=== PATIENT | female | born 1950 | race Caucasian/White ===

== ENCOUNTER → 2018-01-13 | Outpatient (CLI) | payer MEDICARE ==
--- NOTE | 2018-01-13 16:34 | MR ---
MR brain HISTORY: Memory loss Multiplanar multisequence imaging through the brain No comparisons There is no restricted diffusion. No hemorrhage or hydrocephalus. Corpus callosum, pituitary, cervica l medullary junction are normal. Scattered hyperintensities are present on inversion recovery and T2- weighted sequences within the deep white matter, periventricular white matter, subcortical and juxtac ortical white matter. There are approximately 40-50 lesions present. There is no mass effect or midli ne shift. No hydrocephalus or hemorrhage. Cerebellopontine angles, corpus callosum, pituitary, cervic al medullary junction are normal. The orbits show symmetric appearance. There are normal vascular alvina w voids. Paranasal sinuses are well aerated. Mastoids show no significant inflammatory change. There is atrophy likely age-related. IMPRESSION: Nonspecific white matter demyelination. Age-related atrophy.
== END | disposition home or self-care (01) ==
LOC: RADMRIMAIN 12:20
PROVIDERS: ATTEND Psychiatry & Neurology Neurology
DX: G37.8 Other specified demyelinating diseases of central nervous system (principal); G31.1 Senile degeneration of brain, not elsewhere classified
CPT/HCPCS: 70551

== ENCOUNTER → 2019-02-03 | Outpatient (CLI) | payer MEDICARE, OTHER | LOC: LABWHC1 10:45 | PROVIDERS: ATTEND Ophthalmology | DX: H53.9 Unspecified visual disturbance (principal) | CPT/HCPCS: 36415; 82565; 84520 ==

== ENCOUNTER → 2019-02-05 | Outpatient (CLI) | payer MEDICARE, OTHER | END | disposition home or self-care (01) | LOC: RADMRIMAIN 08:02 | PROVIDERS: ATTEND Ophthalmology | DX: Z53.9 Procedure and treatment not carried out, unspecified reason (principal) ==

== ENCOUNTER → 2019-06-08 | Outpatient (CLI) | payer MEDICARE, OTHER ==
--- NOTE | 2019-06-08 10:45 | CT ---
EXAMINATION TYPE: CT abdomen pelvis w con DATE OF EXAM: 06/08/2019 COMPARISON: None HISTORY: Colovesical fistula CT DLP: 1927 mGycm Automated exposure control for dose reduction was used. TECHNIQUE: Helical acquisition of images was performed from the lung bases through the pelvis. CONTRAST: Performed with Oral Contrast and with IV Contrast, patient injected with 50 ml mL of Isovue 300. FINDINGS: LUNG BASES: Innumerable tiny scattered pulmonary nodules are seen in the right middle lobe, right low er lobe and left lower lobe with the largest nodule seen in the left lower lobe measuring up to 1.6 c m and best seen on axial image 16. Adjacent linear atelectasis in smaller nodules are also seen in th is area. No pleural effusion. Post surgical changes of gastric lap band. LIVER/GB: Liver is normal in size. Gallbladder surgically absent. PANCREAS: No significant abnormality is seen. SPLEEN: No significant abnormality is seen. ADRENALS: No significant abnormality is seen. KIDNEYS: Atrophy of the bilateral kidneys. No evidence of hydronephrosis. Multiple cysts are seen in the bilateral kidneys with the largest seen in the inferior pole on the left measuring up to 3.0 cm. RETROPERITONEAL ADENOPATHY: None visualized REPRODUCTIVE ORGANS: Uterus is surgically absent. PELVIC ADENOPATHY: None visualized. OSSEOUS STRUCTURES: Grade 1 anterolisthesis of L5 on S1 with posterior fusion at L5-S1. Multilevel t horacolumbar spondylosis. No acute compression deformity. Degenerative changes of the bilateral hips, right greater than left. BOWEL: Diffuse marrow wall thickening is seen in the sigmoid colon with multiple areas of pericoloni c fat stranding and a small amount of simple fluid within the pelvic cul-de-sac. Oral contrast is see n reaching the rectum and mid sigmoid. There appears to be a small amount of contrast entering the clarke perior portion of the urinary bladder which is best seen on axial page 93 and coronal page 63. There is also air within the anterior urinary bladder measuring 2.0 cm and seen on axial image page 92. The re is diffuse bladder wall thickening and inflammatory stranding. No evidence of enhancing loculated fluid collection to suggest abscess. No free intraperitoneal air. 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 Innumerable scattered lung nodules with the largest soft tissue nodule seen in the left lower lobe me asuring up to 1.6 cm. Given the size, neoplastic process is not excluded. Further evaluation with ded icated CT of the chest with contrast is recommended.
== END | disposition home or self-care (01) ==
LOC: RADCTMAIN 06-07 07:41
PROVIDERS: ATTEND Surgery
DX: N32.1 Vesicointestinal fistula (principal)
CPT/HCPCS: 82565; 84520; 74177; 36415; Q9967

== ENCOUNTER → 2019-06-14 | Outpatient (CLI) | payer MEDICARE, OTHER ==
--- NOTE | 2019-06-14 08:31 | CT ---
EXAMINATION TYPE: CT chest w con DATE OF EXAM: 06/14/2019 COMPARISON: Abdomen and pelvis 06/08/2019 HISTORY: 68-year-old female Lung Nodule TECHNIQUE: Contiguous axial scanning of the chest after the administration of 50 ml mL of Isovue 370. Subsequent 50 mL saline bolus. Coronal/sagittal reconstructions performed. CT DLP: 628mGycm. Automatic exposure control utilized for a dose reduction. FINDINGS: Heart normal size without pericardial effusion. Coronary vessel calcifications are present. Aorta normal caliber with mild arch calcifications and conventional arch vessel branching anatomy. No thoracic lymphadenopathy. Redemonstrated in multiple bilateral pulmonary nodules, mostly measuring 5 mm or smaller, largest on the right measuring 8 mm at the medial right base and 6 mm in the right upper lobe. Largest on the le ft is within the left lower lobe measuring 1.6 cm as seen on 06/08/2019. No consolidation or pleural effusion. Tiny hiatal hernia. Lap band device visualized in the upper abdomen. Abdomen reported separately on r ecent CT. Bones: Bridging anterior endplate spondylosis suggestive of DISH in the mid to lower thoracic spine. IMPRESSION: Innumerable pulmonary nodules redemonstrated throughout the bilateral lungs. Most of the nodules janette ure 5 mm or smaller. The largest is the same nodule in the left lower lobe seen on 06/08/2019 measurin g 1.6 cm. Granulomatous disease, atypical infections, and metastatic disease are some differential co nsiderations. Follow-up CT in 3 months is recommended. Alternatively, given the size of the dominant nodule and depending on patient risk factors, PET CT may be considered.
== END | disposition home or self-care (01) ==
LOC: RADCTMAIN 06:21
PROVIDERS: ATTEND Surgery
DX: R91.8 Other nonspecific abnormal finding of lung field (principal)
CPT/HCPCS: 82565; 84520; 71260; 36415; Q9967

== ENCOUNTER 2019-06-23 01:07 | Inpatient (IN) | payer MEDICARE, OTHER ==
[2019-06-23] MEDS ORDERED: ACETAMINOPHEN TAB 500 MG TAB PO STA (01:35)
--- NOTE | 2019-06-23 01:37 | ED ---
General Adult HPI - General Chief complaint: Chest Pain Stated complaint: chest pain Time Seen by Provider: 06/23/19 01:35 Source: patient, family, EMS Mode of arrival: EMS - History of Present Illness Initial comments: Hannah is a 68-year-old female with multiple medical problems who presents to the emergency department today for evaluation of fever, an episode of Cordelia's which the patient described a shaking so hard she couldn't move her body and she began to develop pain all over her body including chest pain. She denies any diaphoresis shortness of breath. Patient does report a fever which was noted to be greater than 103 upon arrival. Patient states that she has a history of a colovesicular fistula and chronic urinary tract infections, she completed a oral antibiotics earlier today and was told by her surgeon that they do not want any other antibiotics until she has surgery she is scheduled to see her surgeon next week. - Related Data Home Medications Medication Instructions Recorded Confirmed Allopurinol [Zyloprim] 300 mg PO HS 10/13/14 10/24/14 Aspirin 325 mg PO DAILY 10/13/14 10/24/14 Atenolol [Tenormin] 25 mg PO QAM 10/13/14 10/24/14 Atorvastatin [Lipitor] 40 mg PO HS 10/13/14 10/24/14 Clopidogrel [Plavix] 75 mg PO DAILY 10/13/14 10/24/14 Furosemide [Lasix] 40 mg PO DAILY 10/13/14 10/24/14 Gemfibrozil [Lopid] 600 mg PO AC-BID 10/13/14 10/24/14 Hydrocodone/Acetaminophen [[place] 1 each PO TID PRN 10/13/14 10/24/14 5-325] Loratadine [Claritin] 10 mg PO DAILY 10/13/14 10/24/14 Losartan/Hydrochlorothiazide 0.5 tab PO QAM 10/13/14 10/24/14 [Losartan-Hctz 100-12.5 mg Tab] Metolazone [Zaroxolyn] 5 mg PO DAILY 10/13/14 10/24/14 Multivitamins, Thera [Multivitamin] 1 each PO DAILY 10/13/14 10/24/14 Pantoprazole Sodium [Protonix] 40 mg PO QAM 10/13/14 10/24/14 Tylenol Arthritis 2 tab PO BID PRN 10/13/14 10/24/14 Cholecalciferol [Vitamin D3] 5,000 unit PO DAILY 10/24/14 10/24/14 Pseudoephedrine HCl [Sudafed] 30 mg PO Q4HR PRN 10/24/14 10/24/14 Previous Rx's Medication Instructions Recorded Cephalexin [Keflex] 500 mg PO Q6HR #20 cap 10/25/14 HYDROcodone/APAP 7.5-325MG [[place] 2 each PO Q6H PRN #90 tab 10/25/14 7.5-325] Allergies Allergy/AdvReac Type Severity Reaction Status Date / Time ibuprofen [From Motrin] Allergy KIDNEY Verified 10/24/14 10:58 FAILURE Iodinated Contrast- Oral and Allergy Rash/Hives Verified 10/24/14 10:58 IV Dye [Iodinated Contrast Media - IV Dye] isoniazid Allergy RASH,WT Verified 10/24/14 10:58 GAIN,ELEV B/P,ELEV BLOOD SUGAR morphine Allergy Dyspnea Verified 10/24/14 10:58 venom-honey bee Allergy SWELLING, Verified 10/24/14 10:58 [bee venom (honey bee)] HIVES meperidine HCl [From Demerol] AdvReac Nausea & Verified 10/24/14 10:58 Vomiting SHRIMP Allergy Rash/Hives Uncoded 10/24/14 10:58 VACCINE PRESERVATIVES Allergy HIVES Uncoded 10/24/14 10:58 Review of Systems ROS Statement: Those systems with pertinent positive or pertinent negative responses have been documented in the HPI. ROS Other: All systems not noted in ROS Statement are negative. Past Medical History Past Medical History: Diabetes Mellitus, Deep Vein Thrombosis (DVT), Hyperlipidemia, Hypertension, Myocardial Infarction (MO), Osteoarthritis (OA), Pulmonary Embolus (PE), Renal Disease Additional Past Medical History / Comment(s): 10/24/14 Pt admitted s/p total R shoulder and injection R hand's middle finger. Other HX: NEURAPATHY CRISTOPHER HANDS AND FEET,MITRAL VALVE PROLAPSE,VARICOSE VEINS, STEROID INJECTIONS W/IN 3 MOS,KIDNEY STONES,RECENT TX FOR UA W/ BACTRIM. Colorectal fistula 2018 Last Myocardial Infarction Date:: 2006 History of Any Multi-Drug Resistant Organisms: None Reported Past Surgical History: Appendectomy, Cholecystectomy, Heart Catheterization With Stent, Hysterectomy, Tonsillectomy Additional Past Surgical History / Comment(s): 10/24/14 Total R shoulder and in jection R middle finger. COLECTOMY R/T RUPTURED DIVERTICULI AND ABSCESS,LAB BAND 2007-FILL PRESENT TO SEE DR FREGOSO PRIOR TO OR TO HAVE REMOVED.,CARDIAC STENTS X2, REPAIR RT ACHILLES TENDON,CRISTOPHER CARPEL TUNNEL REPAIR,LT RADIAL HEAD PARTIALLY REMOVED W/ REPAIR,LAMINECTOMY L1-L4,FUSION L5-S1 Past Anesthesia/Blood Transfusion Reactions: No Reported Reaction Date of Last Stent Placement:: 2006 Past Psychological History: No Psychological Hx Reported Smoking Status: Never smoker Past Alcohol Use History: Occasional Past Drug Use History: None Reported - Past Family History Father Family Medical History: Deep Vein Thrombosis (DVT), Pulmonary Embolus Mother Family Medical History: Deep Vein Thrombosis (DVT), Pulmonary Embolus General Exam - General Exam Comments Initial Comments: Physical Exam GENERAL: Chronically ill appearing HENT: Normocephalic, Atraumatic. EYES: PERRL, EOMI PULMONARY: Unlabored respirations. No audible rales rhonchi or wheezing was noted. CARDIOVASCULAR: There is a regular rate and rhythm without any murmurs gallops or rubs. ABDOMEN: Soft and nontender with normal bowel sounds. SKIN: Skin is clear with no lesions or rashes and otherwise unremarkable. Hot to touch : Deferred NEUROLOGIC: Patient is alert and oriented x3. Moving all extremities spontaneously MUSCULOSKELETAL: Normal extremities with adequate strength and full range of motion. No lower extremity swelling or edema. No calf tenderness. PSYCHIATRIC: Normal psychiatric evaluation. Course Vital Signs 06/23/19 06/23/19 06/23/19 01:12 01:15 02:15 Temperature 103.1 F H 101.3 F H Pulse Rate 106 H 105 H 98 Respiratory 20 24 22 Rate Blood Pressure 120/70 109/78 93/50 O2 Sat by Pulse 95 95 95 Oximetry 06/23/19 06/23/19 06/23/19 03:15 04:40 04:53 Temperature 100.1 F H Pulse Rate 96 99 98 Respiratory 20 20 20 Rate Blood Pressure 97/48 O2 Sat by Pulse 95 Oximetry 06/23/19 06/23/19 06/23/19 05:05 05:10 05:15 Temperature Pulse Rate 106 H 105 H 104 H Respiratory Rate Blood Pressure 82/68 82/68 87/49 O2 Sat by Pulse 98 98 97 Oximetry 06/23/19 05:52 Temperature 99.4 F Pulse Rate 97 Respiratory 20 Rate Blood Pressure 98/52 O2 Sat by Pulse 97 Oximetry - Reevaluation(s) Reevaluation #1: Called to the patient's bedside at approximately 4:15 AM, patient having tongue swelling and difficulty breathing after receiving Rocephin. ALLERGIC reaction medications were ordered. 06/23/19 04:33 EKG Findings - EKG Comments: EKG Findings:: EKG was obtained as part of a septic workup, EKG obtained at 1:20 AM, rate is 105 rhythm is sinus tachycardia with a right bundle-branch block, RI 140, curious 150, QTC [address] elevations there are ST depressions the patient is not having any active chest pain. Medical Decision Making - Medical Decision Making The patient was seen and evaluated upon arrival emergency department patient was noted be febrile tachycardic with a known source of infection being a urinary tract infection therefore septic workup was initiated Labs results with the slightly worsening kidney function, urinalysis consistent with urinary tract infection Rocephin was ordered Patient care was discussed with Dr. Escalante who agrees with plan for admission to the hospital, patient's blood pressure was mildly low lactic was elevated at 3 therefore additional IV fluids were ordered Based on patient's height her ideal body weight is 63 kg therefore 1900 mL's of fluid would be adequate to meet the 30 mL/kg bolus care was discussed with her primary care physician Dr. Ferreira who will be admitting to the [facility] this week Patient care was discussed with admitting physician Dr. Escalante who agrees with plan for admission, he came to bedside and evaluated the patient within expressed concern that prior to arrival she did have some right sided weakness, therefore computed tomography scan of the head was ordered. Patient went to CT head imaging study without any contrast to return to the room. Upon return patient began complaining that she felt that her tongue was swelling she is having difficulty speaking. I was called to bedside to evaluate the patient noted that she did have angioedema of her tongue and sublingual region, in addition she had some mild expiratory wheezing. At this time treatment for ALLERGIC reaction was initiated with IM epinephrine, IV Benadryl, Solu-Medrol and Pepcid. As well as a breathing treatment. Patient care was again discussed with Dr. Mahmoud recommends patient be admitted to the ICU given that she has angioedema Patient was reevaluated after meds. Angioedema is no longer worsening she is no longer wheezing she never developed hives. However patient is warm to the touch and skin is clammy. I suspect is secondary to sepsis. At this time patient will be transferred to the ICU for further management. Patient does remain mildly hypotensive however mean arterial pressure is in the 70s. - Lab Data Result diagrams: 06/23/19 01:33 06/23/19 01:33 Lab Results 06/23/19 06/23/19 06/23/19 Range/Units 01:33 01:33 01:33 WBC 9.4 (3.8-10.6) k/uL RBC 4.46 (3.80-5.40) m/uL Hgb 12.7 (11.4-16.0) gm/dL Hct 39.3 (34.0-46.0) % MCV 88.2 (80.0-100.0) fL MCH 28.4 (25.0-35.0) pg MCHC 32.2 (31.0-37.0) g/dL RDW 18.8 H (11.5-15.5) % Plt Count 208 (150-450) k/uL Neutrophils % 89 % Lymphocytes % 5 % Monocytes % 4 % Eosinophils % 1 % Basophils % 0 % Neutrophils # 8.4 H (1.3-7.7) k/uL Lymphocytes # 0.5 L (1.0-4.8) k/uL Monocytes # 0.4 (0-1.0) k/uL Eosinophils # 0.1 (0-0.7) k/uL Basophils # 0.0 (0-0.2) k/uL Anisocytosis Slight PT (9.0-12.0) sec INR (<1.2) APTT (22.0-30.0) sec Sodium 138 (137-145) mmol/L Potassium 3.9 (3.5-5.1) mmol/L Chloride 98 (98-107) mmol/L Carbon Dioxide 28 (22-30) mmol/L Anion Gap 12 mmol/L BUN 39 H (7-17) mg/dL Creatinine 1.76 H (0.52-1.04) mg/dL Est GFR (CKD-EPI)AfAm 34 (>60 ml/min/1.73 sqM) Est GFR (CKD-EPI)NonAf 29 (>60 ml/min/1.73 sqM) Glucose 158 H (74-99) mg/dL Lactic Ac Sepsis Rflx Plasma Lactic Acid Steve 3.0 H* (0.7-2.0) mmol/L Calcium 9.0 (8.4-10.2) mg/dL Total Bilirubin 0.6 (0.2-1.3) mg/dL AST 21 (14-36) U/L ALT 23 (9-52) U/L Alkaline Phosphatase 75 (38-126) U/L Troponin I (0.000-0.034) ng/mL Total Protein 6.7 (6.3-8.2) g/dL Albumin 3.8 (3.5-5.0) g/dL Urine Color Urine Appearance (Clear) Urine pH (5.0-8.0) Ur Specific [place] (1.001-1.035) Urine Protein (Negative) Urine Glucose (UA) (Negative) Urine Ketones (Negative) Urine Blood (Negative) Urine Nitrite (Negative) Urine Bilirubin (Negative) Urine Urobilinogen (<2.0) mg/dL Ur Leukocyte Esterase (Negative) Urine RBC (0-5) /hpf Urine WBC (0-5) /hpf Urine WBC Clumps (None) /hpf Ur Squamous Epith Cells (0-4) /hpf Urine Bacteria (None) /hpf 06/23/19 06/23/19 06/23/19 Range/Units 01:33 01:33 01:33 WBC (3.8-10.6) k/uL RBC (3.80-5.40) m/uL Hgb (11.4-16.0) gm/dL Hct (34.0-46.0) % MCV (80.0-100.0) fL MCH (25.0-35.0) pg MCHC (31.0-37.0) g/dL RDW (11.5-15.5) % Plt Count (150-450) k/uL Neutrophils % % Lymphocytes % % Monocytes % % Eosinophils % % Basophils % % Neutrophils # (1.3-7.7) k/uL Lymphocytes # (1.0-4.8) k/uL Monocytes # (0-1.0) k/uL Eosinophils # (0-0.7) k/uL Basophils # (0-0.2) k/uL Anisocytosis PT 10.3 (9.0-12.0) sec INR 1.0 (<1.2) APTT 31.3 H (22.0-30.0) sec Sodium (137-145) mmol/L Potassium (3.5-5.1) mmol/L Chloride (98-107) mmol/L Carbon Dioxide (22-30) mmol/L Anion Gap mmol/L BUN (7-17) mg/dL Creatinine (0.52-1.04) mg/dL Est GFR (CKD-EPI)AfAm (>60 ml/min/1.73 sqM) Est GFR (CKD-EPI)NonAf (>60 ml/min/1.73 sqM) Glucose (74-99) mg/dL Lactic Ac Sepsis Rflx Plasma Lactic Acid Steve (0.7-2.0) mmol/L Calcium (8.4-10.2) mg/dL Total Bilirubin (0.2-1.3) mg/dL AST (14-36) U/L ALT (9-52) U/L Alkaline Phosphatase (38-126) U/L Troponin I <0.012 (0.000-0.034) ng/mL Total Protein (6.3-8.2) g/dL Albumin (3.5-5.0) g/dL Urine Color Yellow Urine Appearance Cloudy H (Clear) Urine pH 5.0 (5.0-8.0) Ur Specific [place] 1.015 (1.001-1.035) Urine Protein 1+ H (Negative) Urine Glucose (UA) 4+ H (Negative) Urine Ketones Negative (Negative) Urine Blood Moderate H (Negative) Urine Nitrite Positive H (Negative) Urine Bilirubin Negative (Negative) Urine Urobilinogen <2.0 (<2.0) mg/dL Ur Leukocyte Esterase Large H (Negative) Urine RBC 39 H (0-5) /hpf Urine WBC >182 H (0-5) /hpf Urine WBC Clumps Many H (None) /hpf Ur Squamous Epith Cells 8 H (0-4) /hpf Urine Bacteria Occasional H (None) /hpf 06/23/19 Range/Units 02:01 WBC (3.8-10.6) k/uL RBC (3.80-5.40) m/uL Hgb (11.4-16.0) gm/dL Hct (34.0-46.0) % MCV (80.0-100.0) fL MCH (25.0-35.0) pg MCHC (31.0-37.0) g/dL RDW (11.5-15.5) % Plt Count (150-450) k/uL Neutrophils % % Lymphocytes % % Monocytes % % Eosinophils % % Basophils % % Neutrophils # (1.3-7.7) k/uL Lymphocytes # (1.0-4.8) k/uL Monocytes # (0-1.0) k/uL Eosinophils # (0-0.7) k/uL Basophils # (0-0.2) k/uL Anisocytosis PT (9.0-12.0) sec INR (<1.2) APTT (22.0-30.0) sec Sodium (137-145) mmol/L Potassium (3.5-5.1) mmol/L Chloride (98-107) mmol/L Carbon Dioxide (22-30) mmol/L Anion Gap mmol/L BUN (7-17) mg/dL Creatinine (0.52-1.04) mg/dL Est GFR (CKD-EPI)AfAm (>60 ml/min/1.73 sqM) Est GFR (CKD-EPI)NonAf (>60 ml/min/1.73 sqM) Glucose (74-99) mg/dL Lactic Ac Sepsis Rflx Y Plasma Lactic Acid Steve (0.7-2.0) mmol/L Calcium (8.4-10.2) mg/dL Total Bilirubin (0.2-1.3) mg/dL AST (14-36) U/L ALT (9-52) U/L Alkaline Phosphatase (38-126) U/L Troponin I (0.000-0.034) ng/mL Total Protein (6.3-8.2) g/dL Albumin (3.5-5.0) g/dL Urine Color Urine Appearance (Clear) Urine pH (5.0-8.0) Ur Specific [place] (1.001-1.035) Urine Protein (Negative) Urine Glucose (UA) (Negative) Urine Ketones (Negative) Urine Blood (Negative) Urine Nitrite (Negative) Urine Bilirubin (Negative) Urine Urobilinogen (<2.0) mg/dL Ur Leukocyte Esterase (Negative) Urine RBC (0-5) /hpf Urine WBC (0-5) /hpf Urine WBC Clumps (None) /hpf Ur Squamous Epith Cells (0-4) /hpf Urine Bacteria (None) /hpf Critical Care Time Critical Care Time: Yes Total Critical Care Time: 75 Critical Care Time: Critical Care Time Critical care time was exclusive of separately billable procedures and treating other patients and teaching time. Critical care was necessary to treat or prevent imminent or life-threatening deterioration. Given the critical condition in which the patient arrived, the patient was immediately assessed by myself and the nurse, and cardiac monitoring initiated due to the potential for rapid decompensation of the patient's clinical condition. During the course of the patients stay, I spent a considerable amount of time at the bedside performing serial re-evaluations of the patient's hemodynamic and clinical status because of the recognized potential threat to life or limb in this condition. I then had a chance to review not only all of the available current laboratory and radiographic studies obtained today, but I also reviewed old records available to me at the time. Additionally, any ancillary information available including recording artist records were reviewed. Sequential vital signs were obtained. Disposition Clinical Impression: Sepsis, UTI (urinary tract infection), Angioedema, Allergic reaction caused by a drug Disposition: ADMITTED IP TO THIS [facility] Condition: Serious
[2019-06-23 01:45] LABS: Anisocytosis Slight; Basophils % (A) 0 %; Eosinophils # (A) 0.1 k/uL (0-0.7); Eosinophils % (A) 1 %; HCT 39.3 % (34.0-46.0); HGB 12.7 gm/dL (11.4-16.0); Lymphocytes # (A) 0.5 k/uL (1.0-4.8); Lymphocytes % (A) 5 %; MCH 28.4 pg (25.0-35.0); MCHC 32.2 g/dL (31.0-37.0); MCV 88.2 fL (80.0-100.0); Mean Platelet Volume 7.1; Monocytes # (A) 0.4 k/uL (0-1.0); Monocytes % (A) 4 %; Neutrophils # (A) 8.4 k/uL (1.3-7.7); Neutrophils % (A) 89 %; Platelet Count 208 k/uL (150-450); RBC 4.46 m/uL (3.80-5.40); RDW 18.8 % (11.5-15.5); WBC 9.4 k/uL (3.8-10.6)
[2019-06-23 01:52] LABS: Appearance,Urine Cloudy (Clear); Bacteria,Urine Occasional /hpf; Bilirubin,Urine Negative (Negative); Blood,Urine Moderate (Negative); Color,Urine Yellow; Glucose,Urine (UA) 4+ (Negative); Ketones,Urine Negative (Negative); Leukocyte Esterase,Urine Large (Negative); Nitrite,Urine Positive (Negative); Protein,Urine 1+ (Negative); RBC,Urine 39 /hpf (0-5); Specific Gravity,Urine 1.015 (1.001-1.035); Squamous Epithelial Cell,Urine 8 /hpf (0-4); Urobilinogen,Urine <2.0 mg/dL (<2.0); WBC,Urine >182 /hpf (0-5)
[2019-06-23 01:58] LABS: Albumin 3.8 g/dL (3.5-5.0); Potassium 3.9 mmol/L (3.5-5.1); Total Bilirubin 0.6 mg/dL (0.2-1.3); Total Protein 6.7 g/dL (6.3-8.2)
[2019-06-23 01:59] LABS: Partial Thromboplastin Time 31.3 sec (22.0-30.0); Prothrombin Time 10.3 sec (9.0-12.0)
[2019-06-23] MEDS: SODIUM CHLORIDE 0.9% 500 ML 500 ML IV SCH ×3 (01:59→03:07)
[2019-06-23] MEDS ORDERED: NALOXONE 0.4 MG/ML 1 ML VIAL IV PRN (02:47)
[2019-06-23] MEDS ORDERED: ACETAMINOPHEN TAB 325 MG TAB PO PRN ×2 (02:47→04:02)
[2019-06-23] MEDS ORDERED: SODIUM CHLORIDE 0.9% 500 ML 500 ML IV ONE (03:10)
[2019-06-23] MEDS ORDERED: SODIUM CHLORIDE 0.9% 1,000 ML IV ONE (03:10)
[2019-06-23] MEDS: SODIUM CHLORIDE 0.9% 1,000 ML IV SCH ×3 (03:19→20:55)
[2019-06-23 03:47] LABS: Glucose,Whole Blood 152 mg/dL (75-99)
--- NOTE | 2019-06-23 04:15 | CT ---
EXAM: CT Head Without Intravenous Contrast CLINICAL HISTORY: ITS.REASON CT Reason: right sided weakness resolved ?TIA TECHNIQUE: Axial computed tomography images of the head/brain without intravenous contrast. CTDI is 49 mGy and DLP is 1274 mGy-cm. This CT exam was performed using one or more of the following dose reduction techniques: automated exposure control, adjustment of the mA and/or kV according to patient size, and/or use of iterative reconstruction technique. COMPARISON: MRI brain 01/13/18 FINDINGS: Brain: No hemorrhage, large hypodensity, or mass effect. Ventricles: No hydrocephalus. Bones/joints: Unremarkable. Soft tissues: Unremarkable. Sinuses: Unremarkable. Mastoid air cells: Clear. IMPRESSION: No acute hemorrhage, hydrocephalus, or mass effect.
--- NOTE | 2019-06-23 04:19 | P.HPIM ---
History of Present Illness H&P Date: 06/23/19 Chief Complaint: Chest pain 68-year-old female with history of diabetes CK D3, colovesical fistula Patient reports that she was sleeping when she woke up at 11:30 before midnight she couldn't move her right side took her like 30 minutes to roll from one side to the other trying to get up and go to the bathroom and then she felt that she's having chest pain reported as pressure central 6 out of 10 in severity she was getting anxious and hyperventilating reports associated nausea but no sweating no vomiting, associated heart tracing but she thinks because of the emotional stress she got concerned notified her granddaughter who called EMS patient couldn't move her right side for about an hour when starts resolving when she got to the ER. Currently denies any right-sided weakness she denies any history of stroke. She reports history of coronary artery disease with stents she is compliant with her medications. Patient also reports recent diagnosis of colovesical fistula early in April this year since then she's been having recurrent UTI been on prolonged courses of antibiotics. She reports chronic difficulty with urination since her diagnosis she reports lower abdominal pain and foul-smelling urine she just finished last pill of her Levaquin today for UTI. She reports fevers and chills. Otherwise he denies any current chest pain or difficulty in breathing she also denies any right-sided weakness at this time she is able to move both upper and lower extremities. Patient EKG showed right bundle branch block, troponins were negative. Patient had slightly elevated lactic acid, she was tachycardic and febrile when she came in. This is thought to be secondary to underlying UTI Patient otherwise denies any GI bleeding any changes in her vision or hearing denies any new focal neurologic deficits at this time other than the right-sided weakness that has resolved denies any associated speech difficulties Review of Systems Pertinent positives as noted in HPI. All other systems were reviewed and are negative Past Medical History Past Medical History: Diabetes Mellitus, Deep Vein Thrombosis (DVT), Hyperlipidemia, Hypertension, Myocardial Infarction (HI), Osteoarthritis (OA), Pulmonary Embolus (PE), Renal Disease Additional Past Medical History / Comment(s): 10/24/14 Pt admitted s/p total R shoulder and injection R hand's middle finger. Other HX: NEURAPATHY CRISTOPHER HANDS AND FEET,MITRAL VALVE PROLAPSE,VARICOSE VEINS, STEROID INJECTIONS W/IN 3 MOS, KIDNEY STONES,RECENT TX FOR UA W/ BACTRIM. Colovesical fistula 2019 Last Myocardial Infarction Date:: 2006 History of Any Multi-Drug Resistant Organisms: None Reported Past Surgical History: Appendectomy, Cholecystectomy, Heart Catheterization With Stent, Hysterectomy, Tonsillectomy Additional Past Surgical History / Comment(s): 10/24/14 Total R shoulder and injection R middle finger. COLECTOMY R/T RUPTURED DIVERTICULI AND ABSCESS,LAB BAND 2007-FILL PRESENT TO SEE DR FREGOSO PRIOR TO OR TO HAVE REMOVED.,CARDIAC STENTS X2, REPAIR RT ACHILLES TENDON,CRISTOPHER CARPEL TUNNEL REPAIR,LT RADIAL HEAD PARTIALLY REMOVED W/ REPAIR,LAMINECTOMY L1-L4,FUSION L5-S1 Past Anesthesia/Blood Transfusion Reactions: No Reported Reaction Date of Last Stent Placement:: 2006 Past Psychological History: No Psychological Hx Reported Smoking Status: Never smoker Past Alcohol Use History: Occasional Past Drug Use History: None Reported - Past Family History Father Family Medical History: Deep Vein Thrombosis (DVT), Pulmonary Embolus Mother Family Medical History: Deep Vein Thrombosis (DVT), Pulmonary Embolus Medications and Allergies Home Medications Medication Instructions Recorded Confirmed Type Allopurinol [Zyloprim] 300 mg PO HS 10/13/14 10/24/14 History Aspirin 325 mg PO DAILY 10/13/14 10/24/14 History Atenolol [Tenormin] 25 mg PO QAM 10/13/14 10/24/14 History Atorvastatin [Lipitor] 40 mg PO HS 10/13/14 10/24/14 History Clopidogrel [Plavix] 75 mg PO DAILY 10/13/14 10/24/14 History Furosemide [Lasix] 40 mg PO DAILY 10/13/14 10/24/14 History Gemfibrozil [Lopid] 600 mg PO AC-BID 10/13/14 10/24/14 History Hydrocodone/Acetaminophen [Call 1 each PO TID PRN 10/13/14 10/24/14 History 5-325] Loratadine [Claritin] 10 mg PO DAILY 10/13/14 10/24/14 History Losartan/Hydrochlorothiazide 0.5 tab PO QAM 10/13/14 10/24/14 History [Losartan-Hctz 100-12.5 mg Tab] Metolazone [Zaroxolyn] 5 mg PO DAILY 10/13/14 10/24/14 History Multivitamins, Thera [Multivitamin] 1 each PO DAILY 10/13/14 10/24/14 History Pantoprazole Sodium [Protonix] 40 mg PO QAM 10/13/14 10/24/14 History Tylenol Arthritis 2 tab PO BID PRN 10/13/14 10/24/14 History Cholecalciferol [Vitamin D3] 5,000 unit PO DAILY 10/24/14 10/24/14 History Pseudoephedrine HCl [Sudafed] 30 mg PO Q4HR PRN 10/24/14 10/24/14 History Cephalexin [Keflex] 500 mg PO Q6HR #20 cap 10/25/14 Rx HYDROcodone/APAP 7.5-325MG [Call 2 each PO Q6H PRN #90 tab 10/25/14 Rx 7.5-325] Allergies Allergy/AdvReac Type Severity Reaction Status Date / Time ibuprofen [From Motrin] Allergy KIDNEY Verified 10/24/14 10:58 FAILURE Iodinated Contrast- Oral and Allergy Rash/Hives Verified 10/24/14 10:58 IV Dye [Iodinated Contrast Media - IV Dye] isoniazid Allergy RASH,WT Verified 10/24/14 10:58 GAIN,ELEV B/P,ELEV BLOOD SUGAR morphine Allergy Dyspnea Verified 10/24/14 10:58 venom-honey bee Allergy SWELLING, Verified 10/24/14 10:58 [bee venom (honey bee)] HIVES meperidine HCl [From Demerol] AdvReac Nausea & Verified 10/24/14 10:58 Vomiting SHRIMP Allergy Rash/Hives Uncoded 10/24/14 10:58 VACCINE PRESERVATIVES Allergy HIVES Uncoded 10/24/14 10:58 Physical Exam Vitals: Vital Signs Temp Pulse Resp BP Pulse Ox 06/23/19 01:12 103.1 F H 106 H 20 120/70 95 Intake and Output 06/22/19 06/22/19 06/23/19 14:59 22:59 06:59 Other: Weight 110.677 kg Constitutional: No acute distress, conversant, pleasant Eyes: Anicteric sclerae, moist conjunctiva, no lid-lag Pupils equal round reactive to light ENMT: NC/AT Oropharynx clear, no erythema, or exudates Neck: Supple, FROM, no masses, or JVD No carotid bruits No thyromegaly Lungs: Clear to auscultation Clear to percussion Normal respiratory effort, no accessory muscle use Cardiovascular: Heart regular in rate and rhythm, No murmurs, gallops, or rubs +1 Bilateral leg edema Abdominal: Soft, tenderness to palpation of the lower abdomen Nontender, no guarding, rebound or rigidity Abdomen moving with respiration Normoactive bowel sounds No hepatomegaly, No splenomegaly No palpable mass No abdominal wall hernia noted Skin: Normal temperature, tone, texture, turgor No induration No subcutaneous nodules No rash, lesions No ulcers Extremities: No digital cyanosis No clubbing Pedal pulses intact and symmetrical Radial pulses intact and symmetrical No calf tenderness Psychiatric: Alert and oriented to person, place and time Appropriate affect fair judgment Neuro Muscles Strength 5/5 on left upper and lower extremities, and right upper extremity. 4/5 Right lower extremity Sensation to light touch grossly present throughout Cranial nerves II-XII grossly intact, limited range of motion of the left eye due to history of surgery to the muscles of the eye No focal sensory deficits Finger-nose exam was unremarkable Lymphatics: no palpable cervical or supraclavicular , or inguinal lymph nodes Results CBC & Chem 7: 06/23/19 01:33 06/23/19 01:33 Labs: Abnormal Lab Results - Last 24 Hours (Table) 06/23/19 06/23/19 06/23/19 Range/Units 01:33 01:33 01:33 RDW 18.8 H (11.5-15.5) % Neutrophils # 8.4 H (1.3-7.7) k/uL Lymphocytes # 0.5 L (1.0-4.8) k/uL APTT (22.0-30.0) sec BUN 39 H (7-17) mg/dL Creatinine 1.76 H (0.52-1.04) mg/dL Glucose 158 H (74-99) mg/dL POC Glucose (mg/dL) (75-99) mg/dL Plasma Lactic Acid Steve 3.0 H* (0.7-2.0) mmol/L Urine Appearance (Clear) Urine Protein (Negative) Urine Glucose (UA) (Negative) Urine Blood (Negative) Urine Nitrite (Negative) Ur Leukocyte Esterase (Negative) Urine RBC (0-5) /hpf Urine WBC (0-5) /hpf Urine WBC Clumps (None) /hpf Ur Squamous Epith Cells (0-4) /hpf Urine Bacteria (None) /hpf 06/23/19 06/23/19 06/23/19 Range/Units 01:33 01:33 03:40 RDW (11.5-15.5) % Neutrophils # (1.3-7.7) k/uL Lymphocytes # (1.0-4.8) k/uL APTT 31.3 H (22.0-30.0) sec BUN (7-17) mg/dL Creatinine (0.52-1.04) mg/dL Glucose (74-99) mg/dL POC Glucose (mg/dL) 152 H (75-99) mg/dL Plasma Lactic Acid Steve (0.7-2.0) mmol/L Urine Appearance Cloudy H (Clear) Urine Protein 1+ H (Negative) Urine Glucose (UA) 4+ H (Negative) Urine Blood Moderate H (Negative) Urine Nitrite Positive H (Negative) Ur Leukocyte Esterase Large H (Negative) Urine RBC 39 H (0-5) /hpf Urine WBC >182 H (0-5) /hpf Urine WBC Clumps Many H (None) /hpf Ur Squamous Epith Cells 8 H (0-4) /hpf Urine Bacteria Occasional H (None) /hpf Assessment and Plan Assessment: 68 year old f history of hypertension and diabetes admitted as an inpatient with anticipated length of stay more than 48 hours due to sepsis secondary to urinary tract infection, chest pain to rule out acute coronary syndrome, right-sided weakness that resolved rule out TIA Plan: Sepsis secondary to UTI, recurrent UTI secondary to colovesical fistula Follow-up cultures Symptomatic control Tylenol for fevers Pain control Rocephin Chest pain rule out ACS monitor technician Trend cardiac enzymes Cardiology consult Resume home meds aspirin Plavix statin beta blockers losartan Right-sided weakness rule out TIA Check stat CT of the brain without contrast GI workup including echo, ultrasound carotid Doppler, TSH, lipid profile, B12 Neuro consult Neurochecks DVT prophylaxis mechanical secondary to possible underlying TIA to avoid any hemorrhagic conversion with pharmacologic DVT prophylaxis Chronic conditions, all currently stable Hypertension Diabetes mellitus Hypothyroid Incidental finding of lung lesion History of venous thromboembolic CK D stage III Resume home meds Surrogate decision-maker: *Granddaughter CODE STATUS: Full code Discussed with: Patient, ER, RN Anticipated discharge: 48-[address]: Pending clinical course A total of 60 minutes was spent on the care of this complex patient more than 50% of the time was spent in counseling and care coordination.
[2019-06-23] MEDS ORDERED: diphenhydrAMINE 50 MG/ML 1 ML VIAL IVP STA (04:20)
[2019-06-23] MEDS ORDERED: FAMOTIDINE 20 MG/2 ML VIAL IV STA (04:20)
[2019-06-23] MEDS ORDERED: methylPREDNISolone SOD SUCCI 125 MG/2 ML VIAL IV STA (04:20)
[2019-06-23] MEDS: EPINEPHrine 1 MG/ML 1 ML AMP IM SCH ×2 (04:24→08:53)
[2019-06-23] MEDS ORDERED: EPINEPHrine 1 MG/ML 1 ML AMP IM SCH (04:30)
[2019-06-23] MEDS ORDERED: IPRATROPIUM-ALBUTEROL 3 ML NEB INHALATION STA (04:34)
[2019-06-23 06:55] LABS: Glucose,Whole Blood 264 mg/dL (75-99)
[2019-06-23 07:36] LABS: Glucose,Whole Blood 230 mg/dL (75-99)
[2019-06-23] MEDS: ATENOLOL 25 MG TAB PO SCH (08:54)
[2019-06-23] MEDS: PANTOPRAZOLE 40 MG TABLET PO SCH (08:57)
[2019-06-23] MEDS: CLOPIDOGREL 75 MG TAB PO SCH (08:57)
[2019-06-23] MEDS ORDERED: LOSARTAN-HCTZ 50-12.5 MG 1 EACH TAB PO SCH (09:00)
[2019-06-23] MEDS ORDERED: LEVOFLOXACIN 750MG-D5W PMX 750 MG in DEXTROSE/WATER 1 150ML.BAG IVPB SCH (09:00)
[2019-06-23] MEDS ORDERED: HEPARIN SODIUM,PORCINE 5,000 UNIT/ML 1 ML VIAL SQ SCH (09:00)
[2019-06-23] MEDS ORDERED: ASPIRIN 325 MG TAB PO SCH (09:00)
[2019-06-23] MEDS ORDERED: LOSARTAN 50 MG TAB PO SCH (09:00)
--- NOTE | 2019-06-23 09:23 | US ---
EXAMINATION TYPE: US carotid duplex BILAT DATE OF EXAM: 06/23/2019 COMPARISON: NONE CLINICAL HISTORY: TIA. EXAM MEASUREMENTS: RIGHT: Peak Systolic Velocity (PSV) cm/sec ----- Right CCA: 96.8 ----- Right ICA: 106.4 ----- Right ECA: 111.3 ICA/CCA ratio: 1.1 RIGHT: End Diastole cm/sec ----- Right CCA: 17.6 ----- Right ICA: 20.8 ----- Right ECA: 11.1 LEFT: Peak Systolic Velocity (PSV) cm/sec ----- Left CCA: 86.6 ----- Left ICA: 88.7 ----- Left ECA: 122.1 ICA/CCA ratio: 1.0 LEFT: End Diastole cm/sec ----- Left CCA: 15.5 ----- Left ICA: 18.7 ----- Left ECA: 9.0 VERTEBRALS (direction of flow): Right Vertebral: Antegrade Left Vertebral: Antegrade Rhythm: Arrhythmia ICU patient morbidly obese patient with very thick neck, breathing deeply, technically difficult stud y. No obvious stenosis by ultrasound. Moderate to sever plaque. IMPRESSION: Exam is limited by patient body habitus and difficulty breathing. 1. Mild degree of grayscale atheromatous plaquing with no sonographically evident hemodynamically sig nificant stenosis within either visualized carotid arterial system. 2. Cardiac arrhythmia is incidentally noted. Correlate with EKG. Criteria for Assigning % of Stenosis / Diameter reduction (Estimation based on the indirect measurements of the internal carotid artery velocities (ICA PSV). 1. Normal (no stenosis)=ICA PSV < 125 cm/s: ratio < 2.0: ICA EDV<40 cm/s. 2. Less than 50% stenosis=ICA PSV < 125 cm/s: ratio < 2.0: ICA EDV<40 cm/s. 3. 50 to 69% stenosis=ICA PSV of 125 to 230 cm/s: ration 2.0 ? 4.0: ICA EDV 40-100 cm/s. 4. Greater than 70% stenosis to near occlusion= ICA PSV > 230 cm/s: ratio > 4.0: ICA EDV > 100 cm/s. 5. Near occlusion= ICA PSV velocities may be low or undetectable: variable ratio and ICA EDV. 6. Total occlusion=unable to detect flow.
[2019-06-23 09:31] LABS: Troponin I 0.112 ng/mL (0.000-0.034)
--- NOTE | 2019-06-23 10:01 | ECHOF ---
Referral Reason:TIA MEASUREMENTS -------- HEIGHT: 172.7 cm WEIGHT: 110.7 kg BP: 98/52 RVIDd: 2.8 cm (< 3.3) IVSd: 1.5 cm (0.6 - 1.1) LVIDd: 4.2 cm (3.9 - 5.3) LVPWd: 1.9 cm (0.6 - 1.1) IVSs: 1.8 cm LVIDs: 3.0 cm LVPWs: 2.0 cm LAESV Index (A-L): 19.25 ml/m IVSd: 1.4 cm (0.6 - 1.1) LVIDd: 5.5 cm (3.9 - 5.3) LVPWd: 1.9 cm (0.6 - 1.1) EDV(Teich): 148 ml Ao Diam: 3.3 cm (2.0 - 3.7) AV Cusp: 1.8 cm (1.5 - 2.6) LA Diam: 3.2 cm (2.7 - 3.8) MV EXCURSION: 22.256 mm (> 18.000) MV EF SLOPE: 59 mm/s (70 - 150) EPSS: 0.3 cm MV E Roberto Carlos: 0.99 m/s MV DecT: 226 ms MV A Roberto Carlos: 0.99 m/s MV E/A Ratio: 1.00 RAP: 5.00 mmHg RVSP: 11.86 mmHg FINDINGS -------- Sinus rhythm. This was a technically difficult study with suboptimal views. The left ventricular size is normal. There is moderate concentric left ventricular hypertrophy. O verall left ventricular systolic function is normal with, an EF between 55 - 60 %. The diastolic fi lling pattern is normal for the age of the patient 10.52. Basal inferior LV wall motion is hypokine tic. The right ventricle is normal in size. The left atrial size is normal. Normal LA size by volume 22+/-6 ml/m2. The right atrial size is normal. Lumason used The aortic valve is trileaflet and appears structurally normal. The mitral valve is normal. Mild mitral regurgitation is present. The tricuspid valve appears structurally normal. Trace tricuspid regurgitation present. Right melanie tricular systolic pressure is normal at < 35 mmHg. There is no pulmonic regurgitation present. The aortic root size is normal. Normal inferior vena cava with normal inspiratory collapse consistent with estimated right atrial pre ssure of 5 mmHg. CONCLUSIONS -------- 1. Sinus rhythm. 2. This was a technically difficult study with suboptimal views. 3. The left ventricular size is normal. 4. There is moderate concentric left ventricular hypertrophy. 5. Overall left ventricular systolic function is normal with, an EF between 55 - 60 %. 6. The diastolic filling pattern is normal for the age of the patient 10.52 7. Basal inferior LV wall motion is hypokinetic. 8. The right ventricle is normal in size. 9. The left atrial size is normal. 10. Normal LA size by volume 22+/-6 ml/m2. 11. The right atrial size is normal. 12. Lumason used 13. The aortic valve is trileaflet and appears structurally normal. 14. The mitral valve is normal. 15. Mild mitral regurgitation is present. 16. The tricuspid valve appears structurally normal. 17. Trace tricuspid regurgitation present. 18. Right ventricular systolic pressure is normal at < 35 mmHg. 19. There is no pulmonic regurgitation present. 20. The aortic root size is normal. 21. Normal inferior vena cava with normal inspiratory collapse consistent with estimated right atrial pressure of 5 mmHg. DIESEL [employer] MECHANIC: Rani Pacheco RDCS
[2019-06-23 11:22] LABS: T4, Free (Free Thyroxine) 2.07 ng/dL (0.78-2.19)
--- NOTE | 2019-06-23 12:24 | P.CNNES ---
History of Present Illness Consult date: 06/23/19 Requesting physician: Kenya Hull Reason for Consult: TIA Chief complaint: Right-sided weakness x one hour History of Present Illness: This is a 68 RH female h/o HTN, DM and HL who woke up at 1130pm 06/23/19 and could not move the right side at all. The weakness resolved spontaneously after an hour. Did not have any accompanying sensory changes, facial numbness or droop, visual changes, diplopia, amaurosis, hearing changes, vertigo, dysarthria, dysphagia, aphasia, tremors, Lhermitte's, bowel/bladder incontinence or ataxia. Her speech did get slurred after she got Rocephin in the hospital and her throat swelled up. She also reported chest pressure, anxiety and hyperventilation and nausea. She is currently neurologically asymptomatic. She is on DAPT due to CAD s/p angioplasty of the RCA. She states that she had afib transiently around her DC, but she has never been on long-term anticoagulation. Patient states she also gets PACs and PVCs. Cardiology has been consulted. She cannot get regular MRI due to claustrophobia even with sedation. She was admitted to the ICU because of angioedema and urosepsis. Review of Systems I have performed a 14-point organ ROS with patient; pertinents are as per HPI. Past Medical History Past Medical History: Diabetes Mellitus, Deep Vein Thrombosis (DVT), Hyperlipidemia, Hypertension, Myocardial Infarction (DC), Osteoarthritis (OA), Pulmonary Embolus (PE), Renal Disease Additional Past Medical History / Comment(s): 10/24/14 Pt admitted s/p total R shoulder and injection R hand's middle finger. Other HX: NEURAPATHY CRISTOPHER HANDS AND FEET,MITRAL VALVE PROLAPSE,VARICOSE VEINS, STEROID INJECTIONS W/IN 3 MOS,KIDNEY STONES,RECENT TX FOR UA W/ BACTRIM. Colorectal fistula 2018 Last Myocardial Infarction Date:: 2006 History of Any Multi-Drug Resistant Organisms: None Reported Past Surgical History: Appendectomy, Cholecystectomy, Heart Catheterization With Stent, Hysterectomy, Tonsillectomy Additional Past Surgical History / Comment(s): 10/24/14 Total R shoulder and injection R middle finger. COLECTOMY R/T RUPTURED DIVERTICULI AND ABSCESS,LAB BAND 2007-FILL PRESENT TO SEE DR FREGOSO PRIOR TO OR TO HAVE REMOVED.,CARDIAC STENTS X2, REPAIR RT ACHILLES TENDON,CRISTOPHER CARPEL TUNNEL REPAIR,LT RADIAL HEAD PARTIALLY REMOVED W/ REPAIR,LAMINECTOMY L1-L4,FUSION L5-S1 Past Anesthesia/Blood Transfusion Reactions: No Reported Reaction Date of Last Stent Placement:: 2006 Past Psychological History: No Psychological Hx Reported Smoking Status: Never smoker Past Alcohol Use History: Occasional Past Drug Use History: None Reported - Past Family History Father Family Medical History: Deep Vein Thrombosis (DVT), Pulmonary Embolus Mother Family Medical History: Deep Vein Thrombosis (DVT), Pulmonary Embolus Medications and Allergies Home Medications Medication Instructions Recorded Confirmed Type Allopurinol [Zyloprim] 300 mg PO HS 10/13/14 06/23/19 History Atorvastatin [Lipitor] 40 mg PO Q48H 10/13/14 06/23/19 History Clopidogrel [Plavix] 75 mg PO DAILY 10/13/14 06/23/19 History Furosemide [Lasix] 40 mg PO DAILY 10/13/14 06/23/19 History Multivitamins, Thera [Multivitamin] 1 tab PO DAILY 10/13/14 06/23/19 History Pantoprazole Sodium [Protonix] 40 mg PO BID 10/13/14 06/23/19 History Cholecalciferol [Vitamin D3] 5,000 unit PO DAILY 10/24/14 06/23/19 History Pseudoephedrine HCl [Sudafed] 30 mg PO Q4HR PRN 10/24/14 06/23/19 History Acetaminophen [Tylenol Arthritis] 650 mg PO DAILY 06/23/19 06/23/19 History Aspirin EC [Ecotrin Low Dose] 81 mg PO DAILY 06/23/19 06/23/19 History Atenolol [Tenormin] 25 mg PO DAILY 06/23/19 06/23/19 History Atorvastatin [Lipitor] 80 mg PO Q48H 06/23/19 06/23/19 History Hydrocodone/Acetaminophen [Vicodin 1 tab PO TID PRN 06/23/19 06/23/19 History 5-300 mg Tablet] Metolazone [Zaroxolyn] 2.5 mg PO TU 06/23/19 06/23/19 History Allergies Allergy/AdvReac Type Severity Reaction Status Date / Time ibuprofen [From Motrin] Allergy KIDNEY Verified 06/23/19 08:08 FAILURE Iodinated Contrast- Oral and Allergy Rash/Hives Verified 06/23/19 08:08 IV Dye [Iodinated Contrast Media - IV Dye] isoniazid Allergy RASH,WT Verified 06/23/19 08:08 GAIN,ELEV B/P,ELEV BLOOD SUGAR morphine Allergy Dyspnea Verified 06/23/19 08:08 venom-honey bee Allergy SWELLING, Verified 06/23/19 08:08 [bee venom (honey bee)] HIVES meperidine HCl [From Demerol] AdvReac Nausea & Verified 06/23/19 08:08 Vomiting SHRIMP Allergy Rash/Hives Uncoded 10/24/14 10:58 VACCINE PRESERVATIVES Allergy HIVES Uncoded 10/24/14 10:58 Physical Examination - Vital Signs Vital Signs: Vital Signs Temp Pulse Resp BP Pulse Ox 06/23/19 11:00 84 14 104/55 98 06/23/19 10:30 80 14 104/53 98 06/23/19 10:00 79 15 106/59 96 06/23/19 09:30 78 15 99/55 96 06/23/19 09:00 81 22 93/53 97 06/23/19 08:30 82 25 H 87/58 95 06/23/19 08:01 97.6 F 84 18 77/54 96 06/23/19 07:30 87 20 92/57 97 06/23/19 05:52 99.4 F 97 20 98/52 97 06/23/19 05:15 104 H 87/49 97 06/23/19 05:10 105 H 82/68 98 06/23/19 05:05 106 H 82/68 98 06/23/19 04:53 98 20 06/23/19 04:40 99 20 06/23/19 03:15 100.1 F H 96 20 97/48 95 06/23/19 02:15 101.3 F H 98 22 93/50 95 06/23/19 01:15 105 H 24 109/78 95 06/23/19 01:12 103.1 F H 106 H 20 120/70 95 Intake and Output 06/22/19 06/23/19 06/23/19 22:59 06:59 14:59 Intake Total 478 Output Total 805 Balance -327 Intake: IV 478 Levofloxacin 750Mg-D5w 100 Pmx 750 mg In Dextrose/ Water 1 150ml.bag @ 100 mls/hr IVPB Q48H [facility] Rx#: [id number] Sodium Chloride 0.9% 1, 378 000 ml @ 126 mls/hr IV . [id number] [facility] Rx#:[id number] Output: Urine 805 Other: Voiding Method Indwelling Catheter Weight 110.677 kg Gen NAD Pleasant and cooperative HEENT NCAT Sclera without icterus O/P clear Neck Supple No carotid bruit Cor RRR no m/r/g Lungs CTAB Abd Soft NTND +BS Ext Warm to touch No edema Neuro MS A+Ox4 Normal fluency Able to follow all commands CN PERRL VFF no APD EOMI no nystagmus or RICHARD No facial asymmetry Masseter's symmetric Hearing intact to normal voice bilaterally Speech not dysarthric Equal elevation of palate Tongue midline Sym shrug and SCM bilaterally Motor Normal bulk/tone No pronator drift She has a mild RLE drift No tremors Strength 5/5 sym throughout Sens Intact to LT x4 No neglect or extinction Coord No dysmetria on FTN bilaterally DTRs 2+/4 in BUE Tr to 1+/4 in BLE Toes downgoing bilaterally No clonus at achilles Gait Deferred NIHSS 6b=1 total 1 Results - Laboratory Findings CBC and BMP: 06/23/19 01:33 06/23/19 01:33 Abnormal Lab Findings: Abnormal Labs 06/23/19 06/23/19 06/23/19 01:33 01:33 01:33 RDW 18.8 H Neutrophils # 8.4 H Lymphocytes # 0.5 L APTT BUN 39 H Creatinine 1.76 H Glucose 158 H POC Glucose (mg/dL) Plasma Lactic Acid Steve 3.0 H* Troponin I HDL Cholesterol TSH Urine Appearance Urine Protein Urine Glucose (UA) Urine Blood Urine Nitrite Ur Leukocyte Esterase Urine RBC Urine WBC Urine WBC Clumps Ur Squamous Epith Cells Urine Bacteria 06/23/19 06/23/19 06/23/19 01:33 01:33 03:40 RDW Neutrophils # Lymphocytes # APTT 31.3 H BUN Creatinine Glucose POC Glucose (mg/dL) 152 H Plasma Lactic Acid Steve Troponin I HDL Cholesterol TSH Urine Appearance Cloudy H Urine Protein 1+ H Urine Glucose (UA) 4+ H Urine Blood Moderate H Urine Nitrite Positive H Ur Leukocyte Esterase Large H Urine RBC 39 H Urine WBC >182 H Urine WBC Clumps Many H Ur Squamous Epith Cells 8 H Urine Bacteria Occasional H 06/23/19 06/23/19 06/23/19 05:41 05:41 05:41 RDW Neutrophils # Lymphocytes # APTT BUN Creatinine Glucose POC Glucose (mg/dL) Plasma Lactic Acid Steve 2.6 H* Troponin I 0.112 H* HDL Cholesterol 36 L TSH 0.271 L Urine Appearance Urine Protein Urine Glucose (UA) Urine Blood Urine Nitrite Ur Leukocyte Esterase Urine RBC Urine WBC Urine WBC Clumps Ur Squamous Epith Cells Urine Bacteria 06/23/19 06/23/19 05:54 06:44 RDW Neutrophils # Lymphocytes # APTT BUN Creatinine Glucose POC Glucose (mg/dL) 230 H 264 H Plasma Lactic Acid Steve Troponin I HDL Cholesterol TSH Urine Appearance Urine Protein Urine Glucose (UA) Urine Blood Urine Nitrite Ur Leukocyte Esterase Urine RBC Urine WBC Urine WBC Clumps Ur Squamous Epith Cells Urine Bacteria - Diagnostic Findings Additional findings: CT Head wo cont 06/23/19. No ICH. Nil acute. Carotid duplex 06/23/19. Mild degree of lind scale atheromatous plaquing with no hemodynamically significant stenosis in the anterior circulation. Both vertebral arteries demonstrate antegrade flow. Arrhythmias noted on EKG. TTE 06/23/19. Technically difficult study. LV size normal. Moderate concentric LVH. EF 55-60%. Normal LA size. Assessment and Plan Assessment: TIA. Could very well be small vessel disease given copious vascular risk factors. Less likely proximal embolic phenomenon. Plan: -CT Head, carotid duplex and TTE results d/w patient in detail -Cannot undergo MRI at our facility -Already maxed on medical management with DAPT and statin therapy -LDL 46 at goal -TSH low but free T4 normal. B12 also >400 -Will defer to cardiology with she may benefit from cardiac event monitor outpatient to r/o PAF. They have been consulted -Medical treatment for urosepsis -PT/OT/SP per protocol -Stroke education given to patient -DVT prophylaxis -d/w patient in detail. All questions answered. -No further inpatient neuro recs at this time. Will revisit patient prn. Please call with new ?. Thank you again for this consultation. Time with Patient: Greater than 30 (Time spent in direct patient care, greater than 50% of which was spent in [id number] counseling and coordination of care: 70 minutes)
[2019-06-23] MEDS: INSULIN ASPART (NovoLOG) 100 UNIT/ML VIAL SQ SCH ×4 (12:27→20:54)
[2019-06-23] MEDS: methylPREDNISolone SOD SUCCI 125 MG/2 ML VIAL IV SCH ×2 (12:27→17:32)
[2019-06-23 12:33] LABS: Glucose,Whole Blood 304 mg/dL (75-99)
--- NOTE | 2019-06-23 12:38 | CONS ---
CONSULTATION PULMONARY/CRITICAL CARE CONSULTATION: DATE OF CONSULTATION: June 23, 2019. This is a 68-year-old female who was seen in the emergency room. She was brought in by EMS. She apparently has a history of colovesical fistula and she has recurrent urinary tract infections with fever. The patient's temperature was quite elevated and the family called EMS who brought her into the emergency room to be evaluated. She apparently complained of shaking chills. Also, she had pain throughout her body. She was very short of breath and diaphoretic. Her temperature apparently was 103 upon arrival. She was to see myself or Dr. Fonseca this week in the office for preop clearance. She was apparently going to have this colovesical fistula repaired surgically by a physician at [facility]. She had been on numerous antibiotics in the past including Keflex, Cipro, Levaquin, Bactrim, and Macrobid. In the emergency room, Dr. Rockwell gave her ceftriaxone or Rocephin. She apparently immediately had an allergic reaction to it including significant angioedema and tongue swelling. She was also complaining about being diaphoretic and short of breath. She received a number of different things there including subcu adrenaline, IV Solu-Medrol, IV Benadryl, and other medications to treat the angioedema. I was called by Dr. Rockwell because the patient was asked to be placed in the ICU by the primary service for monitoring. Currently, she is feeling a lot better. She is on O2 at 5 L by nasal cannula. She is getting saline IV at 125 mL an hour. Her primary doctor is Dr. Chavis. She sees a whole host of doctors. MEDICAL HISTORY: Her medical history includes, among other things, hypertension, diabetes, pulmonary embolism, DVT, CAD with stent placements, and neuropathy. She also has a history of vocal cord paralysis. She denies any tobacco use. HOME MEDICATIONS: Home medications include Zyloprim, aspirin, atenolol, Lipitor, Plavix, Lasix, Lopid, [place], Claritin, losartan HCTZ, Zaroxolyn, multivitamins, Protonix, Tylenol, vitamin D3, and Sudafed. She is also previously on those antibiotics as I mentioned. ALLERGIES: Allergies include IBUPROFEN, IVP DYE, INH, MORPHINE, BEE STINGS, MEPERIDINE, SHRIMP, CERTAIN VACCINE PREPARATIONS and now obviously CEPHALOSPORINS. She had taken Keflex in the past without a reaction. MEDICAL HISTORY: Her medical history is extensive and includes diabetes mellitus, DVT, hyperlipidemia, hypertension, myocardial infarction, DJD, pulmonary embolism, and chronic kidney disease. Other medical history includes neuropathy, kidney stones, and colovesical fistula. SURGICAL HISTORY: Surgical history is positive for appendectomy, cholecystectomy, heart catheterization with stent placement, hysterectomy, tonsillectomy, right shoulder injections as well as finger injections, lap band surgery, colectomy, Achilles tendon repair, laminectomy, and various lumbar fusion surgeries. SOCIAL HISTORY: Social history is negative for tobacco use. Denies any illicit drug use. Only occasional alcohol use. FAMILY HISTORY: Family history is significant for father with DVT and pulmonary embolism and mother with DVT and pulmonary embolism. She likely has a chronic hypercoagulable state. REVIEW OF SYSTEMS: CONSTITUTIONAL: Fever, chills. NEUROLOGIC: Negative. HEENT: Negative. CARDIOVASCULAR: Negative. PULMONARY: Shortness of breath, chest tightness. GI: Negative. : Negative. RHEUMATOLOGIC: Negative. IMMUNOLOGIC: Negative. ENDOCRINOLOGIC: Negative. DERMATOLOGIC: Negative. PHYSICAL EXAMINATION: VITAL SIGNS: Current vital signs are reviewed. Her temperature is 99.4, heart rate 97, respiratory rate 20, blood pressure 98/52, mean 67 and 5 L saturation is 97%. Her admission temperature was 103.1. GENERAL: She currently appears in no acute distress. She is a bit diaphoretic. Nasal O2 in place. HEENT: Examination is grossly unremarkable. Nasal O2 noted. Mucous membranes are moist. NECK: Supple. Full range of motion. No adenopathy, thyromegaly or neck vein distention. CARDIOVASCULAR: Examination reveals regular rhythm and rate. Heart rate 97. S1, S2 normal. No S3, S4, or murmur. LUNGS: Reveal mostly clear breath sounds. No wheezes, rhonchi, or crackles. ABDOMEN: Soft, but obese. Bowel sounds are heard. EXTREMITIES: Are intact. No cyanosis, clubbing, or edema. SKIN: Is moist, diaphoretic. No rash. NEUROLOGIC: Examination is brief but nonfocal. LAB DATA: Lab data is reviewed. White count 9.4, hemoglobin 12.7, hematocrit 39.3, platelet count 208,000. PT, INR, PTT all normal. Sodium, potassium, chloride, CO2 normal. Anion gap is normal. BUN and creatinine were 39 and 1.76. Lactic acid 2.6. TSH 0.271. Urine shows a bladder infection. There is moderate blood, nitrite positive, leukocyte esterase large positive, 39 RBCs, greater than 182 WBCs, many white blood cell clumps, occasional bacteria. A brain CT was done. It showed no acute abnormality. ASSESSMENT: 1. Acute anaphylaxis with angioedema secondary to administration of ceftriaxone/Rocephin for urinary tract infection. 2. Chronic urinary tract infections secondary to colovesical/colorectal fistula, with anticipated repair in the near future. 3. History of deep venous thrombosis and pulmonary embolism, with a strong family history of same, rule out hypercoagulable state. 4. Obesity. 5. Diabetes mellitus. 6. Hyperlipidemia. 7. History of hypertension. 8. Myocardial infarction. 9. Degenerative joint disease. 10.Chronic kidney disease. 11.Mitral valve prolapse. 12.History of varicose veins. 13.History of kidney stones. PLAN: The patient is doing much better. She has received a number of medications including fluids, steroid, H1 and H2 histamine antagonist and also adrenaline. We will observe the patient here in the unit. Likely discharged out of the unit later today or tomorrow. We will make sure that it is noted on her medical record that she is not allergic to CEPHALOSPORIN ANTIBIOTIC. I explained that to her. Hemodynamically, she is stable. She is getting O2 and saline. We will continue to watch and follow closely. MMCRISSL / KWAKUN: [id number] /
--- NOTE | 2019-06-23 14:42 | P.PN ---
Progress Note - Text Progress Note Date: 06/23/19 Patient was seen. Please refer to H&P for full documentation. Patient initially seen for abdominal pain/UTI symptoms, weakness of her right side and for chest pain. Patient states that she has complete resolution of her right- sided weakness along with her chest pain. She does complain of chronic lower abdominal pain along with difficulty with urinating. CT brain was negative.echocardiogram showed EF 55-60% with moderate LVH and hypokinetic wall motion. Carotid ultrasound showed plaquing without significant stenosis. MRI brain unable to be done due to claustrophobia. Neurology recommends no further workup. Initial troponin was less than 0.013 but subsequent troponin was 0.112. Continue to trend troponin to rule out ACS. This could be related to sepsis and cardiology has been consulted. Otherwise, patient is started on levofloxacin for concerns of UTI causing sepsis. Her blood pressures maintained with IVF. She is pending clinical improvement.
[2019-06-23 15:11] LABS: Creatine Kinase MB 1.7 ng/mL (0.0-2.4)
[2019-06-23 15:12] LABS: Troponin I 0.06 ng/mL (0.000-0.034)
[2019-06-23 16:50] LABS: Glucose,Whole Blood 285 mg/dL (75-99)
--- NOTE | 2019-06-23 19:05 | CONS ---
CONSULTATION Mrs. You is a 68-year-old female who presented to the emergency room with a febrile episode. She has a known history of coronary artery disease. She is followed by Dr. Keli Solo and underwent stenting of the right coronary artery in 2006. She underwent repeat cardiac catheterization in 2010 that showed no evidence of progression of disease. She had myocardial perfusion imaging obtained on June 13, 2019, that showed no evidence of ischemia. She has a history of colovesical fistula and is scheduled to undergo surgical evaluation at [facility]. Yesterday she became quite febrile, dyspneic, dizzy and nauseated and she had an episode of chest discomfort. She came into the emergency room, where she received a dose of Rocephin that caused angioedema with swelling of her tongue, difficulty swallowing. That has resolved. At home she became quite anxious and had a feeling of weakness in the right upper and subsequently lower extremities, but that has resolved completely at this time. She had no use of nitroglycerin prior to this episode. Her breathing has been stable without any change. She has mild chronic edema. No clear PND or orthopnea. No dizziness, palpitation or syncope. Her coronary risk factors are positive for history of hypertension and hyperlipidemia. Her medications are home are: 1. Aspirin once a day. 2. Tenormin 25 mg daily. 3. Lipitor 40 mg alternating with 80. 4. Plavix 75 mg daily. 5. Zaroxolyn on a p.r.n. basis. 6. Protonix. 7. Allopurinol. REVIEW OF SYSTEMS: RESPIRATORY SYSTEM: She has no recent wheezing, no cough, no history of obstructive lung disease. GI SYSTEM: No recent GI bleeding. She has the fistula, as noted. She had nausea yesterday. SYSTEM: She had recurrent UTI. Has received Keflex once for 2 days without any reaction. NERVOUS SYSTEM: No stroke or seizure. PHYSICAL EXAMINATION: A 68-year-old female, alert, oriented, in no apparent distress, lying supine. Blood pressure 110/59 with a heart rate in the 80s. HEAD: Normocephalic. EYES: Sclerae anicteric. NECK: Good carotid upstroke. No bruit. No jugular venous distention. LUNGS: Clear to auscultation. HEART: Regular rate and rhythm. S1, S2. No S3. Systolic ejection murmur heard at the base, early peaking. No diastolic murmur. No rub. ABDOMEN: Soft, nontender. Positive bowel sounds. No organomegaly. Obese. EXTREMITIES: No edema. LAB DATA: Lactic acid of 3. Troponin less than 0.012 and 0.112. Cholesterol 105, LDL of 36. BUN and creatinine of 39 and 1.76. Hemoglobin of 12.7. INR of 1.0. EKG revealed a sinus mechanism, rate of 105, right bundle branch block. No acute changes. Echocardiogram revealed a preserved systolic function with mild inferobasal hypokinesis. There was no evidence of pulmonary hypertension. She underwent a carotid duplex scan that showed no evidence of high-grade stenosis. She underwent CT scan of the head that was unremarkable. IMPRESSION: 1. Urosepsis, being treated with evidence of a colovesical, colorectal fistula, being evaluated to undergo surgical intervention at [facility]. 2. Angioedema and anaphylaxis reaction to Rocephin. 3. History of coronary artery disease with prior percutaneous revascularization. The troponin elevation most likely is related to her sepsis. 4. History of hyperlipidemia. 5. Hypertension. 6. History of arthritic pain. 7. Chronic kidney disease. RECOMMENDATIONS: From the cardiac standpoint, I do not believe that the troponin elevation represents an acute ischemic event. Will monitor her symptoms. Continue present therapy. If she is stable, I would expect we should be able to stop the Plavix in preparation for surgery. Otherwise, will continue the rest of her medical regimen. Depending on her progress, further recommendations will be made. Thank you for this consult. Will follow with you. MMODL / IJN: [id number] /
[2019-06-23] MEDS: ATORVASTATIN 40 MG TAB PO SCH (20:53)
[2019-06-23] MEDS: LACTOBACILLUS ACIDOPH & BULGAR 1 EACH PACKET PO SCH (20:53)
[2019-06-23 20:55] LABS: Glucose,Whole Blood 267 mg/dL (75-99)
[2019-06-23] MEDS: HYDROcodone/APAP 7.5-325MG 1 EACH TAB PO PRN (22:20)
[2019-06-24] MEDS: methylPREDNISolone SOD SUCCI 125 MG/2 ML VIAL IV SCH ×3 (01:19→16:15)
[2019-06-24 01:47] LABS: Hemoglobin A1C 7.1 % (4.0-6.0)
[2019-06-24 05:54] LABS: Anisocytosis Slight; HCT 30.8 % (34.0-46.0); Hypochromasia Slight; MCH 28.3 pg (25.0-35.0); MCHC 31.6 g/dL (31.0-37.0); MCV 89.5 fL (80.0-100.0); Mean Platelet Volume 6.7; Platelet Count 233 k/uL (150-450); RBC 3.44 m/uL (3.80-5.40); RDW 17.8 % (11.5-15.5); WBC 16.2 k/uL (3.8-10.6)
[2019-06-24 06:05] LABS: Calcium 8.6 mg/dL (8.4-10.2); Potassium 3.5 mmol/L (3.5-5.1)
[2019-06-24 06:26] LABS: HGB 9.8 gm/dL (11.4-16.0)
[2019-06-24] MEDS ORDERED: Potassium Replacement Protocol 1 EACH MISC MISCELLANE PRN (06:46)
[2019-06-24] MEDS: INSULIN ASPART (NovoLOG) 100 UNIT/ML VIAL SQ SCH ×9 (07:16→21:04)
[2019-06-24] MEDS: POTASSIUM CHLORIDE ER 20 MEQ TAB.ER PO SCH ×2 (07:17→07:59)
[2019-06-24] MEDS: SODIUM CHLORIDE 0.9% 1,000 ML IV SCH (07:18)
[2019-06-24 07:21] LABS: Glucose,Whole Blood 215 mg/dL (75-99)
[2019-06-24] MEDS: CLOPIDOGREL 75 MG TAB PO SCH (07:59)
[2019-06-24] MEDS: PANTOPRAZOLE 40 MG TABLET PO SCH (07:59)
[2019-06-24] MEDS: LACTOBACILLUS ACIDOPH & BULGAR 1 EACH PACKET PO SCH ×2 (07:59→21:04)
[2019-06-24] MEDS: ASPIRIN 81 MG PO SCH (07:59)
[2019-06-24] MEDS: LEVOFLOXACIN 750 MG TAB PO SCH (08:00)
[2019-06-24] MEDS: ATENOLOL 25 MG TAB PO SCH (08:01)
--- NOTE | 2019-06-24 08:50 | PN ---
PROGRESS NOTE Mrs. You is a 68-year-old female with known history of coronary artery disease who presented with febrile episode related to urinary tract infection as well as a had an angioedema reaction to Rocephin. She had minimal troponin elevation. She is feeling well this morning. Her breathing is stable. She is denying any chest pain. No dizziness. No palpitation. She denies any nausea. Hemodynamically, she has been stable. She has issues with her swallowing and has swelling of her tongue. She had an echocardiogram revealed preserved systolic function with inferobasal hypokinesis. She continues to be at this time on aspirin, atenolol 25 mg daily, Lipitor 40 mg daily, Plavix 75 mg daily, insulin, and methyl prednisolone. PHYSICAL EXAMINATION: Blood pressure 115/60 with a heart rate in the 80s. LUNGS: Clear regular rhythm S1, S2. No S3. No rub. ABDOMEN: Soft, nontender. EXTREMITIES: No significant edema. LAB DATA: Revealed BUN and creatinine 35 and 1.14, improved compared with yesterday. Her troponin is 0.060. IMPRESSION: 1. Urinary tract infection with known fistula being being evaluated for surgical intervention at [facility] 2. Minimal troponin elevation most likely related to the infectious process and consistent with a type 2 event. 3. History of coronary artery disease. 4. Angioedema. 5. Hyperlipidemia. RECOMMENDATION: I will stop the Plavix at this time. Continue rest of the medical regimen. The patient is stable to be transferred outside the ICU. Increase her level activity and hopefully if she continues to improve, being able to be discharged home soon. MMODL / IJN: [id number] /
--- NOTE | 2019-06-24 09:44 | PN ---
PROGRESS NOTE PULMONARY/CRITICAL CARE PROGRESS NOTE: DATE OF SERVICE: June 24, 2019 This is a 68-year-old female who was seen yesterday in consultation. She presented to the emergency room with what was thought to be a urinary tract infection. She has a history of a colovesical fistula which she is going to have repaired at [facility]. Anyway, she came in with temperature elevation and signs and symptoms of urinary tract infection. She had been on a number of different antibiotics in the past including Levaquin, Cipro, Macrobid, Keflex, Bactrim, etc. for her urinary tract infections. She had taken cephalosporins apparently in the past as well without a problem. The ER doctor gave her Rocephin and she apparently had an allergic reaction to that and developed some difficulty breathing and some angioedema with tongue swelling. She received adrenaline, IV Solu-Medrol, diphenhydramine hydrochloride and also some H2 histamine antagonist. She was admitted to the ICU for further monitoring. Currently, she is on room air. She is getting a saline IV at 126 mL an hour. That can be pivel. We are going to switch her Levaquin from IV to p.o. She will be transferred out to the general medical floor. The patient's primary doctor is Dr. Chavis. She apparently is going to see either myself or Dr. Fonseca in the office for preop clearance. PHYSICAL EXAMINATION: VITAL SIGNS: Current vital signs include temperature 97.9, heart rate 80, respiratory rate 16, blood pressure 115/63, mean 80, saturations are 94% on room air. GENERAL: Appears in no acute distress. HEENT: Examination is grossly unremarkable. Mucous membranes are moist. No oral lesions. NECK: Supple. Full range of motion. No adenopathy. CARDIOVASCULAR: Examination reveals regular rhythm rate. Heart rate 80. S1, S2 normal. No murmur. LUNGS: Clear. Breath sounds equal. ABDOMEN: Soft. EXTREMITIES: Are intact. No edema. SKIN: Without rash. NEUROLOGIC: Examination is nonfocal. We are going to discontinue the patient's Ledezma catheter. We are going to switch her Levaquin IV to p.o. LAB DATA: Lab data is reviewed. White count 16.2, hemoglobin 9.8, hematocrit 30.8, platelet count 233,000. Sodium, potassium,, chloride, CO2 all normal. Anion gap of 10, which is normal. BUN and creatinine were 35 and 1.14. Microbiologic studies thus far are negative. Her urine is currently pending. MEDICATIONS: Her medications are reviewed. ASSESSMENT: 1. Anaphylaxis/angioedema secondary to administration of ceftriaxone. 2. 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 3. History of deep venous thrombosis and pulmonary embolism with a strong family history of same, rule out hypercoagulable state. 4. Obesity. 5. Diabetes mellitus. 6. Hyperlipidemia. 7. History of hypertension. 8. Myocardial infarction. 9. Degenerative joint disease. 10.Chronic kidney disease. 11.Mitral valve prolapse. 12.History of varicose veins. 13.History of kidney stones. PLAN: The patient will have her Ledezma catheter removed. We will pivel her IV. She does not need the extra fluids. Her IV Levaquin can be switched to p.o. because of the bioavailability of the Levaquin. She can be transferred to the general medical floor. I will see only as needed. She will see either myself or Dr. Fonseca in the office in the near future for preop clearance. MMODL / IJN: [id number] /
[2019-06-24 11:21] VITALS: BMI 42.0
[2019-06-24 12:15] LABS: Glucose,Whole Blood 343 mg/dL (75-99)
--- NOTE | 2019-06-24 13:45 | P.PN ---
Subjective Progress Note Date: 06/24/19 Principal diagnosis: Angioedema, UTI sepsis Patient was seen and examined. No acute events overnight. Patient reports considerable improvement in her symptoms since admission. She no longer has right-sided weakness. She also complains of improvement in the swelling of her throat. She denies any shortness of breath or difficulty swallowing. She denies any chest pain or palpitations. No nausea or vomiting. No fever or chills. Concerned about her blood sugars. Objective - Vital Signs Vital signs: Vital Signs Temp 98.1 F 06/24/19 12:00 Pulse 66 06/24/19 12:00 Resp 17 06/24/19 12:00 BP 110/56 06/24/19 12:00 Pulse Ox 96 06/24/19 12:00 Intake & Output 06/23/19 06/24/19 06/24/19 18:59 06:59 18:59 Intake Total 1860 1712 226 Output Total 1805 1425 215 Balance 55 287 11 Weight 125.6 kg 125.6 kg Intake: IV 1360 1512 126 Levofloxacin 750Mg-D5w 100 Pmx 750 mg In Dextrose/ Water 1 150ml.bag @ 100 mls/hr IVPB Q48H [place] Rx#: [id number] Sodium Chloride 0.9% 1, 1260 1512 126 000 ml @ 126 mls/hr IV . Q7H57M [place] Rx#:[id number] Oral 500 200 100 Output: Urine 1805 1425 215 Other: Voiding Method Indwelling Catheter Indwelling Catheter Indwelling Catheter # Voids 1 - Exam General: [non toxic], [no distress], [appears at stated age] Derm: [warm], [dry] Head: [atraumatic], [normocephalic], [symmetric] Eyes: [EOMI], [no lid lag], [anicteric sclera] Mouth: [no lip lesion], [mucus membranes moist] Cardiovascular: [S1S2 reg], [no murmur], [positive posterior tibial pulse bilateral], Lungs: [CTA bilateral], [no rhonchi, no rales] , [no accessory muscle use] Abdominal: [soft], [ nontender to palpation], [no guarding], [no appreciable organomegaly] Ext: [no gross muscle atrophy], [1+ lower extremity edema], [no contractures] Neuro: [ CN II-XI grossly intact, drooping of left eye but due to previous surgery], [no focal neuro deficits] Psych: [Alert], [oriented], [appropriate affect] - Labs CBC & Chem 7: 06/24/19 04:41 06/24/19 04:41 Labs: Abnormal Lab Results - Last 24 Hours (Table) 06/23/19 06/23/19 06/23/19 Range/Units 14:21 14:21 16:39 WBC (3.8-10.6) k/uL RBC (3.80-5.40) m/uL Hgb (11.4-16.0) gm/dL Hct (34.0-46.0) % RDW (11.5-15.5) % BUN (7-17) mg/dL Creatinine (0.52-1.04) mg/dL Glucose (74-99) mg/dL POC Glucose (mg/dL) 285 H (75-99) mg/dL Hemoglobin A1c 7.1 H (4.0-6.0) % Troponin I 0.060 H* (0.000-0.034) ng/mL 06/23/19 06/24/19 06/24/19 Range/Units 20:44 04:41 04:41 WBC 16.2 H (3.8-10.6) k/uL RBC 3.44 L (3.80-5.40) m/uL Hgb 9.8 L D (11.4-16.0) gm/dL Hct 30.8 L (34.0-46.0) % RDW 17.8 H (11.5-15.5) % BUN 35 H (7-17) mg/dL Creatinine 1.14 H (0.52-1.04) mg/dL Glucose 224 H (74-99) mg/dL POC Glucose (mg/dL) 267 H (75-99) mg/dL Hemoglobin A1c (4.0-6.0) % Troponin I (0.000-0.034) ng/mL 06/24/19 06/24/19 Range/Units 07:09 12:03 WBC (3.8-10.6) k/uL RBC (3.80-5.40) m/uL Hgb (11.4-16.0) gm/dL Hct (34.0-46.0) % RDW (11.5-15.5) % BUN (7-17) mg/dL Creatinine (0.52-1.04) mg/dL Glucose (74-99) mg/dL POC Glucose (mg/dL) 215 H 343 H (75-99) mg/dL Hemoglobin A1c (4.0-6.0) % Troponin I (0.000-0.034) ng/mL Microbiology - Last 24 Hours (Table) 06/23/19 01:55 Blood Culture - Preliminary Blood No Growth after 24 hours 06/23/19 01:33 Urine Culture - Preliminary Urine,Voided Assessment and Plan Assessment: Assessment and Plan Angioedema Sepsis secondary to UTI related to a colovesicul fistula Troponin elevation likely related to sepsis, rule out ACS Right-sided weakness, resolved, rule out CVA Hypertension Diabetes mellitus with hyperglycemia likely related to steroid use Hypothyroidism Chronic kidney disease stage III Resolving. Plans: Discontinue SPRING inhibitor on discharge. Solu-Medrol transitioned to prednisone. Continue to monitor. Patient initially met sepsis criteria. Heart rate greater than 100. Leukocytosis. Positive source of infection. Lactic acid 3.0-1.8. UA showing positive nitrite, large leukocyte esterase. Plans: Continue levofloxacin. Tylenol as needed for fever. IVF discontinued, encourage hydration by mouth. Follow final blood cultures and urine cultures. Troponin less than 0.012, 0.112, 0.06 with EKG showing sinus tachycardia RBBB. Cardiology consulted, recommends echocardiogram. Echocardiogram shows EF 55-60% with moderate concentric LVH and basal inferior left wall hypokinesis. Plans: Telemetry monitoring. Continue beta omkar. Continue aspirin, will start statin when stable. Plavix discontinued by cardiology. Will follow cardiology recommendations for further cardiac workup. CT brain negative. Echocardiogram shows EF 55-60% with moderate concentric LVH and basal inferior left wall hypokinesis. Carotid ultrasound shows no significant stenosis. Plans: We'll follow neurology recommendations. Unable to do MRI here due to claustrophobia. Neurology recommends no further workup. BP 110/56. Plans: Continue atenolol. Monitor vitals, adjust medications as necessary. [id number] glucose 343. Plans: Insulin sliding scale. Add NovoLog 5 units 3 times a day. Regular Accu-Cheks. Hypoglycemic precautions. TSH 0.271, free T4 within normal limits. Subclinical hyperthyroidism. Plans: Repeat TSH in 3 weeks. Creatinine 1.14. Stable. Plans: Avoid nephrotoxins. Daily BMP. [Patient has been considerably improving since admission. Cultures are pending. Continue IV antibiotics. Angioedema resolving. Cardiology evaluated patient, appears no further workup. Likely DC in 1-2 days.]
[2019-06-24 14:16] LABS: Anisocytosis Slight; HCT 34.8 % (34.0-46.0); HGB 10.6 gm/dL (11.4-16.0); Hypochromasia Moderate; MCH 28.5 pg (25.0-35.0); MCHC 30.6 g/dL (31.0-37.0); Mean Platelet Volume 6.8; Platelet Count 252 k/uL (150-450); RBC 3.74 m/uL (3.80-5.40); RDW 17.8 % (11.5-15.5); WBC 20.7 k/uL (3.8-10.6)
[2019-06-24] MEDS: HYDROcodone/APAP 7.5-325MG 1 EACH TAB PO PRN ×2 (14:37→22:11)
[2019-06-24 17:16] LABS: Glucose,Whole Blood 233 mg/dL (75-99)
[2019-06-24 20:19] LABS: Glucose,Whole Blood 279 mg/dL (75-99)
[2019-06-24] MEDS: ATORVASTATIN 40 MG TAB PO SCH (21:03)
[2019-06-24] MEDS ORDERED: BACLOFEN 10 MG TAB PO SCH (22:00)
[2019-06-24] MEDS ORDERED: ALLOPURINOL 300 MG TAB PO SCH (22:00)
[2019-06-24] MEDS: GABAPENTIN 300 MG CAP PO SCH (22:15)
[2019-06-25] MEDS: HYDROcodone/APAP 7.5-325MG 1 EACH TAB PO PRN (05:21)
[2019-06-25] MEDS ORDERED: LEVOTHYROXINE 100 MCG TAB PO SCH (06:30)
[2019-06-25 06:33] VITALS: BP 124/55; PULSE 68; RESP 16; TEMP 98
[2019-06-25 07:24] LABS: Glucose,Whole Blood 176 mg/dL (75-99)
[2019-06-25 07:42] LABS: Anisocytosis Slight; HGB 10.1 gm/dL (11.4-16.0); Hypochromasia Slight; MCH 28.8 pg (25.0-35.0); MCHC 32.6 g/dL (31.0-37.0); MCV 88.4 fL (80.0-100.0); Mean Platelet Volume 6.9; Platelet Count 238 k/uL (150-450); RBC 3.51 m/uL (3.80-5.40); RDW 17.9 % (11.5-15.5); WBC 17.2 k/uL (3.8-10.6)
[2019-06-25] MEDS: LACTOBACILLUS ACIDOPH & BULGAR 1 EACH PACKET PO SCH (07:51)
[2019-06-25] MEDS: LEVOFLOXACIN 750 MG TAB PO SCH (07:52)
[2019-06-25] MEDS: ASPIRIN 81 MG PO SCH (07:52)
[2019-06-25] MEDS: PANTOPRAZOLE 40 MG TABLET PO SCH (07:52)
[2019-06-25] MEDS: INSULIN ASPART (NovoLOG) 100 UNIT/ML VIAL SQ SCH ×6 (07:53→12:36)
[2019-06-25] MEDS: ATENOLOL 25 MG TAB PO SCH (07:53)
[2019-06-25 07:55] LABS: Calcium 8.9 mg/dL (8.4-10.2); Potassium 3.7 mmol/L (3.5-5.1)
[2019-06-25] MEDS: GABAPENTIN 300 MG CAP PO SCH (07:56)
[2019-06-25 08:32] LABS: Troponin I 0.049 ng/mL (0.000-0.034)
[2019-06-25] MEDS ORDERED: predniSONE 20 MG TAB PO SCH ×2 (09:00)
[2019-06-25] MEDS ORDERED: NON-FORMULARY DRUG (Aspirin Ec 81 MG) PO SCH (09:00)
[2019-06-25 11:53] LABS: Glucose,Whole Blood 219 mg/dL (75-99)
--- NOTE | 2019-06-25 12:03 | PN ---
PROGRESS NOTE Mrs You is doing well this morning. She is a lady with a history of known colovesical fistula, has chronic UTI, came into the hospital with fever, chills and when given Rocephin had some angioedema type picture, but this has resolved. She is now on Levaquin, is doing much better. Tolerating the current medical regimen well, has no chest pain. Vitals are stable. S1-S2 heard normally. Lungs are clear. Heart sounds are distantly, no significant murmurs. Abdomen and lower extremity exam unchanged. She is afebrile. She has history of CAD, prior PCI, but recent stress test did not reveal ischemia and has a preserved ejection fraction. I have cleared her for colovesical fistula surgery with a moderate to high risk given her multiple comorbid conditions. From a cardiac standpoint, she can be discharged today and continue the same home medications and follow up with me as per her appointment. She can go ahead with a colovesical fistula surgery that is going to be scheduled in the next couple of weeks. MMODL / IJN: [id number] /
--- NOTE | 2019-06-25 12:35 | P.DS ---
Providers Date of admission: 06/23/19 02:47 Expected date of discharge: 06/25/19 Attending physician: Kenya Hull MD Consults: 06/23/19 04:04 Consult Physician Routine Consulting Provider: Dee Dee Givens Consult Reason/Comments: TIA Do you want consulting provider notified?: Yes, Notify in am 06/23/19 07:54 Consult Physician Routine Consulting Provider: Murali Lanier Consult Reason/Comments: chest pain Do you want consulting provider notified?: Yes 06/23/19 10:14 Consult Physician Routine Consulting Provider: Keon Dietrich Consult Reason/Comments: icu management Do you want consulting provider notified?: Already Contacted Primary care physician: Prachi Sawyer [place] [facility] Course: Patient is a 60-year-old female with PMH of diabetes mellitus, chronic kidney disease stage III, colovesicular fistula with frequent UTIs presented to the ED for multiple complaints. She had paralysis of the right side of her body. She also reported chest pain and feelings of anxiousness and hyperventilation. Patient also reports chronic difficulty with urination with foul-smelling of her urine, completed Levaquin in the outpatient setting for UTI. Patient was initially tachycardic on presentation, without leukocytosis and positive lactic acid of 3.0. Initial troponin was less than 0.012. Patient is admitted for sepsis likely related to UTI and neurological workup to rule out CVA along with ACS. Patient developed some swelling on admission her face and throat, thought to be angioedema and was admitted to the ICU for further management. With regard to her chest pain, line was to rule out ACS. Troponin was less than 0.012, 0.112, 0.06, 0.049. Cardiology was consulted and recommended echocardiogram. Echocardiogram showed EF 55-60% with moderate LVH and basal inferior hypokinesis. Cardiology recommended discontinuing Plavix and to continue aspirin, Lipitor and atenolol. She was cleared for discharge from cardiology perspective. Her symptoms of right-sided weakness resolved on presentation. CT brain was within normal limits. Neurology was consulted and recommended CVA workup with carotid ultrasound and echocardiogram. Carotid ultrasound showed no significant stenosis. MRI was unable to be done due to severe claustrophobia the patient. Pulmonology was consulted for ICU management of angioedema. Patient was given Benadryl and started on Solu-Medrol. Her Solu-Medrol was transitioned to prednisone on discharge. She was cleared by pulmonology for discharge on 06/25/2019 on prednisone taper. Patient was noted to be hyperglycemic throughout her hospitalization thought to be related to steroid use. She was started on insulin which was titrated to maintain her blood glucose. Urine culture came back positive for E. coli sensitive to Bactrim. Patient was seen and examined prior to discharge. No acute events overnight. Patient upset about home medications not being reordered. Wanting to go home. General: [non toxic], [no distress], [appears at stated age] Derm: [warm], [dry] Head: [atraumatic], [normocephalic], [symmetric] Eyes: [EOMI], [no lid lag], [anicteric sclera] Cardiovascular: [S1S2 reg], [no murmur] Lungs: [CTA bilateral], [no rhonchi, no rales] , [no accessory muscle use] Neuro: [drooping of left eye but due to previous surgery] Psych: [Alert], [oriented], [appropriate affect] Assessment and Plan Angioedema Sepsis secondary to UTI related to a colovesicul fistula Troponin elevation likely related to sepsis, rule out ACS Right-sided weakness, resolved, rule out CVA Hypertension Diabetes mellitus with hyperglycemia likely related to steroid use Hypothyroidism Chronic kidney disease stage III Resolving. Plans: Discontinue SPRING inhibitor on discharge. Solu-Medrol rosario sitioned to prednisone. Continue to monitor. Pulmonology cleared patient for discharge. Patient initially met sepsis criteria. Heart rate greater than 100, now resolved. Leukocytosis, resolving but related to steroid-induced. Positive source of infection. Lactic acid 3.0-1.8. UA showing positive nitrite, large leukocyte esterase. Plans: Urine culture E. coli sensitive to Bactrim. Tylenol as needed for fever. IVF discontinued, encourage hydration by mouth. Follow final blood cultures. Troponin less than 0.012, 0.112, 0.06 with EKG showing sinus tachycardia RBBB. Cardiology consulted, recommends echocardiogram. Echocardiogram shows EF 55-60% with moderate concentric LVH and basal inferior left wall hypokinesis. Plans: Telemetry monitoring. Continue beta omkar. Continue aspirin, will start statin when stable. Plavix discontinued by cardiology. Cardiology cleared for discharge. CT brain negative. Echocardiogram shows EF 55-60% with moderate concentric LVH and basal inferior left wall hypokinesis. Carotid ultrasound shows no significant stenosis. Plans: We'll follow neurology recommendations. Unable to do MRI here due to claustrophobia. Neurology recommends no further workup. BP 124/55. Plans: Continue atenolol. Monitor vitals, adjust medications as necessary. [id number] glucose 219. Plans: Insulin sliding scale. Increase NovoLog to 8 units 3 times a day. Regular Accu-Cheks. Hypoglycemic precautions. TSH 0.271, free T4 within normal limits. Subclinical hyperthyroidism. Plans: Repeat TSH in 3 weeks. Creatinine 1.14. Stable. Plans: Avoid nephrotoxins. Daily BMP. [Urine culture shows E. coli resistant to levofloxacin, plans on Bactrim for 7 days. Angioedema resolving, cleared by pulmonology with prednisone taper. Neurology recommends no further workup. Repeat TSH and free T4 in 3 weeks. Plans on DC today.] This complex discharge took 45 minutes to complete. Pertinent Studies: Brain CT, echocardiogram, carotid ultrasound Patient Condition at Discharge: Serious Plan - Discharge Summary Discharge Rx Participant: Yes New Discharge Prescriptions: New Sulfamethox-Tmp 800-160Mg [Bactrim DS 800-160 mg] 1 tab PO Q12HR #14 tab predniSONE See Taper PO DIRECTED #30 tab Continue Multivitamins, Thera [Multivitamin (formulary)] 1 tab PO DAILY Allopurinol [Zyloprim] 300 mg PO HS Clopidogrel [Plavix] 75 mg PO DAILY Atorvastatin [Lipitor] 40 mg PO Q48H Pantoprazole Sodium [Protonix] 40 mg PO BID Furosemide [Lasix] 40 mg PO DAILY Pseudoephedrine HCl [Sudafed] 30 mg PO BID Cholecalciferol [Vitamin D3 (25 Mcg = 1000 Iu)] 5,000 unit PO DAILY Acetaminophen [Tylenol Arthritis] 650 mg PO DAILY Aspirin EC [Ecotrin Low Dose] 81 mg PO DAILY Atenolol [Tenormin] 25 mg PO DAILY Atorvastatin [Lipitor] 80 mg PO Q48H Hydrocodone/Acetaminophen [Vicodin 5-300 mg Tablet] 1 tab PO TID PRN PRN Reason: Pain Metolazone [Zaroxolyn] 2.5 mg PO DIRECTED Liraglutide [Victoza 2-Wes] 1.2 mg SQ DAILY Canagliflozin [Invokana] 100 mg PO DAILY Insulin Aspart [NovoLOG] 20 units SQ AC-BRKFST Insulin Aspart [NovoLOG] 4 units SQ PC-LUNCH Insulin Aspart [NovoLOG] 14 unit SQ AC-SUPPER metFORMIN HCL [Glucophage] 500 mg PO BID Levothyroxine Sodium [Synthroid] 150 mcg PO DAILY Gabapentin [Neurontin] 300 mg PO BID Nortriptyline HCl [Pamelor] 25 mg PO HS Zafirlukast [Accolate] 20 mg PO BID Baclofen 5 mg PO HS Colchicine 0.6 mg PO BID PRN PRN Reason: Pain Nitroglycerin Sl Tabs [Nitrostat] 0.4 mg SL DIRECTED PRN PRN Reason: Angina Potassium Chloride ER [K-Dur 20] 20 mg PO DIRECTED Discontinued Meloxicam [Mobic] 7.5 mg PO DAILY PRN PRN Reason: Muscle Spasm Levofloxacin [Levaquin] 500 mg PO DAILY Discharge Medication List Allopurinol [Zyloprim] 300 mg PO HS 10/13/14 [History] Atorvastatin [Lipitor] 40 mg PO Q48H 10/13/14 [History] Clopidogrel [Plavix] 75 mg PO DAILY 10/13/14 [History] Furosemide [Lasix] 40 mg PO DAILY 10/13/14 [History] Multivitamins, Thera [Multivitamin (formulary)] 1 tab PO DAILY 10/13/14 [History] Pantoprazole Sodium [Protonix] 40 mg PO BID 10/13/14 [History] Cholecalciferol [Vitamin D3 (25 Mcg = 1000 Iu)] 5,000 unit PO DAILY 10/24/14 [History] Pseudoephedrine HCl [Sudafed] 30 mg PO BID 10/24/14 [History] Acetaminophen [Tylenol Arthritis] 650 mg PO DAILY 06/23/19 [History] Aspirin EC [Ecotrin Low Dose] 81 mg PO DAILY 06/23/19 [History] Atenolol [Tenormin] 25 mg PO DAILY 06/23/19 [History] Atorvastatin [Lipitor] 80 mg PO Q48H 06/23/19 [History] Hydrocodone/Acetaminophen [Vicodin 5-300 mg Tablet] 1 tab PO TID PRN 06/23/19 [History] Metolazone [Zaroxolyn] 2.5 mg PO DIRECTED 06/23/19 [History] Baclofen 5 mg PO HS 06/24/19 [History] Canagliflozin [Invokana] 100 mg PO DAILY 06/24/19 [History] Colchicine 0.6 mg PO BID PRN 06/24/19 [History] Gabapentin [Neurontin] 300 mg PO BID 06/24/19 [History] Insulin Aspart [NovoLOG] 4 units SQ PC-LUNCH 06/24/19 [History] Insulin Aspart [NovoLOG] 14 unit SQ AC-SUPPER 06/24/19 [History] Insulin Aspart [NovoLOG] 20 units SQ AC-BRKFST 06/24/19 [History] Levothyroxine Sodium [Synthroid] 150 mcg PO DAILY 06/24/19 [History] Liraglutide [Victoza 2-Wes] 1.2 mg SQ DAILY 06/24/19 [History] Nitroglycerin Sl Tabs [Nitrostat] 0.4 mg SL DIRECTED PRN 06/24/19 [History] Nortriptyline HCl [Pamelor] 25 mg PO HS 06/24/19 [History] Potassium Chloride ER [K-Dur 20] 20 mg PO DIRECTED 06/24/19 [History] Zafirlukast [Accolate] 20 mg PO BID 06/24/19 [History] metFORMIN HCL [Glucophage] 500 mg PO BID 06/24/19 [History] Sulfamethox-Tmp 800-160Mg [Bactrim DS 800-160 mg] 1 tab PO Q12HR #14 tab 06/25/19 [Rx] predniSONE See Taper PO DIRECTED #30 tab 06/25/19 [Rx] Follow up Appointment(s)/Referral(s): Jorge Chavis MD [STAFF PHYSICIAN] - 1-2 days Activity/Diet/Wound Care/Special Instructions: Diet: Diabetic Follow-up PCP within 1-2 days of discharge. Follow-up with your urologist for concerns of colovesicular fistula at [facility]. Please take all medications as advised. Discharge Disposition: HOME SELF-CARE
== END 2019-06-25 13:24 | disposition home or self-care (01) | DRG 872 ==
LOC: EC 01:07 → 2SICU 02:47 → 3NMEDONC 02:47 → UNDOADMIN 02:47 → 2SICU 06:43 → 4MS4W 06-24 16:08
PROVIDERS: ADMIT Internal Medicine; ATTEND Internal Medicine
DX: A41.51 Sepsis due to Escherichia coli [E. coli] (principal); N39.0 Urinary tract infection, site not specified; Z68.41 Body mass index [BMI] 40.0-44.9, adult; G81.91 Hemiplegia, unspecified affecting right dominant side; N32.1 Vesicointestinal fistula; E87.2 Acidosis; E03.9 Hypothyroidism, unspecified; E05.90 Thyrotoxicosis, unspecified without thyrotoxic crisis or storm; E11.22 Type 2 diabetes mellitus with diabetic chronic kidney disease; E11.40 Type 2 diabetes mellitus with diabetic neuropathy, unspecified; E11.65 Type 2 diabetes mellitus with hyperglycemia; E66.9 Obesity, unspecified; E78.5 Hyperlipidemia, unspecified; F40.240 Claustrophobia; I12.9 Hypertensive chronic kidney disease with stage 1 through stage 4 chronic kidney disease, or unspecified chronic kidney disease; R74.8 Abnormal levels of other serum enzymes; I25.10 Atherosclerotic heart disease of native coronary artery without angina pectoris; I25.2 Old myocardial infarction; I34.1 Nonrheumatic mitral (valve) prolapse; I45.10 Unspecified right bundle-branch block; M19.90 Unspecified osteoarthritis, unspecified site; N18.3 Chronic kidney disease, stage 3 (moderate); R13.10 Dysphagia, unspecified; T36.1X5A Adverse effect of cephalosporins and other beta-lactam antibiotics, initial encounter; T38.0X5A Adverse effect of glucocorticoids and synthetic analogues, initial encounter; T78.3XXA Angioneurotic edema, initial encounter; Z16.23 Resistance to quinolones and fluoroquinolones; Z79.02 Long term (current) use of antithrombotics/antiplatelets; Z79.4 Long term (current) use of insulin; Z79.82 Long term (current) use of aspirin; Z79.899 Other long term (current) drug therapy; Z82.49 Family history of ischemic heart disease and other diseases of the circulatory system; Z83.3 Family history of diabetes mellitus; Z83.2 Family history of diseases of the blood and blood-forming organs and certain disorders involving the immune mechanism; Z86.711 Personal history of pulmonary embolism; Z86.718 Personal history of other venous thrombosis and embolism; Z87.440 Personal history of urinary (tract) infections; Z87.442 Personal history of urinary calculi; Z90.710 Acquired absence of both cervix and uterus; Z95.5 Presence of coronary angioplasty implant and graft; Z96.611 Presence of right artificial shoulder joint; Z98.1 Arthrodesis status; Z88.7 Allergy status to serum and vaccine; Z88.6 Allergy status to analgesic agent; Z88.1 Allergy status to other antibiotic agents; Z91.030 Bee allergy status; Z91.041 Radiographic dye allergy status; Z88.5 Allergy status to narcotic agent; Z91.013 Allergy to seafood; Z90.49 Acquired absence of other specified parts of digestive tract; R29.703 NIHSS score 3
CPT/HCPCS: 36415; 70450; 80048; 80053; 80061; 81001; 82550; 82553; 82607; 83036; 83605; 84439; 84443; 84484; 85025; 85027; 85610; 85730; 87040; 87077; 87086; 87186; 93005; 93306; 93880; 96360; 96361; 96365; 96372; 96375; 99291; 99292

== ENCOUNTER → 2019-07-19 | Outpatient (CLI) | payer MEDICARE, OTHER ==
[2019-07-19 15:01] VITALS: BP 141/92; PULSE 92; TEMP 99; BMI 40.0
--- NOTE | 2019-07-19 17:33 | P.BASOAP ---
Subjective Progress Note Date: 07/19/19 Principal diagnosis: Morbid obesity Patient here today to have her lap band empty. She is having sigmoid colectomy for diagnosis of colovesical fistula week. Otherwise feels well. Happy with level of restriction. Objective - Vital Signs Vital signs: Vital Signs Temp 99 F 07/19/19 14:57 Pulse 92 07/19/19 14:57 Resp BP 141/92 07/19/19 14:57 Pulse Ox Intake & Output 07/18/19 07/19/19 07/19/19 18:59 06:59 18:59 Weight 121.291 kg - Exam Abdomen: Soft, nontender, nondistended Assessment/Plan (1) Morbid obesity Narrative/Plan: Will into the patient's band at this time. Patient will follow up after sigmoid resection for readjustment.The patient's lap band port was palpated. The site was aseptically prepped. The Santiago needle was advanced into the port. A total of 3.8 ml of fluid was evacuated. Pressure was held and a sterile dressing was applied. Plan: Date: 07/19/19 Initial Weight: Initial BMI: Current Weight: 121.291 kg Current BMI: 40.0 Type of Surgery: Total Volume in Band: 0 Previous Volume: Volume Removed: 5 Volume Added: Band Size:
== END | disposition home or self-care (01) ==
LOC: BARWHC3 14:23
PROVIDERS: ATTEND Surgery
DX: E66.01 Morbid (severe) obesity due to excess calories (principal); Z68.41 Body mass index [BMI] 40.0-44.9, adult
CPT/HCPCS: 99212

== ENCOUNTER → 2019-11-01 | Outpatient (CLI) | payer MEDICARE, OTHER ==
[2019-11-01 13:19] VITALS: BP 165/76; PULSE 81; RESP 16; TEMP 99; BMI 42.3
--- NOTE | 2019-11-01 16:39 | P.BASOAP ---
Subjective Progress Note Date: 11/01/19 Principal diagnosis: Morbid obesity Patient returns today for reevaluation. Was last seen in June. Had her band emptied at that time because of colon surgery. 3.8 mL was removed. Doing well currently. Would likeband refilled. Objective - Vital Signs Vital signs: Vital Signs Temp 99 F 11/01/19 13:16 Pulse 81 11/01/19 13:16 Resp 16 11/01/19 13:16 BP 165/76 11/01/19 13:16 Pulse Ox Intake & Output 10/31/19 11/01/19 11/01/19 18:59 06:59 18:59 Weight 126.099 kg - Exam Abdomen: Soft, nontender, nondistended, recent scars noted Assessment/Plan (1) Morbid obesity Narrative/Plan: Will proceed with LAP-BAND adjustment at this time. Continue dietary and exercise regimen. The patient's lap band port was palpated. The site was aseptically prepped. The Santiago needle was advanced into the port. A total of 2 ml of fluid was added. Pressure was held and a sterile dressing was applied. Plan: Date: 11/01/19 Initial Weight: 126.099 kg Initial BMI: 42.3 Current Weight: 126.099 kg Current BMI: 42.3 Type of Surgery: Total Volume in Band: 2 Previous Volume: Volume Removed: Volume Added: 2 Band Size:
== END | disposition home or self-care (01) ==
LOC: BARWHC3 12:51
PROVIDERS: ATTEND Surgery
DX: E66.01 Morbid (severe) obesity due to excess calories (principal); Z68.41 Body mass index [BMI] 40.0-44.9, adult
CPT/HCPCS: 99212

== ENCOUNTER → 2019-12-06 | Outpatient (CLI) | payer MEDICARE, OTHER ==
[2019-12-06 13:06] VITALS: BP 168/86; PULSE 86; RESP 16; TEMP 98.6; BMI 42.7
--- NOTE | 2019-12-06 16:02 | P.BASOAP ---
Subjective Progress Note Date: 12/06/19 Principal diagnosis: Morbid obesity Patient last seen in October. The patient had 2 mL added back at that time. Previously was at 3.8 mL. Doing well. No nausea or vomiting. No reflux. No night cough. Once a band adjustment. Objective - Vital Signs Vital signs: Vital Signs Temp 98.6 F 12/06/19 13:04 Pulse 86 12/06/19 13:04 Resp 16 12/06/19 13:04 BP 168/86 12/06/19 13:04 Pulse Ox Intake & Output 12/05/19 12/06/19 12/06/19 18:59 06:59 18:59 Weight 127.459 kg - Exam Abdomen: Soft, nontender, nondistended Assessment/Plan (1) Morbid obesity Narrative/Plan: Patient interested in band adjustment. We'll add 1.3 mL today were a total of 3.3 mL. Follow-up in 1-2 months. Plan: Date: 12/06/19 Initial Weight: 126.099 kg Initial BMI: 42.3 Current Weight: 127.459 kg Current BMI: 42.7 Type of Surgery: Total Volume in Band: 3.3 Previous Volume: 2 Volume Removed: Volume Added: 1.3 Band Size:
== END ==
LOC: BARWHC3 12:31
PROVIDERS: ATTEND Surgery
DX: E66.01 Morbid (severe) obesity due to excess calories (principal); Z68.41 Body mass index [BMI] 40.0-44.9, adult
CPT/HCPCS: 99212

== ENCOUNTER → 2020-03-16 | Outpatient (CLI) | payer MEDICARE, OTHER ==
[2020-03-16 08:10] VITALS: BP 123/76; PULSE 66; TEMP 98.2; BMI 43.9
--- NOTE | 2020-03-16 08:17 | P.BASOAP ---
Subjective Progress Note Date: 03/16/20 Principal diagnosis: Morbid obesity Patient here today for routine bariatric follow-up. Last visit in November. Patient had been at 3.8 mL prior to sigmoid colectomy. Last visit she was brought up to 3.3 mL. Still hungry. She has gained 8 pounds. Wants to go back to 3.8 mL. Also having some intermittent bright red blood per rectum. We'll be contacting our office for colonoscopy. Objective - Vital Signs Vital signs: Vital Signs Temp 98.2 F 03/16/20 08:06 Pulse 66 03/16/20 08:06 Resp BP 123/76 03/16/20 08:06 Pulse Ox Intake & Output 03/15/20 03/16/20 03/16/20 18:59 06:59 18:59 Weight 131.088 kg - Exam Abdomen: Soft, nontender, nondistended Assessment/Plan (1) Morbid obesity Narrative/Plan: Will proceed with LAP-BAND adjustment. 0.5 mL was added for a total of 3.8 mL. The patient will call for her next visit. Tentatively plan colonoscopy the next few months. Plan: Date: 03/16/20 Initial Weight: 126.099 kg Initial BMI: 42.3 Current Weight: 131.088 kg Current BMI: 43.9 Type of Surgery: Total Volume in Band: 3.3 Previous Volume: Volume Removed: Volume Added: Band Size:
== END | disposition home or self-care (01) ==
LOC: BARWHC3 07:52
PROVIDERS: ATTEND Surgery
DX: Z48.815 Encounter for surgical aftercare following surgery on the digestive system (principal); E66.01 Morbid (severe) obesity due to excess calories; Z68.41 Body mass index [BMI] 40.0-44.9, adult; Z98.84 Bariatric surgery status
CPT/HCPCS: 99212

== ENCOUNTER 2020-07-10 07:30 | Day surgery (SDC) | payer MEDICARE, OTHER ==
[2020-07-04 15:33] VITALS: BMI 40.3
[~2020-07-10 07:30] MED LIST: LACTATED RINGERS 1,000 ML IV SCH
--- NOTE | 2020-07-10 08:05 | P.GSHP ---
History of Present Illness H&P Date: 07/10/20 Chief Complaint: Rectal bleeding Patient here today for colonoscopy. Patient has had episodes of rectal bleeding. 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 Otherwise feels well. Mild abdominal pain at times. Past Medical History Past Medical History: Atrial Fibrillation, Diabetes Mellitus, Deep Vein Thrombosis (DVT), Hyperlipidemia, Hypertension, Myocardial Infarction (ME), Mitral Valve Prolapse (MVP), Osteoarthritis (OA), Pulmonary Embolus (PE), Renal Disease Additional Past Medical History / Comment(s): NEUROPATHY CRISTOPHER HANDS AND FEET,MITRAL VALVE PROLAPSE,VARICOSE VEINS, STEROID INJECTIONS IN APRIL 14- rt knee,left hand KIDNEY STONES, Colorectal fistula 2018, chronic bronchitis and asthma,rt knee injury 01/12 wearing brace and cane to follow up with dr keven burt Last Myocardial Infarction Date:: 2006 History of Any Multi-Drug Resistant Organisms: None Reported Past Surgical History: Appendectomy, Bariatric Surgery, Cholecystectomy, Heart Catheterization With Stent, Hysterectomy, Tonsillectomy Additional Past Surgical History / Comment(s): R humeral head replacement COLECTOMY R/T RUPTURED DIVERTICULI AND ABSCESS,LAB BAND 2006-.,CARDIAC STENTS X2, REPAIR RT ACHILLES TENDON,CRISTOPHER CARPEL TUNNEL REPAIR,LT RADIAL HEAD PARTIALLY REMOVED W/ REPAIR,LAMINECTOMY L1-L4,FUSION L5-S1 colovescicle fistula repair, cristopher cataract surgery Past Anesthesia/Blood Transfusion Reactions: No Reported Reaction Date of Last Stent Placement:: 2006 Smoking Status: Never smoker - Past Family History Father Family Medical History: Deep Vein Thrombosis (DVT), Pulmonary Embolus Mother Family Medical History: Deep Vein Thrombosis (DVT), Pulmonary Embolus Medications and Allergies Home Medications Medication Instructions Recorded Confirmed Type Atorvastatin [Lipitor] 40 mg PO Q48H 10/13/14 07/04/20 History Clopidogrel [Plavix] 75 mg PO DAILY 10/13/14 07/04/20 History Furosemide [Lasix] 40 mg PO DAILY 10/13/14 07/04/20 History Multivitamins, Thera [Multivitamin 1 tab PO DAILY 10/13/14 07/04/20 History (formulary)] Pantoprazole Sodium [Protonix] 40 mg PO BID 10/13/14 07/04/20 History allopurinoL [Zyloprim] 300 mg PO HS 10/13/14 07/04/20 History Cholecalciferol [Vitamin D3 (25 5,000 unit PO DAILY 10/24/14 07/04/20 History Mcg = 1000 Iu)] Aspirin EC [Ecotrin Low Dose] 81 mg PO DAILY 06/23/19 07/04/20 History Atorvastatin [Lipitor] 80 mg PO Q48H 06/23/19 07/04/20 History metOLazone [Zaroxolyn] 2.5 mg PO BRISCOE 06/23/19 07/04/20 History Baclofen 5 mg PO HS 06/24/19 07/04/20 History Canagliflozin [Invokana] 100 mg PO DAILY 06/24/19 07/04/20 History Colchicine 0.6 mg PO BID PRN 06/24/19 07/04/20 History Gabapentin [Neurontin] 300 mg PO TID 06/24/19 07/04/20 History Insulin Aspart [NovoLOG] 4 units SQ PC-LUNCH 06/24/19 07/04/20 History Insulin Aspart [NovoLOG] 18 unit SQ AC-SUPPER 06/24/19 07/04/20 History Insulin Aspart [NovoLOG] 22 units SQ AC-BRKFST 06/24/19 07/04/20 History Levothyroxine Sodium [Synthroid] 150 mcg PO DAILY 06/24/19 07/04/20 History Liraglutide [Victoza 2-Wes] 1.2 mg SQ DAILY 06/24/19 07/04/20 History Nitroglycerin Sl Tabs [Nitrostat] 0.4 mg SL DIRECTED PRN 06/24/19 07/04/20 History Nortriptyline HCl [Pamelor] 25 mg PO HS 06/24/19 07/04/20 History Potassium Chloride ER [K-Dur 20] 20 mg PO SUTUTHSA 06/24/19 07/04/20 History Zafirlukast [Accolate] 20 mg PO BID 06/24/19 07/04/20 History metFORMIN HCL [Glucophage] 500 mg PO BID 06/24/19 07/04/20 History Acetaminophen [Tylenol Arthritis] 2 tab PO DAILY 07/04/20 07/04/20 History Acetaminophen [Tylenol Arthritis] 650 mg PO DAILY PRN 07/04/20 07/04/20 History Cannabidiol (Cbd) [Epidiolex] 1 dose TOPICAL DAILY PRN 07/04/20 07/04/20 History Diclofenac Sodium [Voltaren Gel] 2 gram TOPICAL HS 07/04/20 07/04/20 History Furosemide [Lasix] 20 mg PO DIRECTED PRN 07/04/20 07/04/20 History HYDROcodone/APAP 5-325MG [[place] 1 tab PO TID PRN 07/04/20 07/04/20 History 5-325] Iron 28 mg PO Q48H 07/04/20 07/04/20 History Loratadine [Claritin] 10 mg PO DAILY 07/04/20 07/04/20 History Magnesium 400 mg PO HS 07/04/20 07/04/20 History Potassium Chloride 30 meq PO MOWEFR 07/04/20 07/04/20 History atenoloL [Atenolol] 25 mg PO DAILY 07/04/20 07/04/20 History Allergies Allergy/AdvReac Type Severity Reaction Status Date / Time ceftriaxone [From Rocephin] Allergy Swelling Verified 07/10/20 07:58 ibuprofen [From Motrin] Allergy KIDNEY Verified 07/10/20 07:58 FAILURE Iodinated Contrast Media Allergy Rash/Hives Verified 07/10/20 07:58 [Iodinated Contrast Media - IV Dye] isoniazid Allergy RASH,WT Verified 07/10/20 07:58 GAIN,ELEV B/P,ELEV BLOOD SUGAR morphine Allergy Dyspnea Verified 07/10/20 07:58 venom-honey bee Allergy SWELLING, Verified 07/10/20 07:58 [bee venom (honey bee)] HIVES meperidine HCl [From Demerol] AdvReac Nausea & Verified 07/10/20 07:58 Vomiting SHRIMP Allergy Rash/Hives Uncoded 07/10/20 07:58 VACCINE PRESERVATIVES Allergy HIVES Uncoded 07/10/20 07:58 Surgical - Exam Physical exam: General: Well-developed, well-nourished HEENT: Normocephalic, sclerae nonicteric Abdomen: Nontender, nondistended Extremities: No edema Neuro: Alert and oriented Assessment and Plan (1) Rectal bleeding Narrative/Plan: Will proceed with colonoscopy at this time Current Visit: Yes Status: Acute Code(s): K62.5 - HEMORRHAGE OF ANUS AND RECTUM SNOMED Code(s): 27912682
[2020-07-10 08:07] VITALS: TEMP 96.7
[2020-07-10] MEDS ORDERED: ONDANSETRON 4 MG/2 ML VIAL IVP ONE (08:08)
[2020-07-10 08:09] LABS: Glucose,Whole Blood 166 mg/dL (75-99)
[2020-07-10] MEDS ORDERED: ONDANSETRON 4 MG/2 ML VIAL ONE (08:09)
[2020-07-10] MEDS ORDERED: PROPOFOL 10 MG/ML 20 ML VIAL IV ONE (08:12)
[2020-07-10] MEDS ORDERED: LIDOCAINE 1% INJ 10MG/ML (20 ML MDV) ONE (08:12)
--- NOTE | 2020-07-10 08:43 | P.PCN ---
Date of Procedure: 07/10/20 Procedure(s) Performed: PREOPERATIVE DIAGNOSIS: Rectal bleeding POSTOPERATIVE DIAGNOSIS: Anastomotic stricture, polyps, diverticulosis, hemorrhoids PROCEDURE: Colonoscopy with snare polypectomy ANESTHESIA: MAC SURGEON: Toy Underwood M.D. SPECIMENS: Polyps ENDOSCOPIC PROCEDURE: The patient was placed on the endoscopy table in the left decubitus position. The Olympus colonoscope was inserted into the anus and passed under direct visualization to the base of the cecum. The appendiceal orifice was visualized. From that point the scope was slowly withdrawn inspecting all surfaces carefully. There were no neoplastic inflammatory or polypoid lesions throughout the cecum or ascending colon. In the transverse colon 3 polyps were identified and removed using the snare with cautery technique. In the descending colon 2 polyps were seen and removed in a similar fashion. The patient had mild diverticulosis scattered throughout the colon. The patient's prep was slightly suboptimal limiting our visualization slightly. At the anastomosis there was a stricture present. The scope was able to get t hrough the stricture after gentle pressure. I estimate the size of the stricture to be approximately 10-11 mm. The patient had a long rectal stump that appeared normal. Patient had large hemorrhoids at the anus both internal and external without any evidence of recent or active bleeding. Digital rectal examination was normal. The patient was taken to the recovery room in stable condition per anesthesia guidelines. RECOMMENDATIONS: Await biopsy results. Recommend repeat colonoscopy 2 years. We'll discuss endoscopic findings with the patient. Intermittent rectal bleeding likely exacerbated by chronic anticoagulant use. Source of bleeding could be stricture which was slightly inflamed or hemorrhoids.
[2020-07-10 08:47] LABS: Glucose,Whole Blood 170 mg/dL (75-99)
[2020-07-10 09:18] VITALS: BP 120/79; PULSE 62; RESP 16
== END 2020-07-10 09:26 | disposition home or self-care (01) ==
LOC: ORWHC2ENDO 07:30
PROVIDERS: ATTEND Surgery
DX: D12.3 Benign neoplasm of transverse colon (principal); D12.4 Benign neoplasm of descending colon; K57.30 Diverticulosis of large intestine without perforation or abscess without bleeding; K64.4 Residual hemorrhoidal skin tags; K64.8 Other hemorrhoids; K91.858 Other complications of intestinal pouch; K62.4 Stenosis of anus and rectum; I10 Essential (primary) hypertension; I25.10 Atherosclerotic heart disease of native coronary artery without angina pectoris; I48.91 Unspecified atrial fibrillation; J44.9 Chronic obstructive pulmonary disease, unspecified; M19.90 Unspecified osteoarthritis, unspecified site; E11.40 Type 2 diabetes mellitus with diabetic neuropathy, unspecified; I34.1 Nonrheumatic mitral (valve) prolapse; I83.90 Asymptomatic varicose veins of unspecified lower extremity; I25.2 Old myocardial infarction; E78.5 Hyperlipidemia, unspecified; Z91.013 Allergy to seafood; Z88.5 Allergy status to narcotic agent; Z91.030 Bee allergy status; Z88.7 Allergy status to serum and vaccine; Z88.6 Allergy status to analgesic agent; Z88.1 Allergy status to other antibiotic agents; Z79.1 Long term (current) use of non-steroidal anti-inflammatories (NSAID); Z79.02 Long term (current) use of antithrombotics/antiplatelets; Z79.4 Long term (current) use of insulin; Z79.82 Long term (current) use of aspirin; Z79.890 Hormone replacement therapy; Z79.899 Other long term (current) drug therapy; Z86.711 Personal history of pulmonary embolism; Z86.718 Personal history of other venous thrombosis and embolism; Z87.442 Personal history of urinary calculi; Z90.49 Acquired absence of other specified parts of digestive tract; Z90.710 Acquired absence of both cervix and uterus; Z98.84 Bariatric surgery status; Z95.5 Presence of coronary angioplasty implant and graft; Z90.89 Acquired absence of other organs; Z98.1 Arthrodesis status; Z98.41 Cataract extraction status, right eye; Z98.42 Cataract extraction status, left eye; Z82.49 Family history of ischemic heart disease and other diseases of the circulatory system; Z91.041 Radiographic dye allergy status
CPT/HCPCS: 88305; 45385; J2405; J2001; J2704

== ENCOUNTER → 2020-10-02 | Outpatient (CLI) | payer MEDICARE, OTHER ==
--- NOTE | 2020-10-03 16:21 | PN ---
PROGRESS NOTE DATE OF SERVICE: 10/02/2020 CHIEF COMPLAINT: Morbid obesity. INTERVAL HISTORY: The patient returns for re-evaluation. Underwent colonoscopy 07/10, showing a stricture at her previous colorectal anastomosis. The patient has had some issues with diarrhea since her colonoscopy. Was improving with probiotics. The patient was diagnosed with COVID 1 month ago and had recurrence of her diarrhea. It is slowly improving. Still taking Levsin daily. Has not tried any supplemental fibers. Still is taking probiotics. Minimal rectal bleeding at times. The patient has lost 8 pounds since her last visit. She is on antibiotics for urinary tract infection. Still having mild occasional left lower quadrant discomfort. Last several days the patient's bowels have been normal. Denies nausea, vomiting. No reflux. PHYSICAL EXAM: Abdomen is soft, nontender, nondistended. IMPRESSION/PLAN: A 69-year-old female with morbid obesity and history of colovesical fistula. Patient doing better overall. Recent colonoscopy results once again reviewed. Continue dietary and exercise regimen. Continue probiotics and Levsin as needed. Add Metamucil to see if this helps with her loose stools. The patient states she will discuss this with her colorectal surgeon as well. MMODL / IJN: [id number] /
== END | disposition home or self-care (01) ==
CPT/HCPCS: 99211

== ENCOUNTER → 2021-02-21 | Outpatient (CLI) | payer MEDICARE, OTHER ==
--- NOTE | 2021-02-21 12:34 | CT ---
EXAMINATION TYPE: CT angio chest DATE OF EXAM: 02/21/2021 11:56 AM COMPARISON: Chest CT June 14, 2019. Prior chest x-ray 2013. HISTORY: dyspnea, possible paralyzed diaphragm CT DLP: 712 mGycm Automated exposure control for dose reduction was used. CONTRAST: CTA scan of the thorax is performed with IV Contrast, patient injected with 80 mL of Isovue 370, pulm onary embolism protocol. MIP images are created and reviewed. FINDINGS: LUNGS: Redemonstration of elevated and eventrated anterior aspect right hemidiaphragm. Exam slightly suboptimal as patient unable to breath, this limits evaluation for subcentimeter nodules. Lungs are g rossly clear without new consolidation. Persistent multiple bilateral nodules, largest in the left lo wer lobe measures 1.7 x 1.3 cm image 73 unchanged from prior with smaller nodules extending laterally . Additional scattered subcentimeter basilar nodules redemonstrated. No pleural effusion or pneumotho rax seen bilaterally. MEDIASTINUM: There is suboptimal study with most dense contrast in the SVC. Satisfactory opacificatio n of aorta without aneurysm or dissection. Heterogeneity in the pulmonary arteries, no central pulmon jacquelyn embolism. Cannot entirely exclude small segmental and subsegmental PE on this study There are no some prominent but subcentimeter bilateral hilar lymph nodes redemonstrated. No new greater than 1 c m mediastinal lymph nodes. No pericardial effusion is seen. Prominent Coronary artery calcification r edemonstrated. No cardiomegaly. Thyroid suspected surgically absent similar to prior. OTHER: Slight scoliosis with multilevel spurring in the spine. Lap band device epigastric region red emonstrated, position stable. IMPRESSION: Suboptimal study without central pulmonary embolism. Cannot exclude smaller peripheral pu lmonary embolism. Persistent elevated and eventrated anterior aspect right hemidiaphragm. Fairly stab le scattered bilateral nodules. Consider PET CT correlation if has not been performed. No new acute p ulmonary process.
--- NOTE | 2021-02-21 13:38 | FL ---
EXAMINATION TYPE: FL sniff test without CXR DATE OF EXAM: 02/21/2021 COMPARISON: Same day CTA chest and older studies. Chest x-ray back through 2013. HISTORY: History of COVID infection August 2020, worsening shortness of breath with exertion. Possi ble paralyzed diaphragm. TECHNIQUE: Fluoroscopic guidance was provided during sniff test procedure performed by myself. A tot al of 19 seconds of fluoroscopic time was utilized during the procedure and 50 spot images were acqui red. FINDINGS: There is elevation of the anterior aspect right hemidiaphragm. There is appropriate direct ion of movement of both diaphragms during normal breathing. During deep breathing there is diminished inferior movement of the right hemidiaphragm versus left hemidiaphragm noted. No paradoxical movemen t is identified however. IMPRESSION: As Above. Elevated and eventrated anterior aspect right hemidiaphragm been present since 2014 study. No paralysis noted. Diminished degree of movement of right hemidiaphragm versus opposite left side seen during deep inspiration.
== END | disposition home or self-care (01) ==
LOC: RADFLMAIN 10:34
PROVIDERS: ATTEND Internal Medicine Critical Care Medicine
DX: R91.8 Other nonspecific abnormal finding of lung field (principal); J98.6 Disorders of diaphragm; Z86.16 Personal history of COVID-19
CPT/HCPCS: 82565; 84520; 76000; 71275; 36415; Q9967

== ENCOUNTER 2021-04-26 06:29 | Day surgery (SDC) | payer MEDICARE, OTHER ==
[2021-04-23 16:12] VITALS: BMI 44.3
[~2021-04-26 06:29] MED LIST changes: +ACETAMINOPHEN TAB 500 MG TAB PO PRN; +HEPARIN SODIUM,PORCINE/PF 5,000 UNIT/0.5 ML SYRINGE SQ PRN; -LACTATED RINGERS 1,000 ML IV SCH; +Pre Op ABX Message 1 EACH MISC MISCELLANE ONE
[2021-04-26] MEDS ORDERED: LACTATED RINGERS 1,000 ML IV SCH (06:40)
[2021-04-26] MEDS ORDERED: ONDANSETRON 4 MG/2 ML VIAL IVP ONE (06:40)
[2021-04-26] MEDS ORDERED: MIDAZOLAM 2 MG/2 ML VIAL IV PRN (06:40)
[2021-04-26] MEDS ORDERED: DEXAMETHASONE SOD PHOSPHATE 4 MG/ML 1 ML VIAL IV ONE (06:40)
[2021-04-26] MEDS ORDERED: fentaNYL (PF) 50 MCG/ML 2 ML AMP IV PRN (07:00)
[2021-04-26 07:14] LABS: Glucose,Whole Blood 118 mg/dL (75-99)
[2021-04-26] MEDS ORDERED: LIDOCAINE 1% INJ 10MG/ML (20 ML MDV) ONE (07:25)
[2021-04-26] MEDS ORDERED: SUCCINYLCHOLINE CHLORIDE 100 MG/5 ML SYR IV ONE (07:25)
[2021-04-26] MEDS ORDERED: GLYCOPYRROLATE 0.2 MG/ML 2 ML VIAL ONE (07:25)
[2021-04-26] MEDS ORDERED: PROPOFOL 10 MG/ML 20 ML VIAL IV ONE (07:25)
[2021-04-26] MEDS ORDERED: fentaNYL (PF) 50 MCG/ML 2 ML AMP ONE (07:25)
[2021-04-26] MEDS ORDERED: MIDAZOLAM 2 MG/2 ML VIAL ONE (07:25)
[2021-04-26] MEDS ORDERED: ePHEDrine SULFATE/0.9% NACL/PF 50 MG/5 ML SYRINGE IV ONE (07:25)
[2021-04-26] MEDS ORDERED: LIDOCAINE 1%-EPI 1:100,000 20 ML VIAL SQ ONE ×2 (07:47→08:08)
[2021-04-26] MEDS ORDERED: BACITRACIN ZINC 500 UNIT/GM OINT 28.4 GM TUBE TOPICAL ONE (08:08)
[2021-04-26] MEDS ORDERED: NALOXONE 0.4 MG/ML 1 ML VIAL IV PRN (08:20)
[2021-04-26] MEDS ORDERED: HYDROcodone/APAP 5-325MG 1 EACH TAB PO PRN (08:20)
[2021-04-26 08:26] VITALS: TEMP 97.1
--- NOTE | 2021-04-26 08:39 | P.OP ---
Date of Procedure: 04/26/21 Procedure(s) Performed: PREOPERATIVE DIAGNOSIS: Right upper back melanoma POSTOPERATIVE DIAGNOSIS: Same PROCEDURE: Wide excision with layered closure SURGEON: Yasmine EBL: 5 mL ANESTHESIA: Gen. COMPLICATIONS: None OPERATIVE PROCEDURE: Patient placed in the left decubitus position after general anesthesia was achieved. The patient had a 12 x 9 mm scar from the previous melanoma excision. Peripheral margins at that time were positive for in situ disease. 1 cm margins were marked out on the skin. A 3.2 x 6.4 cm elliptical incision was then made. Dissection took place down into the subcutaneous fat and the skin lesion was fully excised through the fatty layer. Flaps are raised in the suprafascial location circumferentially. Subcutaneous tissues were closed using interrupted 3-0 Vicryl sutures. Skin closed using both running and interrupted horizontal mattress 4-0 nylon sutures. Sterile dressings applied. DISPOSITION: Stable to recovery room
[2021-04-26 08:44] LABS: Glucose,Whole Blood 149 mg/dL (75-99)
[2021-04-26 09:17] VITALS: BP 110/67; PULSE 69; RESP 20
== END 2021-04-26 09:35 | disposition home or self-care (01) ==
LOC: OR 06:29
PROVIDERS: ATTEND Surgery
DX: Z08 Encounter for follow-up examination after completed treatment for malignant neoplasm (principal); Z85.820 Personal history of malignant melanoma of skin
CPT/HCPCS: 12032; 11406; 93005; 88305; 88342; 88341; J2250; J1100; J2405; J2001; J3010; J0330; J2704; J1644

== ENCOUNTER → 2021-06-25 | Outpatient (CLI) | payer MEDICARE, OTHER ==
--- NOTE | 2021-06-25 13:47 | US ---
EXAMINATION TYPE: US kidneys/renal and bladder DATE OF EXAM: 06/25/2021 COMPARISON: CT dated 06/08/2019 CLINICAL HISTORY: N28.9 CKD. EXAM MEASUREMENTS: Right Kidney: 11.8 x 5.6 x 5.3 cm Left Kidney: 11.6 x 5.3 x 5.9 cm Right Kidney: cyst measures 1.3 x 1.3 x 1.5 cm Left Kidney: lower pole cyst measures 2.5 x 2.6 x 2.6 cm Bladder: wnl Bilateral Jets seen: No IMPRESSION: Bilateral simple appearing renal cysts
== END | disposition home or self-care (01) ==
LOC: RADUSWWP 11:40
PROVIDERS: ATTEND Family Medicine
DX: N18.9 Chronic kidney disease, unspecified (principal); N28.1 Cyst of kidney, acquired
CPT/HCPCS: 76770

== ENCOUNTER → 2021-10-02 | Outpatient (CLI) | payer MEDICARE, OTHER ==
--- NOTE | 2021-10-02 08:33 | US ---
EXAMINATION TYPE: US abdomen complete DATE OF EXAM: 10/02/2021 COMPARISON: 06/25/2021 renal ultrasound CLINICAL HISTORY: R94.5 ABN LIVER. abn liver function test, morbidly obese, multiple bowel resections and bariatric surgery EXAM MEASUREMENTS: Exam is limited due to patient body habitus. Liver Length: 14.1 cm Gallbladder Wall: Surgically absent CBD: 0.8 cm Spleen: 11.1 cm Right Kidney: 10.6 x 4.7 x 5.3 cm Left Kidney: 10.1 x 3.9 x 5.9 cm limited views due to habitus and bowel gas Pancreas: wnl Liver: very difficult to penetrate Gallbladder: Surgically absent Evidence for sonographic Handy's sign: no CBD: wnl Spleen: wnl Right Kidney: wnl - unable to view known cyst as noted on previous exam Left Kidney: wnl - unable to view known cyst as noted on previous exam Upper IVC: wnl Abd Aorta: only proximal portion seen and appears wnl IMPRESSION: 1. No suspicious ultrasound abnormality within the abdomen. Exam is limited due to body habitus.
== END | disposition home or self-care (01) ==
LOC: RADUSWWP 06:55
PROVIDERS: ATTEND Family Medicine
DX: E66.01 Morbid (severe) obesity due to excess calories (principal); R94.5 Abnormal results of liver function studies; R94.4 Abnormal results of kidney function studies
CPT/HCPCS: 76700

== ENCOUNTER 2022-09-29 17:07 | Emergency (ER) | payer MEDICARE, OTHER ==
[2022-09-29] MEDS ORDERED: FAMOTIDINE 20 MG/2 ML VIAL IV STA (18:09)
[2022-09-29] MEDS ORDERED: diphenhydrAMINE 50 MG/ML 1 ML VIAL IVP STA (18:09)
[2022-09-29] MEDS ORDERED: methylPREDNISolone SOD SUCCI 125 MG/2 ML VIAL IV STA (18:09)
--- NOTE | 2022-09-29 18:20 | XR ---
EXAMINATION TYPE: XR chest 1V portable DATE OF EXAM: 09/29/2022 COMPARISON: 12/19/2013 HISTORY: Pain TECHNIQUE: Single frontal view of the chest is obtained. FINDINGS: Postsurgical change right shoulder with arthropathy bilaterally. Elevated right hemidiaphr agm. Surgical clips overlying soft tissue neck. Heart size normal. No overt failure or pneumothorax. No pleural effusion. Patchy bilateral areas of consolidation in the perihilar region. IMPRESSION: Limited inspiration exam demonstrates no definite acute process. Patchy bilateral perihi lar atelectasis favored over pneumonia correlate clinically.
--- NOTE | 2022-09-29 18:20 | XR ---
EXAMINATION TYPE: XR KUB DATE OF EXAM: 09/29/2022 6:08 PM INDICATION: Patient age:Female; 71 years old; Reason for study: abdominal pain; COMPARISON: Chest 02/21/2021 TECHNIQUE: One radiographic view of the abdomen was obtained. FINDINGS: Post fixation changes of lower lumbar spine. Hardware appears intact. Gastric lap band tubi ng present. Gastric lap band angle appears appropriately positioned. Multilevel disc degeneration kate nges of the spine. Gaseous distention of loops of large bowel are present The bowel gas pattern is no nspecific without dilated loops of small or large bowel. There is no evidence for organomegaly or pne umoperitoneum. The osseous structures are intact. Pelvic phleboliths are present. Fecal material a nd gas are demonstrated throughout the colon and rectum. IMPRESSION: Nonspecific bowel gas pattern without radiographic evidence for acute process.
--- NOTE | 2022-09-29 18:25 | ED ---
General Adult HPI - General Chief complaint: Abdominal Pain Stated complaint: Abdominal pain Time Seen by Provider: 09/29/22 17:57 Source: patient Mode of arrival: EMS - History of Present Illness Initial comments: Dictation was produced using [employer] dictation software. please excuse any grammatical, word or spelling errors. Chief Complaint: 71-year-old female presents with 2-3 days of abdominal pain History of Present Illness: 71-year-old female she has multiple abdominal history. Patient has had colovesicular fistula that was repaired 2 years ago at [facility]. She also has history of colon resection and lower abdominal surgical site hernia. Her last today she's had progressive abdominal pain and nausea. Denies any vomiting. No diarrhea. Denies any fever or constitutional symptoms. The ROS documented in this emergency department record has been reviewed and confirmed by me. Those systems with pertinent positive or negative responses have been documented in the HPI. All other systems are other negative and/or noncontributory. PHYSICAL EXAM: General Impression: Alert and oriented x3, not in acute distress HEENT: Normocephalic atraumatic, extra-ocular movements intact, pupils equal and reactive to light bilaterally, mucous membranes moist. Cardiovascular: Heart regular rate and rhythm Chest: Able to complete full sentences, no retractions, no tachypnea Abdomen: abdomen soft, palpable abdominal hernia to the supra umbilical area, non-distended, no organomegaly Musculoskeletal: Pulses present and equal in all extremities, no peripheral edema Motor: no focal deficits noted Neurological: CN II-XII grossly intact, no focal motor or sensory deficits noted Skin: Intact with no visualized rashes Psych: Normal affect and mood ED course: 71-year-old female presents to the emergency Department with abdominal pain. She has extensive abdominal history. Vital signs shows blood pressure 95/69. Rest of vital signs within acceptable limits. Physical examination shows hernia to the supra umbilical area. Patient was laid flat and hernia was reduced at the bedside. Nursing notes and chart review was performed Laboratory evaluation shows leukocytosis with a white count of 17.9 coag panel metabolic panel is unremarkable. Urinalysis suggestive of urinary tract infection. Chest x-ray and KUB shows nonspecific findings. Computed tomography scan ordered showing a mechanical large bowel obstruction at the anastomotic sarath gical site. Case is discussed with Dr. Underwood and Dr. Chapman who recommends patient be transferred to surgeon who performed the sigmoid resection. Spoke with Robin from [facility] transfer system. They spoke with Dr. Elder patient's primary surgeon. Accepting physician is Dr. Hahn at [facility]. My EKG interpretation: Ventricular rate 68, sinus rhythm,. 166, QRS 174, QTC 461. No IL prolongation, no QTC prolongation, no ST or T-wave changes noted. EKG compared to 06/24/2019 showing no changes. Overall, this EKG is unremarkable Critical Care: no Critical Care time: n/a - Related Data Home Medications Medication Instructions Recorded Confirmed Atorvastatin [Lipitor] 40 mg PO Q48H 10/13/14 04/26/21 Clopidogrel [Plavix] 75 mg PO DAILY 10/13/14 04/23/21 Furosemide [Lasix] 40 mg PO SUTUTHSA 10/13/14 04/26/21 Multivitamins, Thera [Multivitamin 1 tab PO DAILY 10/13/14 04/26/21 (formulary)] Pantoprazole Sodium [Protonix] 40 mg PO BID 10/13/14 04/26/21 allopurinoL [Zyloprim] 300 mg PO HS 10/13/14 04/26/21 Cholecalciferol [Vitamin D3 (25 5,000 unit PO DAILY 10/24/14 04/23/21 Mcg = 1000 Iu)] Aspirin EC [Ecotrin Low Dose] 81 mg PO DAILY 06/23/19 04/23/21 Atorvastatin [Lipitor] 80 mg PO Q48H 06/23/19 04/26/21 metOLazone [Zaroxolyn] 2.5 mg PO BRISCOE 06/23/19 04/26/21 Baclofen 5 - 10 mg PO HS 06/24/19 04/26/21 Canagliflozin [Invokana] 100 mg PO DAILY 06/24/19 04/26/21 Colchicine 0.6 mg PO BID PRN 06/24/19 04/26/21 Gabapentin [Neurontin] 300 mg PO TID 06/24/19 04/26/21 Insulin Aspart [NovoLOG] 4 units SQ PC-LUNCH 06/24/19 04/26/21 Insulin Aspart [NovoLOG] 22 unit SQ BID 06/24/19 04/26/21 Levothyroxine Sodium [Synthroid] 150 mcg PO DAILY 06/24/19 04/26/21 Nitroglycerin Sl Tabs [Nitrostat] 0.4 mg SL DIRECTED PRN 06/24/19 04/26/21 Nortriptyline HCl [Pamelor] 25 mg PO HS 06/24/19 04/26/21 Potassium Chloride ER [K-Dur 20] 20 mg PO SUTUTHSA 06/24/19 04/26/21 Zafirlukast [Accolate] 20 mg PO BID 06/24/19 04/26/21 metFORMIN HCL [Glucophage] 500 mg PO BID 06/24/19 04/26/21 Acetaminophen [Tylenol Arthritis] 1,300 mg PO DAILY PRN 07/04/20 04/26/21 Cannabidiol (Cbd) [Epidiolex] 1 dose TOPICAL DAILY PRN 07/04/20 04/26/21 Diclofenac Sodium [Voltaren Gel] 2 gram TOPICAL BID 07/04/20 04/26/21 Furosemide [Lasix] 60 mg PO MOWEFR PRN 07/04/20 04/26/21 HYDROcodone/APAP 5-325MG [[place] 1 tab PO TID PRN 07/04/20 04/26/21 5-325] Iron 28 mg PO Q48H 07/04/20 04/23/21 Loratadine [Claritin] 10 mg PO DAILY 07/04/20 04/26/21 Magnesium 400 mg PO HS 07/04/20 04/23/21 Potassium Chloride [Potassium 30 meq PO MOWEFR 07/04/20 04/26/21 Chloride ER] atenoloL 25 mg PO DAILY 07/04/20 04/26/21 Hyoscyamine Sulfate [Levsin] 0.125 mg PO Q4H PRN 04/23/21 04/26/21 Losartan [Cozaar] 25 mg PO HS 04/23/21 04/26/21 Ondansetron [Zofran] 4 mg PO Q8HR PRN 04/23/21 04/26/21 Semaglutide [Ozempic] 1 mg SQ BRISCOE 04/23/21 04/26/21 Vitamin B Complex 1 each PO DAILY 04/23/21 04/26/21 Allergies Allergy/AdvReac Type Severity Reaction Status Date / Time ceftriaxone [From Rocephin] Allergy Anaphylaxis Verified 09/29/22 17:23 ibuprofen [From Motrin] Allergy KIDNEY Verified 09/29/22 17:23 FAILURE Iodinated Contrast Media Allergy Rash/Hives Verified 09/29/22 17:23 [Iodinated Contrast Media - IV Dye] isoniazid Allergy RASH,WT Verified 09/29/22 17:23 GAIN,ELEV B/P,ELEV BLOOD SUGAR morphine Allergy Dyspnea Verified 09/29/22 17:23 venom-honey bee Allergy SWELLING, Verified 09/29/22 17:23 [bee venom (honey bee)] HIVES meperidine HCl [From Demerol] AdvReac Nausea & Verified 09/29/22 17:23 Vomiting SHRIMP Allergy Rash/Hives Uncoded 04/26/21 06:49 VACCINE PRESERVATIVES Allergy HIVES Uncoded 04/26/21 06:49 Review of Systems ROS Statement: Those systems with pertinent positive or pertinent negative responses have been documented in the HPI. ROS Other: All systems not noted in ROS Statement are negative. Past Medical History Past Medical History: Cancer, Diabetes Mellitus, Deep Vein Thrombosis (DVT), GERD/Reflux, Hyperlipidemia, Hypertension, Myocardial Infarction (AK), Osteoarthritis (OA), Pulmonary Embolus (PE), Renal Disease Additional Past Medical History / Comment(s): . Other HX: NEURAPATHY CRISTOPHER HANDS AND FEET,MITRAL VALVE PROLAPSE,VARICOSE VEINS,,KIDNEY STONES, Colorectal fistula 2019, INSULIN DEPENDENT , MELENOMA , CHRONIC KIDNEY DISEASE , Last Myocardial Infarction Date:: 2006 History of Any Multi-Drug Resistant Organisms: None Reported Past Surgical History: Appendectomy, Cholecystectomy, Heart Catheterization With Stent, Hysterectomy, Tonsillectomy Additional Past Surgical History / Comment(s): 10/24/14 RIGHT shoulder SURGERY, injection R middle finger. COLECTOMY R/T RUPTURED DIVERTICULI AND ABSCESS,LAB BAND 2007-FILL PRESENT TO SEE DR UNDERWOOD PRIOR TO OR TO HAVE REMOVED.,CARDIAC STENTS X2, REPAIR RT ACHILLES TENDON,CRISTOPHER CARPEL TUNNEL REPAIR,LT RADIAL HEAD PARTIALLY REMOVED W/ REPAIR,LAMINECTOMY L1-L4,FUSION L5- S1, TOTAL THYROIDECTOMY Past Anesthesia/Blood Transfusion Reactions: Postoperative Nausea & Vomiting (PONV) Additional Past Anesthesia/Blood Transfusion Reaction / Comment(s): PONV YEARS AGO WITH DEMEROL Date of Last Stent Placement:: 2006 Past Psychological History: No Psychological Hx Reported Smoking Status: Former smoker - Past Family History Father Family Medical History: Cancer, Deep Vein Thrombosis (DVT), Pulmonary Embolus Additional Family Medical History / Comment(s): SKIN CANCER Mother Family Medical History: Cancer, Deep Vein Thrombosis (DVT), Pulmonary Embolus Additional Family Medical History / Comment(s): SKIN CANCER Course Vital Signs 09/29/22 17:19 Temperature 97.2 F L Pulse Rate 71 Respiratory 18 Rate Blood Pressure 95/69 O2 Sat by Pulse 95 Oximetry Medical Decision Making - Lab Data Result diagrams: 09/29/22 17:49 09/29/22 17:49 Lab Results 09/29/22 09/29/22 09/29/22 Range/Units 17:49 17:49 17:49 WBC 17.9 H (3.8-10.6) k/uL RBC 5.28 (3.80-5.40) m/uL Hgb 16.8 H (11.4-16.0) gm/dL Hct 49.4 H (34.0-46.0) % MCV 93.5 (80.0-100.0) fL MCH 31.7 (25.0-35.0) pg MCHC 33.9 (31.0-37.0) g/dL RDW 15.4 (11.5-15.5) % Plt Count 301 (150-450) k/uL MPV 7.4 Neutrophils % 87 % Lymphocytes % 7 % Monocytes % 5 % Eosinophils % 1 % Basophils % 0 % Neutrophils # 15.5 H (1.3-7.7) k/uL Lymphocytes # 1.2 (1.0-4.8) k/uL Monocytes # 0.9 (0-1.0) k/uL Eosinophils # 0.1 (0-0.7) k/uL Basophils # 0.1 (0-0.2) k/uL Hypochromasia Slight PT 10.7 (9.0-12.0) sec INR 1.0 (<1.2) APTT 34.9 H (22.0-30.0) sec Sodium 137 (137-145) mmol/L Potassium 5.1 (3.5-5.1) mmol/L Chloride 100 (98-107) mmol/L Carbon Dioxide 26 (22-30) mmol/L Anion Gap 11 mmol/L BUN 29 H (7-17) mg/dL Creatinine 1.52 H (0.52-1.04) mg/dL Est GFR (CKD-EPI)AfAm 40 (>60 ml/min/1.73 sqM) Est GFR (CKD-EPI)NonAf 34 (>60 ml/min/1.73 sqM) Glucose 202 H (74-99) mg/dL Calcium 9.8 (8.4-10.2) mg/dL Total Bilirubin 0.9 (0.2-1.3) mg/dL AST 33 (14-36) U/L ALT 30 (4-34) U/L Alkaline Phosphatase 105 (38-126) U/L Troponin I (0.000-0.034) ng/mL Total Protein 7.5 (6.3-8.2) g/dL Albumin 4.4 (3.5-5.0) g/dL Amylase 132 H (30-110) U/L Lipase 88 (23-300) U/L Urine Color Urine Appearance (Clear) Urine pH (5.0-8.0) Ur Specific [place] (1.001-1.035) Urine Protein (Negative) Urine Glucose (UA) (Negative) Urine Ketones (Negative) Urine Blood (Negative) Urine Nitrite (Negative) Urine Bilirubin (Negative) Urine Urobilinogen (<2.0) mg/dL Ur Leukocyte Esterase (Negative) Urine RBC (0-5) /hpf Urine WBC (0-5) /hpf Urine WBC Clumps (None) /hpf Ur Squamous Epith Cells (0-4) /hpf Urine Bacteria (None) /hpf Hyaline Casts (0-2) /lpf Urine Mucus (None) /hpf 09/29/22 09/29/22 Range/Units 17:49 20:25 WBC (3.8-10.6) k/uL RBC (3.80-5.40) m/uL Hgb (11.4-16.0) gm/dL Hct (34.0-46.0) % MCV (80.0-100.0) fL MCH (25.0-35.0) pg MCHC (31.0-37.0) g/dL RDW (11.5-15.5) % Plt Count (150-450) k/uL MPV Neutrophils % % Lymphocytes % % Monocytes % % Eosinophils % % Basophils % % Neutrophils # (1.3-7.7) k/uL Lymphocytes # (1.0-4.8) k/uL Monocytes # (0-1.0) k/uL Eosinophils # (0-0.7) k/uL Basophils # (0-0.2) k/uL Hypochromasia PT (9.0-12.0) sec INR (<1.2) APTT (22.0-30.0) sec Sodium (137-145) mmol/L Potassium (3.5-5.1) mmol/L Chloride (98-107) mmol/L Carbon Dioxide (22-30) mmol/L Anion Gap mmol/L BUN (7-17) mg/dL Creatinine (0.52-1.04) mg/dL Est GFR (CKD-EPI)AfAm (>60 ml/min/1.73 sqM) Est GFR (CKD-EPI)NonAf (>60 ml/min/1.73 sqM) Glucose (74-99) mg/dL Calcium (8.4-10.2) mg/dL Total Bilirubin (0.2-1.3) mg/dL AST (14-36) U/L ALT (4-34) U/L Alkaline Phosphatase (38-126) U/L Troponin I <0.012 (0.000-0.034) ng/mL Total Protein (6.3-8.2) g/dL Albumin (3.5-5.0) g/dL Amylase (30-110) U/L Lipase (23-300) U/L Urine Color Yellow Urine Appearance Cloudy H (Clear) Urine pH 5.5 (5.0-8.0) Ur Specific [place] 1.016 (1.001-1.035) Urine Protein Trace H (Negative) Urine Glucose (UA) 3+ H (Negative) Urine Ketones Negative (Negative) Urine Blood Negative (Negative) Urine Nitrite Negative (Negative) Urine Bilirubin Negative (Negative) Urine Urobilinogen 2.0 (<2.0) mg/dL Ur Leukocyte Esterase Large H (Negative) Urine RBC 24 H (0-5) /hpf Urine WBC 52 H (0-5) /hpf Urine WBC Clumps Occasional H (None) /hpf Ur Squamous Epith Cells 3 (0-4) /hpf Urine Bacteria Many H (None) /hpf Hyaline Casts 29 H (0-2) /lpf Urine Mucus Rare H (None) /hpf Disposition Clinical Impression: Bowel obstruction Disposition: OTHER INSTITUTION NOT DEFINED Condition: Serious Referrals: Elizabeth Cristobal MD [Primary Care Provider] - 1-2 days Time of Disposition: 21:10 - Out of Hospital Transfer - Req. Specs Out of Hospital Transfer - Requested Specifics: Other Emergency Center ([facility]
[2022-09-29 18:27] LABS: Partial Thromboplastin Time 34.9 sec (22.0-30.0); Prothrombin Time 10.7 sec (9.0-12.0)
[2022-09-29 18:34] LABS: Basophils # (A) 0.1 k/uL (0-0.2); Basophils % (A) 0 %; Eosinophils # (A) 0.1 k/uL (0-0.7); Eosinophils % (A) 1 %; HCT 49.4 % (34.0-46.0); HGB 16.8 gm/dL (11.4-16.0); Hypochromasia Slight; Lymphocytes # (A) 1.2 k/uL (1.0-4.8); Lymphocytes % (A) 7 %; MCH 31.7 pg (25.0-35.0); MCHC 33.9 g/dL (31.0-37.0); MCV 93.5 fL (80.0-100.0); Mean Platelet Volume 7.4; Monocytes # (A) 0.9 k/uL (0-1.0); Monocytes % (A) 5 %; Neutrophils # (A) 15.5 k/uL (1.3-7.7); Neutrophils % (A) 87 %; Platelet Count 301 k/uL (150-450); RBC 5.28 m/uL (3.80-5.40); RDW 15.4 % (11.5-15.5); WBC 17.9 k/uL (3.8-10.6)
[2022-09-29 18:56] LABS: Albumin 4.4 g/dL (3.5-5.0); Calcium 9.8 mg/dL (8.4-10.2); Potassium 5.1 mmol/L (3.5-5.1); Total Bilirubin 0.9 mg/dL (0.2-1.3); Total Protein 7.5 g/dL (6.3-8.2)
--- NOTE | 2022-09-29 20:14 | CT ---
EXAMINATION TYPE: CT abdomen pelvis wo con DATE OF EXAM: 09/29/2022 COMPARISON: 06/08/2019 HISTORY: Hx of a colorectal fistula. Pt C/O severe abdomen pain, no bowel movement in [address] DLP: 1904.4 mGycm Automated exposure control for dose reduction was used. Images obtained from the diaphragm to the floor of the pelvis with no contrast. There is a 2 cm irregular infiltrate in the left lower lobe with some extension to the pleural surfac e and also present on the old exam of 02/21/2021. There is no pleural effusion. Heart size is normal. No pericardial effusion. There is gastric sling noted. Liver and spleen are intact. The bowel is not dilated. Gallbladder not clearly seen. No evidence of pancreatic mass. The stomach is intact. There is no adrenal mass. There are multiple bilateral renal cysts that measure up to 2.5 cm. No hydr onephrosis. No retroperitoneal adenopathy. There is umbilical hernia that has incarcerated portion of the anterior wall of the transverse colon. There are surgical clips at the rectosigmoid junction. Th ere is retained fecal material in the distal sigmoid colon. There is dilated large bowel with fluid l evels. The small bowel is not dilated. No free air. No ascites. Appendix not seen. No evidence of thi ckened appendix. There is metal artifact from posterior fusion surgery at L5-S1. There is some degenerative spurring a nd disc space narrowing and variable vacuum disc in the lumbar spine. No significant compression defo rmity. The pelvic ring is intact. The hip joints are intact. IMPRESSION: Dilated large bowel with fluid levels suggestive of mechanical large bowel obstruction. There is rosario sition at the surgery site of the sigmoid colon that could be a stricture. Large umbilical hernia in the midline contains anterior wall of the transverse colon and is not produ cing obstruction. Large bowel obstruction and the hernia appears new compared to CT scan of 06/08/2019 .
[2022-09-29] MEDS ORDERED: LEVOFLOXACIN 750MG-D5W PMX 750 MG in DEXTROSE/WATER 1 150ML.BAG IVPB STA (20:37)
[2022-09-29 20:53] LABS: Appearance,Urine Cloudy (Clear); Bacteria,Urine Many /hpf; Bilirubin,Urine Negative (Negative); Blood,Urine Negative (Negative); Color,Urine Yellow; Glucose,Urine (UA) 3+ (Negative); Hyaline Casts,Urine 29 /lpf (0-2); Ketones,Urine Negative (Negative); Leukocyte Esterase,Urine Large (Negative); Mucus,Urine Rare /hpf; Nitrite,Urine Negative (Negative); PH, Urine 5.5 (5.0-8.0); Protein,Urine Trace (Negative); RBC,Urine 24 /hpf (0-5); Specific Gravity,Urine 1.016 (1.001-1.035); Squamous Epithelial Cell,Urine 3 /hpf (0-4); WBC,Urine 52 /hpf (0-5)
[2022-09-29 22:23] VITALS: BP 115/70; PULSE 76; RESP 20; TEMP 97.6
== END 2022-09-29 22:35 | disposition other institution (70) ==
LOC: EC 17:07
DX: K56.609 Unspecified intestinal obstruction, unspecified as to partial versus complete obstruction (principal); E11.9 Type 2 diabetes mellitus without complications; Z86.718 Personal history of other venous thrombosis and embolism; I25.2 Old myocardial infarction; K21.9 Gastro-esophageal reflux disease without esophagitis; M19.90 Unspecified osteoarthritis, unspecified site; E78.5 Hyperlipidemia, unspecified; I12.9 Hypertensive chronic kidney disease with stage 1 through stage 4 chronic kidney disease, or unspecified chronic kidney disease; N18.9 Chronic kidney disease, unspecified; Z90.49 Acquired absence of other specified parts of digestive tract; Z87.891 Personal history of nicotine dependence; Z88.1 Allergy status to other antibiotic agents; Z91.041 Radiographic dye allergy status; Z91.030 Bee allergy status; Z91.013 Allergy to seafood; Z88.7 Allergy status to serum and vaccine; Z79.890 Hormone replacement therapy; Z79.84 Long term (current) use of oral hypoglycemic drugs; Z79.82 Long term (current) use of aspirin; Z79.4 Long term (current) use of insulin; Z79.899 Other long term (current) drug therapy
CPT/HCPCS: 36415; 93005; 80053; 82150; 83690; 84484; 85025; 85610; 85730; 81001; 87086; 87077; 87186; 71045; 74018; 74176; 99285; 96365; 96375 ×3; J1200; J2930; J1956

== ENCOUNTER 2022-10-09 08:34 | Emergency (ER) | payer MEDICARE, OTHER ==
[2022-10-09 08:40] VITALS: BP 110/77; PULSE 70; RESP 18; TEMP 97.3
[2022-10-09] MEDS ORDERED: PANTOPRAZOLE 40 MG/10 ML VIAL IVP STA (08:42)
[2022-10-09] MEDS ORDERED: SODIUM CHLORIDE 0.9% 1,000 ML IV STA ×3 (08:42→10:24)
--- NOTE | 2022-10-09 09:00 | ED ---
General Adult HPI - General Chief complaint: Nausea/Vomiting/Diarrhea Stated complaint: nausea, vomiting Time Seen by Provider: 10/09/22 08:42 Source: patient, EMS, RN notes reviewed, old records reviewed Mode of arrival: EMS Limitations: no limitations - History of Present Illness Initial comments: Patient is a 71-year-old female with past medical history remarkable for diabetes, cancer, hypertension, CAD, colovesical fistula, with history of colon resection and abdominal hernia status post surgery who was seen last week for abdominal pain and transferred to [facility] for a mechanical large bowel obstruction at the surgical site. She states he performed a dilation at [facility] and she was discharged home last Thursday. She states she has not had a bowel movement since then. Believe she is constipated. For the last few days she has been having worsening lower quadrant abdominal pain as well as periumbilical pain. Has been having nausea as well as multiple episodes of a dark brown emesis. No blood in the emesis. No chest pain or shortness of breath. States she threw up shortly prior to arrival and this did improve her abdominal pain. Denies any urinary complaints. Has no other acute complaints at this time. Presents for further evaluation at this time. Is concerned she still may have an obstruction. - Related Data Home Medications Medication Instructions Recorded Confirmed Atorvastatin [Lipitor] 40 mg PO Q48H 10/13/14 04/26/21 Clopidogrel [Plavix] 75 mg PO DAILY 10/13/14 04/23/21 Furosemide [Lasix] 40 mg PO SUTUTHSA 10/13/14 04/26/21 Multivitamins, Thera [Multivitamin 1 tab PO DAILY 10/13/14 04/26/21 (formulary)] Pantoprazole Sodium [Protonix] 40 mg PO BID 10/13/14 04/26/21 allopurinoL [Zyloprim] 300 mg PO HS 10/13/14 04/26/21 Cholecalciferol [Vitamin D3 (25 5,000 unit PO DAILY 10/24/14 04/23/21 Mcg = 1000 Iu)] Aspirin EC [Ecotrin Low Dose] 81 mg PO DAILY 06/23/19 04/23/21 Atorvastatin [Lipitor] 80 mg PO Q48H 06/23/19 04/26/21 metOLazone [Zaroxolyn] 2.5 mg PO BRISCOE 06/23/19 04/26/21 Baclofen 5 - 10 mg PO HS 06/24/19 04/26/21 Canagliflozin [Invokana] 100 mg PO DAILY 06/24/19 04/26/21 Colchicine 0.6 mg PO BID PRN 06/24/19 04/26/21 Gabapentin [Neurontin] 300 mg PO TID 06/24/19 04/26/21 Insulin Aspart [NovoLOG] 4 units SQ PC-LUNCH 06/24/19 04/26/21 Insulin Aspart [NovoLOG] 22 unit SQ BID 06/24/19 04/26/21 Levothyroxine Sodium [Synthroid] 150 mcg PO DAILY 06/24/19 04/26/21 Nitroglycerin Sl Tabs [Nitrostat] 0.4 mg SL DIRECTED PRN 06/24/19 04/26/21 Nortriptyline HCl [Pamelor] 25 mg PO HS 06/24/19 04/26/21 Potassium Chloride ER [K-Dur 20] 20 mg PO SUTUTHSA 06/24/19 04/26/21 Zafirlukast [Accolate] 20 mg PO BID 06/24/19 04/26/21 metFORMIN HCL [Glucophage] 500 mg PO BID 06/24/19 04/26/21 Acetaminophen [Tylenol Arthritis] 1,300 mg PO DAILY PRN 07/04/20 04/26/21 Cannabidiol (Cbd) [Epidiolex] 1 dose TOPICAL DAILY PRN 07/04/20 04/26/21 Diclofenac Sodium [Voltaren Gel] 2 gram TOPICAL BID 07/04/20 04/26/21 Furosemide [Lasix] 60 mg PO MOWEFR PRN 07/04/20 04/26/21 HYDROcodone/APAP 5-325MG [[place] 1 tab PO TID PRN 07/04/20 04/26/21 5-325] Iron 28 mg PO Q48H 07/04/20 04/23/21 Loratadine [Claritin] 10 mg PO DAILY 07/04/20 04/26/21 Magnesium 400 mg PO HS 07/04/20 04/23/21 Potassium Chloride [Potassium 30 meq PO MOWEFR 07/04/20 04/26/21 Chloride ER] atenoloL 25 mg PO DAILY 07/04/20 04/26/21 Hyoscyamine Sulfate [Levsin] 0.125 mg PO Q4H PRN 04/23/21 04/26/21 Losartan [Cozaar] 25 mg PO HS 04/23/21 04/26/21 Ondansetron [Zofran] 4 mg PO Q8HR PRN 04/23/21 04/26/21 Semaglutide [Ozempic] 1 mg SQ BRISCOE 04/23/21 04/26/21 Vitamin B Complex 1 each PO DAILY 04/23/21 04/26/21 Allergies Allergy/AdvReac Type Severity Reaction Status Date / Time ceftriaxone [From Rocephin] Allergy Anaphylaxis Verified 09/29/22 17:23 Cephalosporins Allergy Anaphylaxis Verified 10/09/22 09:01 ibuprofen [From Motrin] Allergy KIDNEY Verified 09/29/22 17:23 FAILURE Iodinated Contrast Media Allergy Rash/Hives Verified 09/29/22 17:23 [Iodinated Contrast Media - IV Dye] isoniazid Allergy RASH,WT Verified 09/29/22 17:23 GAIN,ELEV B/P,ELEV BLOOD SUGAR morphine Allergy Dyspnea Verified 09/29/22 17:23 Penicillins Allergy Anaphylaxis Verified 10/09/22 09:02 venom-honey bee Allergy SWELLING, Verified 09/29/22 17:23 [bee venom (honey bee)] HIVES meperidine HCl [From Demerol] AdvReac Nausea & Verified 09/29/22 17:23 Vomiting SHRIMP Allergy Rash/Hives Uncoded 04/26/21 06:49 VACCINE PRESERVATIVES Allergy HIVES Uncoded 04/26/21 06:49 Review of Systems ROS Statement: Those systems with pertinent positive or pertinent negative responses have been documented in the HPI. Review of Systems: CONST: Denies fever EYES: Denies blurry vision ENT: Denies nasal congestion C/V: Denies Chest pain RESP: Denies shortness of breath GI: Endorses abdominal pain : Denies dysuria SKIN: Denies rash. MSK: Denies joint pain. NEURO: Denies headache ROS Other: All systems not noted in ROS Statement are negative. Past Medical History Past Medical History: Cancer, Diabetes Mellitus, Deep Vein Thrombosis (DVT), GERD/Reflux, Hyperlipidemia, Hypertension, Myocardial Infarction (VT), Osteoarthritis (OA), Pulmonary Embolus (PE), Renal Disease Additional Past Medical History / Comment(s): . Other HX: NEURAPATHY CRISTOPHER HANDS AND FEET,MITRAL VALVE PROLAPSE,VARICOSE VEINS,,KIDNEY STONES, Colorectal fistula 2019, INSULIN DEPENDENT , MELENOMA , CHRONIC KIDNEY DISEASE , Last Myocardial Infarction Date:: 2006 History of Any Multi-Drug Resistant Organisms: None Reported Past Surgical History: Appendectomy, Cholecystectomy, Heart Catheterization With Stent, Hysterectomy, Tonsillectomy Additional Past Surgical History / Comment(s): 10/24/14 RIGHT shoulder SURGERY, injection R middle finger. COLECTOMY R/T RUPTURED DIVERTICULI AND ABSCESS,LAB BAND 2007-FILL PRESENT TO SEE DR FREGOSO PRIOR TO OR TO HAVE REMOVED.,CARDIAC STENTS X2, REPAIR RT ACHILLES TENDON,CRISTOPHER CARPEL TUNNEL REPAIR,LT RADIAL HEAD PARTIALLY REMOVED W/ REPAIR,LAMINECTOMY L1-L4,FUSION L5- S1, TOTAL THYROIDECTOMY Past Anesthesia/Blood Transfusion Reactions: Postoperative Nausea & Vomiting (PONV) Additional Past Anesthesia/Blood Transfusion Reaction / Comment(s): PONV YEARS AGO WITH DEMEROL Date of Last Stent Placement:: 2006 Past Psychological History: No Psychological Hx Reported Smoking Status: Former smoker - Past Family History Father Family Medical History: Cancer, Deep Vein Thrombosis (DVT), Pulmonary Embolus Additional Family Medical History / Comment(s): SKIN CANCER Mother Family Medical History: Cancer, Deep Vein Thrombosis (DVT), Pulmonary Embolus Additional Family Medical History / Comment(s): SKIN CANCER General Exam - General Exam Comments Initial Comments: General: Appears in mild distress secondary to abdominal discomfort. HEAD: Normal with no signs of head trauma. EYES: PERRLA, EOMI, conjunctiva normal, no discharge. ENT: Hearing grossly intact, normal oropharynx. RESPIRATORY: Clear breath sounds bilaterally. No wheezes, rales, or rhonchi. C/V: Regular rate and rhythm. S1 and S2 auscultated, no edema, peripheral pulses 2+ and intact throughout ABD: Abdomen is soft, slightly distended but patient states it is improved. Tender to palpation primarily in the left lower quadrant also periumbilically. Patient does have a easily reducible anterior wall hernia. No guarding. No rebound tenderness or peritoneal signs. EXT: Normal range of motion, no obvious deformity SKIN: No rashes or lesions observed on exposed skin. NEURO: Alert and oriented 4. Limitations: no limitations Course Vital Signs 10/09/22 08:35 Temperature 97.3 F L Pulse Rate 70 Respiratory 18 Rate Blood Pressure 110/77 O2 Sat by Pulse 99 Oximetry Medical Decision Making - Medical Decision Making Based on the patient's presentation and physical exam, I'm concerned for intra-abdominal process is occurring cause of her complaints. I strong suspicion for another mechanical bowel obstruction, however cannot rule out other etiology at this time. We will obtain abdominal laboratory studies, screening EKG, abdominal imaging. She was in agreement this plan. She refuses analgesia medications at this time. She received Zofran prior to arrival. I will administered IV Protonix as well as a 1 L fluid bolus. We did discuss the possibility of transfer which she would like if she does require surgery as her surgeon is through [place]. The surgeon's name is Dr. Stanley. I do believe this is reasonable. Vital signs within acceptable limits. Patient's laboratory studies are remarkable for a leukocytosis of 25. Patient has an AK I with an elevated BUN at 34 and creatinine of 2.19 likely secondary to dehydration, an elevated lactic acid of 2.8. Urine studies are pending at this time. Chest x-ray as interpreted by myself reveals no evidence of acute cardio pulmonary process, intra-abdominal free air. CT abdomen and pelvis without contrast as interpreted myself shows findings suggestive of a small bowel obstruction. Radiology concurs with this. She does have small bowel located in her ventral wall hernia but no evidence of dilation or obstruction there. This fits with the easily reduced hernia. Patient appears to have a small bowel obstruction. I updated the patient and answered all questions that she had. She was in agreement with this plan. She is made nothing by mouth. She was started on Flagyl and Levaquin for antibiotics. She'll be given an additional 1 L fluid bolus and started on maintenance fluids. As previously discussed, patient would like to be transferred to where her surgeon is located for further care. This is at [facility]. Surgeon is Dr. Sebastian. I did reach out to them and they accepted the patient. Accepting physician is Dr. Gomez. I did discuss her and the patient on an NG tube and she was amenable. We'll attempt placement prior to patient being transferred.Patient failed NG tube placement. She declines further attempts at this time. Patient will be transferred in serious condition. - Lab Data Result diagrams: 10/09/22 08:58 10/09/22 08:58 Lab Results 10/09/22 10/09/22 10/09/22 Range/Units 08:50 08:55 08:58 WBC 25.0 H (3.8-10.6) k/uL RBC 5.10 (3.80-5.40) m/uL Hgb 15.5 (11.4-16.0) gm/dL Hct 46.0 (34.0-46.0) % MCV 90.1 (80.0-100.0) fL MCH 30.5 (25.0-35.0) pg MCHC 33.8 (31.0-37.0) g/dL RDW 15.8 H (11.5-15.5) % Plt Count 393 (150-450) k/uL MPV 7.5 Neutrophils % 85 % Lymphocytes % 9 % Monocytes % 4 % Eosinophils % 0 % Basophils % 0 % Neutrophils # 21.2 H (1.3-7.7) k/uL Lymphocytes # 2.3 (1.0-4.8) k/uL Monocytes # 1.0 (0-1.0) k/uL Eosinophils # 0.1 (0-0.7) k/uL Basophils # 0.1 (0-0.2) k/uL PT (9.0-12.0) sec INR (<1.2) APTT (22.0-30.0) sec Sodium (137-145) mmol/L Potassium (3.5-5.1) mmol/L Chloride (98-107) mmol/L Carbon Dioxide (22-30) mmol/L Anion Gap mmol/L BUN (7-17) mg/dL Creatinine (0.52-1.04) mg/dL Est GFR (CKD-EPI)AfAm (>60 ml/min/1.73 sqM) Est GFR (CKD-EPI)NonAf (>60 ml/min/1.73 sqM) Glucose (74-99) mg/dL Lactic Ac Sepsis Rflx Plasma Lactic Acid Steve (0.7-2.0) mmol/L Calcium (8.4-10.2) mg/dL Total Bilirubin (0.2-1.3) mg/dL AST (14-36) U/L ALT (4-34) U/L Alkaline Phosphatase (38-126) U/L Total Protein (6.3-8.2) g/dL Albumin (3.5-5.0) g/dL Amylase (30-110) U/L Lipase (23-300) U/L Urine Color Urine Appearance (Clear) Urine pH (5.0-8.0) Ur Specific [place] (1.001-1.035) Urine Protein (Negative) Urine Glucose (UA) (Negative) Urine Ketones (Negative) Urine Blood (Negative) Urine Nitrite (Negative) Urine Bilirubin (Negative) Urine Urobilinogen (<2.0) mg/dL Ur Leukocyte Esterase (Negative) Urine RBC (0-5) /hpf Urine WBC (0-5) /hpf Ur Squamous Epith Cells (0-4) /hpf Hyaline Casts (0-2) /lpf Urine Mucus (None) /hpf Coronavirus (PCR) (Not Detectd) Blood Type A Negative Blood Type Confirm A Negative Blood Type Recheck No Previous Record Bld Type Recheck Status CABO Indicated Antibody Screen NEGATIVE Spec Expiration Date 10/12/2022 - 235410/09/22 10/09/22 10/09/22 Range/Units 08:58 08:58 08:58 WBC (3.8-10.6) k/uL RBC (3.80-5.40) m/uL Hgb (11.4-16.0) gm/dL Hct (34.0-46.0) % MCV (80.0-100.0) fL MCH (25.0-35.0) pg MCHC (31.0-37.0) g/dL RDW (11.5-15.5) % Plt Count (150-450) k/uL MPV Neutrophils % % Lymphocytes % % Monocytes % % Eosinophils % % Basophils % % Neutrophils # (1.3-7.7) k/uL Lymphocytes # (1.0-4.8) k/uL Monocytes # (0-1.0) k/uL Eosinophils # (0-0.7) k/uL Basophils # (0-0.2) k/uL PT 10.0 (9.0-12.0) sec INR 0.9 (<1.2) APTT 29.1 (22.0-30.0) sec Sodium 136 L (137-145) mmol/L Potassium 5.0 (3.5-5.1) mmol/L Chloride 95 L (98-107) mmol/L Carbon Dioxide 26 (22-30) mmol/L Anion Gap 15 mmol/L BUN 34 H (7-17) mg/dL Creatinine 2.19 H (0.52-1.04) mg/dL Est GFR (CKD-EPI)AfAm 25 (>60 ml/min/1.73 sqM) Est GFR (CKD-EPI)NonAf 22 (>60 ml/min/1.73 sqM) Glucose 198 H (74-99) mg/dL Lactic Ac Sepsis Rflx Plasma Lactic Acid Steve 2.8 H* (0.7-2.0) mmol/L Calcium 9.4 (8.4-10.2) mg/dL Total Bilirubin 1.0 (0.2-1.3) mg/dL AST 38 H (14-36) U/L ALT 42 H (4-34) U/L Alkaline Phosphatase 94 (38-126) U/L Total Protein 7.6 (6.3-8.2) g/dL Albumin 4.5 (3.5-5.0) g/dL Amylase 73 (30-110) U/L Lipase 294 (23-300) U/L Urine Color Urine Appearance (Clear) Urine pH (5.0-8.0) Ur Specific [place] (1.001-1.035) Urine Protein (Negative) Urine Glucose (UA) (Negative) Urine Ketones (Negative) Urine Blood (Negative) Urine Nitrite (Negative) Urine Bilirubin (Negative) Urine Urobilinogen (<2.0) mg/dL Ur Leukocyte Esterase (Negative) Urine RBC (0-5) /hpf Urine WBC (0-5) /hpf Ur Squamous Epith Cells (0-4) /hpf Hyaline Casts (0-2) /lpf Urine Mucus (None) /hpf Coronavirus (PCR) (Not Detectd) Blood Type Blood Type Confirm Blood Type Recheck Bld Type Recheck Status Antibody Screen Spec Expiration Date 10/09/22 10/09/22 10/09/22 Range/Units 08:58 09:34 11:09 WBC (3.8-10.6) k/uL RBC (3.80-5.40) m/uL Hgb (11.4-16.0) gm/dL Hct (34.0-46.0) % MCV (80.0-100.0) fL MCH (25.0-35.0) pg MCHC (31.0-37.0) g/dL RDW (11.5-15.5) % Plt Count (150-450) k/uL MPV Neutrophils % % Lymphocytes % % Monocytes % % Eosinophils % % Basophils % % Neutrophils # (1.3-7.7) k/uL Lymphocytes # (1.0-4.8) k/uL Monocytes # (0-1.0) k/uL Eosinophils # (0-0.7) k/uL Basophils # (0-0.2) k/uL PT (9.0-12.0) sec INR (<1.2) APTT (22.0-30.0) sec Sodium (137-145) mmol/L Potassium (3.5-5.1) mmol/L Chloride (98-107) mmol/L Carbon Dioxide (22-30) mmol/L Anion Gap mmol/L BUN (7-17) mg/dL Creatinine (0.52-1.04) mg/dL Est GFR (CKD-EPI)AfAm (>60 ml/min/1.73 sqM) Est GFR (CKD-EPI)NonAf (>60 ml/min/1.73 sqM) Glucose (74-99) mg/dL Lactic Ac Sepsis Rflx Y Plasma Lactic Acid Steve (0.7-2.0) mmol/L Calcium (8.4-10.2) mg/dL Total Bilirubin (0.2-1.3) mg/dL AST (14-36) U/L ALT (4-34) U/L Alkaline Phosphatase (38-126) U/L Total Protein (6.3-8.2) g/dL Albumin (3.5-5.0) g/dL Amylase (30-110) U/L Lipase (23-300) U/L Urine Color Yellow Urine Appearance Cloudy H (Clear) Urine pH 5.0 (5.0-8.0) Ur Specific [place] 1.021 (1.001-1.035) Urine Protein 1+ H (Negative) Urine Glucose (UA) 4+ H (Negative) Urine Ketones Negative (Negative) Urine Blood Negative (Negative) Urine Nitrite Negative (Negative) Urine Bilirubin Negative (Negative) Urine Urobilinogen 2.0 (<2.0) mg/dL Ur Leukocyte Esterase Small H (Negative) Urine RBC 3 (0-5) /hpf Urine WBC 6 H (0-5) /hpf Ur Squamous Epith Cells 9 H (0-4) /hpf Hyaline Casts 77 H (0-2) /lpf Urine Mucus Occasional H (None) /hpf Coronavirus (PCR) Not Detected (Not Detectd) Blood Type Blood Type Confirm Blood Type Recheck Bld Type Recheck Status Antibody Screen Spec Expiration Date - EKG Data -: EKG Interpreted by Me EKG Comments: 12-lead Electrocardiogram Interpretation Note EKG was reviewed and interpreted by myself. 12-lead ECG performed at 0947 is interpreted by me as revealing normal sinus rhythm at a rate of 80 beats per minute. [place] is normal. VA interval is 161 ms, QRS duration is 169 ms, QTc is 482 ms. Patient does have a right bundle-branch block. Chronic T wave inversions in multiple leads and chronic atypical morphology that are seen on prior EKGs from 09/29/2022.. There were no acute ST or T wave abnormalities to suggest myocardial ischemia or injury. R wave progression across the precordium was satisfactory. By my interpretation this EKG is non-diagnostic for acute ischemia. No significant change when compared with EKG from 10/09/2022. Critical Care Time Critical Care Time: Yes Total Critical Care Time: 35 Critical Care Time: Upon my evaluation, this patient had a high probability of imminent or life- threatening deterioration due to small bowel obstruction, transfer, CHENCHO which required my direct attention, intervention, and personal management. I have personally provided 35 minutes of critical care time exclusive of time spent on separately billable procedures. Time includes review of laboratory data, radiology results, discussion with consultants, and monitoring for potential decompensation. Interventions were performed as documented in my note. Disposition Clinical Impression: Small bowel obstruction, CHENCHO (acute kidney injury), Nausea and vomiting Disposition: OTHER INSTITUTION NOT DEFINED Condition: Serious Referrals: Elizabeth Cristobal MD [Primary Care Provider] - 1-2 days Time of Disposition: 10:20 - Out of Hospital Transfer - Req. Specs Out of Hospital Transfer - Requested Specifics: Other Emergency Center (Transfer to [facility] per her request for continuity of care with her surgeon for SBO.)
[2022-10-09 09:20] LABS: Basophils # (A) 0.1 k/uL (0-0.2); Basophils % (A) 0 %; Eosinophils # (A) 0.1 k/uL (0-0.7); Eosinophils % (A) 0 %; HGB 15.5 gm/dL (11.4-16.0); Lymphocytes # (A) 2.3 k/uL (1.0-4.8); Lymphocytes % (A) 9 %; MCH 30.5 pg (25.0-35.0); MCHC 33.8 g/dL (31.0-37.0); MCV 90.1 fL (80.0-100.0); Mean Platelet Volume 7.5; Monocytes % (A) 4 %; Neutrophils # (A) 21.2 k/uL (1.3-7.7); Neutrophils % (A) 85 %; Platelet Count 393 k/uL (150-450); RDW 15.8 % (11.5-15.5)
[2022-10-09] MEDS ORDERED: ONDANSETRON 4 MG/2 ML VIAL IVP STA (09:23)
[2022-10-09 09:28] LABS: INR 0.9 (<1.2); Partial Thromboplastin Time 29.1 sec (22.0-30.0)
[2022-10-09 09:34] LABS: Albumin 4.5 g/dL (3.5-5.0); Calcium 9.4 mg/dL (8.4-10.2); Total Protein 7.6 g/dL (6.3-8.2)
--- NOTE | 2022-10-09 09:41 | XR ---
EXAMINATION TYPE: XR chest 1V portable DATE OF EXAM: 10/09/2022 COMPARISON: 09/29/2022 INDICATION: Upright abdomen pain nausea vomiting TECHNIQUE: Single frontal view of the chest is obtained. FINDINGS: The heart size is normal. The pulmonary vasculature is normal. The lungs are clear. There is elevation of the right diaphragm. IMPRESSION: 1. No acute pulmonary process.
[2022-10-09] MEDS ORDERED: LEVOFLOXACIN 750MG-D5W PMX 750 MG in DEXTROSE/WATER 1 150ML.BAG IVPB STA (09:55)
[2022-10-09] MEDS ORDERED: metroNIDAZOLE-NS PMX 500 MG in SALINE 1 100ML.BAG IVPB STA (09:55)
--- NOTE | 2022-10-09 10:10 | CT ---
EXAMINATION TYPE: CT abdomen pelvis wo con CT DLP: 1900.2 mGycm, Automated exposure control for dose reduction was used. DATE OF EXAM: 10/09/2022 9:22 AM COMPARISON: CT abdomen pelvis most recent from 02/24/2022. CLINICAL INDICATION:Female, 71 years old with history of abd pain, concern for bowel obstruction; abd pain TECHNIQUE: Axial CT of the abdomen and pelvis. Sagittal and coronal reformats were created on a [employer]™ workstation. Contrast used:None Oral contrast used: without Oral Contrast FINDINGS: LOWER CHEST: Unremarkable ABDOMEN LIVER: Unremarkable GALLBLADDER AND BILE DUCTS: The gallbladder is surgically absent. PANCREAS: Unremarkable. SPLEEN: Unremarkable. ADRENAL GLANDS: Unremarkable. KIDNEYS AND URETERS: No evidence of hydronephrosis or renal calculus. Bilateral renal cysts. PELVIS BLADDER: Unremarkable REPRODUCTIVE: Unremarkable. ABDOMEN & PELVIS STOMACH AND BOWEL: Scattered loops of dilated small bowel are present throughout the abdomen with rel ative nondistention of the distal colon. Small bowel is dilated measuring up to 4.3 cm. No definitive transition point is visualized there is gradual transition on series 202 image 47 . There is stool s een within the cecum and throughout the colon. Gastric lap band present. Gastric lap band appears in appropriate position. PERITONEUM: No evidence of pneumoperitoneum or free fluid. VASCULATURE: No evidence of aortic aneurysm. MUSCULOSKELETAL: No acute osseous abnormalities, fixation hardware to the lower lumbar spine. There i s grade 2 anterolisthesis of L5 on S1. Fixation of L5 and S1 is present. There is multilevel disc deg eneration with sclerosis endplate changes and osteophytes. LYMPH NODES: No gross evidence for lymphadenopathy. SOFT TISSUE/ABDOMINAL WALL: Ventral wall hernia containing loop of colon. No evidence of wall thicken ing or angulation. IMPRESSION: 1. Dilated loops of small bowel with relative nondistention of the distal small bowel concerning for partial versus early complete small bowel obstruction. Consider dedicated small bowel follow-through throughout complete obstruction. 2. Ventral wall hernia containing loop of colon. No evidence of strength dilation. 3. Gastric lap band in appropriate position
[2022-10-09 11:28] LABS: Appearance,Urine Cloudy (Clear); Bilirubin,Urine Negative (Negative); Blood,Urine Negative (Negative); Color,Urine Yellow; Glucose,Urine (UA) 4+ (Negative); Hyaline Casts,Urine 77 /lpf (0-2); Ketones,Urine Negative (Negative); Leukocyte Esterase,Urine Small (Negative); Mucus,Urine Occasional /hpf; Nitrite,Urine Negative (Negative); Protein,Urine 1+ (Negative); RBC,Urine 3 /hpf (0-5); Specific Gravity,Urine 1.021 (1.001-1.035); Squamous Epithelial Cell,Urine 9 /hpf (0-4); WBC,Urine 6 /hpf (0-5)
== END 2022-10-09 12:01 | disposition other institution (70) ==
LOC: EC 08:34
DX: K56.609 Unspecified intestinal obstruction, unspecified as to partial versus complete obstruction (principal); N17.9 Acute kidney failure, unspecified; R11.2 Nausea with vomiting, unspecified; E11.22 Type 2 diabetes mellitus with diabetic chronic kidney disease; E78.5 Hyperlipidemia, unspecified; I12.9 Hypertensive chronic kidney disease with stage 1 through stage 4 chronic kidney disease, or unspecified chronic kidney disease; I25.10 Atherosclerotic heart disease of native coronary artery without angina pectoris; I25.2 Old myocardial infarction; K21.9 Gastro-esophageal reflux disease without esophagitis; M19.90 Unspecified osteoarthritis, unspecified site; N18.9 Chronic kidney disease, unspecified; Z87.891 Personal history of nicotine dependence; Z79.4 Long term (current) use of insulin; Z79.82 Long term (current) use of aspirin; Z79.84 Long term (current) use of oral hypoglycemic drugs; Z79.899 Other long term (current) drug therapy; Z88.0 Allergy status to penicillin; Z88.1 Allergy status to other antibiotic agents; Z88.5 Allergy status to narcotic agent; Z88.6 Allergy status to analgesic agent; Z91.030 Bee allergy status; Z88.8 Allergy status to other drugs, medicaments and biological substances; Z20.822 Contact with and (suspected) exposure to COVID-19
CPT/HCPCS: 36415; 93005; 86900; 86901; 80053; 82150; 83605; 83690; 85025; 85610; 85730; 86850; 81001; 87040; 87635; 71045; 74176; 99291; 96365; 96366 ×2; 96375 ×2; 96361; J2405; J1956; C9113

== ENCOUNTER → 2023-02-12 | Outpatient (CLI) | payer MEDICARE, OTHER ==
--- NOTE | 2023-02-12 11:17 | BD ---
EXAMINATION TYPE: Axial Bone Density DATE OF EXAM: 02/12/2023 CLINICAL HISTORY: 72 year old Female. ICD-10 CODE: Z78.0 POST MENOPAUSAL SYMPTOMS Height: 66 Weight: 280.0 FRAX RISK QUESTIONS: Alcohol (3 or more units per day): no Family History (Parent hip fracture): no Glucocorticoids (More than 3mos): no (Ex: prednisone, prednisolone, methylprednisolone, dexamethasone, and hydrocortisone). History of Fracture in Adulthood: yes Secondary Osteoporosis: 1. Type 1 Diabetes: no 2. Hyperthyroidism: no 3. Menopause before 45: yes 4. Malnutrition: yes 5. Chronic liver disease: no Rheumatoid Arthritis: no Current Tobacco Use: no RISK FACTORS HISTORY OF: Surgery to Spine/Hip(right/left)/Wrist (right/left): lumbar spine When: 2000 Family History of Osteoporosis: no Diet low in dairy products/other sources of calcium: no Postmenopausal woman: yes Lost more than 2 inches in height since high school: yes MEDICATIONS: Thyroid Medications: synthroid How Long: since 2016 EXAM MEASUREMENTS: Bone mineral densitometry was performed using the [employer]. Bone mineral density about the R hip (g/cm2): 0.922 Bone mineral density about the L hip (g/cm2): 0.999 T Score values are as follows: -----R Neck: -0.9 -----L Neck: -0.2 -----R Total: -0.7 -----L Total: -0.1 Z Score values are as follows: -----R Neck: 0.1 -----L Neck: 0.8 -----R Total: 0.1 -----L Total: 0.7 Bone mineral density : baseline Bone mineral density about the L Wrist (g/cm2): 0.398 T Score values are as follows: -----Dist. R+U: -2.4 -----Prox. R+U: -4.3 -----Radius total: -4.6 Z Score values are as follows: -----Dist. R+U: -0.4 -----Prox. R+U: -2.3 -----Radius total: -2.6 Bone mineral density : baseline FRAX%s: The graph provided illustrates a 12.1% chance for a major osteoporotic fx and a 1.2% chance f or the hips probability for fx in 10 years time. IMPRESSION: Osteoporosis (T Score less than -2.5). There is increased fracture risk and therapy is usually indicated based on age. Re-Screen 1-2 years. NOTE: T-SCORE=SD OF THE YOUNG ADULT MEAN.
--- NOTE | 2023-02-13 09:32 | MM ---
Reason for Exam: Screening (asymptomatic). Last mammogram was performed 1 year(s) and 1 month(s) ago. Patient History: Menarche at age 9. First Full-Term at age 28. Left ovary removed at age 31. Right ovary removed at age 40. Hysterectomy at age 31. Postmenopausal. Patient has history of breast feeding. Risk Values: Sybil 5 year model risk: 2.1%. NCI Lifetime model risk: 5.6%. Prior Study Comparison: 10/11/2019 Bilateral Screening Mammogram, [facility]. 12/18/2020 Bilateral Screening Mammogram, [facility]. 12/26/2021 Bilateral Screening Mammogram, [facility]. Tissue Density: There are scattered fibroglandular densities. Findings: Analyzed By CAD. There are benign-appearing round and linear along with vascular calcifications redemonstrated scattered throughout the bilateral breasts. There are 2 adjacent skin lesions medially in the left breast, one is marked. There is no suspicious new group of microcalcifications or new suspicious mass in either breast. Overall Assessment: Benign, BI-RAD 2 Management: Screening Mammogram of both breasts in 1 year. A clinical breast exam by your physician is recommended on an annual basis and results should be correlated with mammographic findings. Electronically signed and approved by: Corby France M.D.
== END | disposition home or self-care (01) ==
LOC: RADBDWWP 10:37
PROVIDERS: ATTEND Family Medicine
DX: Z12.31 Encounter for screening mammogram for malignant neoplasm of breast (principal); M81.0 Age-related osteoporosis without current pathological fracture; M85.89 Other specified disorders of bone density and structure, multiple sites; Z78.0 Asymptomatic menopausal state
CPT/HCPCS: 77063; 77067; 77080

== ENCOUNTER → 2024-02-15 | Outpatient (CLI) | payer MEDICARE, OTHER ==
--- NOTE | 2024-02-16 19:39 | MM ---
Reason for Exam: Screening (asymptomatic). Last screening mammogram was performed 12 month(s) ago. Patient History: Menarche at age 9. First Full-Term at age 28. Left ovary removed at age 31. Right ovary removed at age 40. Hysterectomy at age 31. Postmenopausal. Patient has history of breast feeding. Risk Values: Sybil 5 year model risk: 2.2%. NCI Lifetime model risk: 5.3%. Prior Study Comparison: 12/18/2020 Bilateral Screening Mammogram, [facility]. 12/26/2021 Bilateral Screening Mammogram, [facility]. 02/12/2023 Bilateral MG 3D screening mammo w/cad, [facility]. Tissue Density: There are scattered areas of fibroglandular density. Findings: Analyzed By CAD. Benign bilateral secretory and oil cyst calcifications are present. Microclip right breast from prior biopsy. Unchanged central asymmetric density on the left. There is no suspicious group of microcalcifications or new suspicious mass in either breast. Overall Assessment: Benign, BI-RAD 2 Management: Screening Mammogram of both breasts in 1 year. . Patient should continue monthly self-breast exams. A clinical breast exam by your physician is recommended on an annual basis. This exam should not preclude additional follow-up of suspicious palpable abnormalities. Note on Sybil scores and lifetime risk: 1. A Sybil score greater than 3% is considered moderate risk. If this is the case, consider specialist referral to assess eligibility for a risk reducing agent. 2. If overall lifetime risk for the development of breast cancer is 20% or higher, the patient may qualify for future screening with alternating mammogram and breast MRI. Electronically signed and approved by: Kath Olivia M.D. Radiologist
== END | disposition home or self-care (01) ==
LOC: RADMAMWWP 11:24
PROVIDERS: ATTEND Family Medicine
DX: Z12.31 Encounter for screening mammogram for malignant neoplasm of breast (principal); Z78.0 Asymptomatic menopausal state
CPT/HCPCS: 77063; 77067

== ENCOUNTER 2024-04-08 13:02 | Emergency (ER) | payer MEDICARE, OTHER ==
[2024-04-08 13:26] VITALS: RESP 20
--- NOTE | 2024-04-08 13:34 | ED ---
Upper Extremity HPI - General Source: patient, family, RN notes reviewed Mode of arrival: wheelchair Limitations: no limitations <Neela Godfrey - Last Filed: 04/08/24 13:34> - General Source: RN notes reviewed <Ruth Martino - Last Filed: 04/08/24 19:04> <Dionne Evangelista - Last Filed: 04/08/24 20:26> - General Chief Complaint: Extremity Injury, Upper Stated Complaint: fall poss broken R arm Time Seen by Provider: 04/08/24 13:32 - History of Present Illness Initial Comments: Quick Note: This is a 73-year-old female who presents to the emergency department for a fall. States that about an hour prior to arrival she tripped and fell, landing on her right arm. Denies hitting her head. Not taking blood thinners. Most of the pain is in the right mid arm and shoulder. (Neela Godfrey) 73-year-old female presenting to the ER with chief complaint of right arm pain status post mechanical fall 1 hour prior to arrival. States she was walking in her yard and got her toe caught, causing her to trip and fall directly onto her right upper arm. She states she did not hit her head or lose consciousness. Since the injury, she reports she has not been able to move her right arm and reports that pain is severe. Denies numbness or tingling (Ruth Martino) - Related Data Home Medications Medication Instructions Recorded Confirmed Atorvastatin [Lipitor] 40 mg PO Q48H 10/13/14 04/26/21 Clopidogrel [Plavix] 75 mg PO DAILY 10/13/14 04/23/21 Furosemide [Lasix] 40 mg PO SUTUTHSA 10/13/14 04/26/21 Multivitamins, Thera [Multivitamin 1 tab PO DAILY 10/13/14 04/26/21 (formulary)] Pantoprazole Sodium [Protonix] 40 mg PO BID 10/13/14 04/26/21 allopurinoL [Zyloprim] 300 mg PO HS 10/13/14 04/26/21 Cholecalciferol [Vitamin D3 (25 5,000 unit PO DAILY 10/24/14 04/23/21 Mcg = 1000 Iu)] Aspirin EC [Ecotrin Low Dose] 81 mg PO DAILY 06/23/19 04/23/21 Atorvastatin [Lipitor] 80 mg PO Q48H 06/23/19 04/26/21 metOLazone [Zaroxolyn] 2.5 mg PO BRISCOE 06/23/19 04/26/21 Baclofen 5 - 10 mg PO HS 06/24/19 04/26/21 Canagliflozin [Invokana] 100 mg PO DAILY 06/24/19 04/26/21 Colchicine 0.6 mg PO BID PRN 06/24/19 04/26/21 Gabapentin [Neurontin] 300 mg PO TID 06/24/19 04/26/21 Insulin Aspart [NovoLOG] 4 units SQ PC-LUNCH 06/24/19 04/26/21 Insulin Aspart [NovoLOG] 22 unit SQ BID 06/24/19 04/26/21 Levothyroxine Sodium [Synthroid] 150 mcg PO DAILY 06/24/19 04/26/21 Nitroglycerin Sl Tabs [Nitrostat] 0.4 mg SL DIRECTED PRN 06/24/19 04/26/21 Nortriptyline HCl [Pamelor] 25 mg PO HS 06/24/19 04/26/21 Potassium Chloride ER [K-Dur 20] 20 mg PO SUTUTHSA 06/24/19 04/26/21 Zafirlukast [Accolate] 20 mg PO BID 06/24/19 04/26/21 metFORMIN HCL [Glucophage] 500 mg PO BID 06/24/19 04/26/21 Acetaminophen [Tylenol Arthritis] 1,300 mg PO DAILY PRN 07/04/20 04/26/21 Cannabidiol (Cbd) [Epidiolex] 1 dose TOPICAL DAILY PRN 07/04/20 04/26/21 Diclofenac Sodium [Voltaren Gel] 2 gram TOPICAL BID 07/04/20 04/26/21 Furosemide [Lasix] 60 mg PO MOWEFR PRN 07/04/20 04/26/21 HYDROcodone/APAP 5-325MG [[place] 1 tab PO TID PRN 07/04/20 04/26/21 5-325] Iron 28 mg PO Q48H 07/04/20 04/23/21 Loratadine [Claritin] 10 mg PO DAILY 07/04/20 04/26/21 Magnesium 400 mg PO HS 07/04/20 04/23/21 Potassium Chloride [Klor-Con M10] 30 meq PO MOWEFR 07/04/20 04/26/21 atenoloL 25 mg PO DAILY 07/04/20 04/26/21 Hyoscyamine Sulfate [Levsin] 0.125 mg PO Q4H PRN 04/23/21 04/26/21 Losartan [Cozaar] 25 mg PO HS 04/23/21 04/26/21 Ondansetron [Zofran] 4 mg PO Q8HR PRN 04/23/21 04/26/21 Semaglutide [Ozempic] 1 mg SQ BRISCOE 04/23/21 04/26/21 Vitamin B Complex 1 each PO DAILY 04/23/21 04/26/21 Allergies Allergy/AdvReac Type Severity Reaction Status Date / Time ceftriaxone [From Rocephin] Allergy Anaphylaxis Verified 09/29/22 17:23 Cephalosporins Allergy Anaphylaxis Verified 10/09/22 09:01 ibuprofen [From Motrin] Allergy KIDNEY Verified 09/29/22 17:23 FAILURE Iodinated Contrast Media Allergy Rash/Hives Verified 09/29/22 17:23 [Iodinated Contrast Media - IV Dye] isoniazid Allergy RASH,WT Verified 09/29/22 17:23 GAIN,ELEV B/P,ELEV BLOOD SUGAR morphine Allergy Dyspnea Verified 09/29/22 17:23 Penicillins Allergy Anaphylaxis Verified 10/09/22 09:02 venom-honey bee Allergy SWELLING, Verified 09/29/22 17:23 [bee venom (honey bee)] HIVES meperidine HCl [From Demerol] AdvReac Nausea & Verified 09/29/22 17:23 Vomiting SHRIMP Allergy Rash/Hives Uncoded 04/26/21 06:49 VACCINE PRESERVATIVES Allergy HIVES Uncoded 04/26/21 06:49 Review of Systems ROS Other: All systems not noted in ROS Statement are negative. <Neela Godfrey - Last Filed: 04/08/24 13:34> ROS Other: All systems not noted in ROS Statement are negative. <Ruth Martino - Last Filed: 04/08/24 19:04> ROS Other: All systems not noted in ROS Statement are negative. <Dionne Evangelista - Last Filed: 04/08/24 20:26> ROS Statement: Those systems with pertinent positive or pertinent negative responses have been documented in the HPI. Past Medical History Past Medical History: Cancer, Diabetes Mellitus, Deep Vein Thrombosis (DVT), GERD/Reflux, Hyperlipidemia, Hypertension, Myocardial Infarction (AR), Osteoarthritis (OA), Pulmonary Embolus (PE), Renal Disease Additional Past Medical History / Comment(s): . Other HX: NEURAPATHY CRISTOPHER HANDS AND FEET,MITRAL VALVE PROLAPSE,VARICOSE VEINS,,KIDNEY STONES, Colorectal fistula 2019, INSULIN DEPENDENT , MELENOMA , CHRONIC KIDNEY DISEASE , Last Myocardial Infarction Date:: 2006 History of Any Multi-Drug Resistant Organisms: None Reported Past Surgical History: Appendectomy, Cholecystectomy, Heart Catheterization With Stent, Hysterectomy, Joint Replacement, Tonsillectomy Additional Past Surgical History / Comment(s): 10/24/14 RIGHT shoulder SURGERY, injection R middle finger. COLECTOMY R/T RUPTURED DIVERTICULI AND ABSCESS,LAB BAND 2007-FILL PRESENT TO SEE DR FREGOSO PRIOR TO OR TO HAVE REMOVED.,CARDIAC STENTS X2, REPAIR RT ACHILLES TENDON,CRISTOPHER CARPEL TUNNEL REPAIR,LT RADIAL HEAD PARTIALLY REMOVED W/ REPAIR,LAMINECTOMY L1-L4,FUSION L5- S1, TOTAL THYROIDECTOMY . right humeral head replaced Past Anesthesia/Blood Transfusion Reactions: Postoperative Nausea & Vomiting ( PONV) Additional Past Anesthesia/Blood Transfusion Reaction / Comment(s): PONV YEARS AGO WITH DEMEROL Date of Last Stent Placement:: 2006 Past Psychological History: No Psychological Hx Reported Smoking Status: Former smoker - Past Family History Father Family Medical History: Cancer, Deep Vein Thrombosis (DVT), Pulmonary Embolus Additional Family Medical History / Comment(s): SKIN CANCER Mother Family Medical History: Cancer, Deep Vein Thrombosis (DVT), Pulmonary Embolus Additional Family Medical History / Comment(s): SKIN CANCER <Neela Godfrey - Last Filed: 04/08/24 13:34> General Exam Limitations: no limitations <Neela Godfrey - Last Filed: 04/08/24 13:34> General appearance: alert, in no apparent distress Head exam: Present: atraumatic, normocephalic, normal inspection Eye exam: Present: normal appearance, PERRL, EOMI. Absent: scleral icterus, conjunctival injection, periorbital swelling Respiratory exam: Present: normal lung sounds bilaterally. Absent: respiratory distress, wheezes, rales, rhonchi, stridor Cardiovascular Exam: Present: regular rate, normal rhythm, normal heart sounds. Absent: systolic murmur, diastolic murmur, rubs, gallop, clicks Right Shoulder Exam: Present: normal inspection, tenderness (Tenderness along anterior aspect of right shoulder). Absent: full ROM (Limited range of motion), swelling, ecchymosis, deformity Upper Arm exam: Present: normal inspection, tenderness (Diffuse tenderness along anterior and posterior aspects of upper arm). Absent: full ROM (Limited range of motion) Elbow exam: Present: normal inspection, full ROM. Absent: tenderness, swelling Forearm Wrist exam: Present: normal inspection, full ROM. Absent: tenderness, swelling Hand Wrist exam: Present: normal inspection, full ROM. Absent: tenderness, swelling Vascular: Present: normal capillary refill. Absent: vascular compromise Neurological exam: Present: alert, oriented X3, CN II-XII intact Psychiatric exam: Present: normal affect, normal mood Skin exam: Present: warm, dry, intact, normal color. Absent: rash <Ruth Martino - Last Filed: 04/08/24 19:04> - General Exam Comments Initial Comments: Visual Physical Exam Vital signs reviewed General: Well-appearing, nontoxic, no acute distress. Head: Normocephalic, atraumatic Eyes: PERRLA, EOMI ENT: Airway patent Chest: Nonlabored breathing Skin: No visual rash, normal skin tone Neuro: Alert and oriented 3 Musculoskeletal: No gross abnormalities (Neela Godfrey) Course Vital Signs 04/08/24 04/08/24 13:22 20:17 Temperature 97.6 F 98.1 F Pulse Rate 68 72 Respiratory 20 20 Rate Blood Pressure 119/50 181/88 O2 Sat by Pulse 98 97 Oximetry Medical Decision Making <Neela Godfrey - Last Filed: 04/08/24 13:34> <Ruth Martino - Last Filed: 04/08/24 19:04> - Medical Decision Making I performed the QuickNote portion of this chart. Signed Neela Godfrey PA-C. (Neela Godfrey) Was pt. sent in by a medical professional or institution ([facility], GI TECHNICIAN, urgent care, hospital, or assisted...) When possible be specific @ -[No] Did you speak to anyone other than the patient for history (EMS, parent, family, police, friend...)? What history was obtained from this source @ -[No] Did you review nursing and triage notes (agree or disagree)? Why? @ -[I reviewed and agree with nursing and triage notes] Were old charts reviewed (outside hosp., previous admission, EMS record, old EKG, old radiological studies, urgent care reports/EKG's, assisted records)? Report findings @ -[No old charts were reviewed] Differential Diagnosis (chest pain, altered mental status, abdominal pain women, abdominal pain men, vaginal bleeding, weakness, fever, dyspnea, syncope, headache, dizziness, GI bleed, back pain, seizure, CVA, palpatations, mental health, musculoskeletal)? @ -Differential Musculoskeletal Muscular strain, contusion, ligament sprain, fracture, arthritis, septic arthritis, bursitis, cellulitis, muscle spasm, nerve compression, DVT, arterial occlusion, herpes zoster, electrolyte abnormality, tumor.... This is not meant to be in all inclusive list EKG interpreted by me (3pts min.). @ -None X-rays interpreted by me (1pt min.). @ -X-ray of right shoulder and humerus revealed no acute fracture or dislocation. CT interpreted by me (1pt min.). @ -CT of shoulder and humerus pending at time of signout. U/S interpreted by me (1pt. min.). @ -[None done] What testing was considered but not performed or refused? (CT, X-rays, U/S, labs)? Why? @ -[None] What meds were considered but not given or refused? Why? @ -[None] Did you discuss the management of the patient with other professionals (professionals i.e. , PA, GI TECHNICIAN, lab, RT, psych nurse, social media marketing manager, clinical quality assurance associate, teacher, plain clothes police officer, family independence case manager)? Give summary @ -[No] Was smoking cessation discussed for >3mins.? @ -[No] Was critical care preformed (if so, how long)? @ -[No] Were there social determinants of health that impacted care today? How? (Homelessness, low income, unemployed, alcoholism, drug addiction, transportation, low edu. Level, literacy, decrease access to med. care, [facility], rehab)? @ -[No] Was there de-escalation of care discussed even if they declined (Discuss DNR or withdrawal of care, Hospice)? DNR status @ -[No] What co-morbidities impacted this encounter? (DM, HTN, Smoking, COPD, CAD, Canc er, CVA, ARF, Chemo, Hep., AIDS, mental health diagnosis, sleep apnea, morbid obesity)? @ -[None] Was patient admitted / discharged? Hospital course, mention meds given and route, prescriptions, significant lab abnormalities, going to OR and other pertinent info. @ -Patient was seen and evaluated for right arm pain status post mechanical fall prior to arrival to the ER. Patient is neurovascularly intact. X-ray reveals no acute fracture or dislocation. Upon reevaluation, patient continues to have severe pain and limited range of motion of arm, therefore CT of humerus/shoulder was performed. CT pending at time of signout to Dionne Evangelista PA-C at 7:10 PM (Ruth Martino) Disposition <Neela Godfrey - Last Filed: 04/08/24 13:34> <Ruth Martino - Last Filed: 04/08/24 19:04> Is patient prescribed a controlled substance at d/c from ED?: No Time of Disposition: 20:11 <Dionne Evangelista - Last Filed: 04/08/24 20:26> Clinical Impression: Right shoulder pain, Fracture of humeral head Disposition: HOME SELF-CARE Condition: Good Instructions (If sedation given, give patient instructions): Shoulder Pain (ED) Additional Instructions: Return to the emergency department if symptoms worsen or improve. Recommend follow-up with your management specialist for further evaluation. Take Tylenol at home as needed for pain. Referrals: Elizabeth Cristobal MD [Primary Care Provider] - 1-2 days
--- NOTE | 2024-04-08 14:08 | XR ---
EXAMINATION TYPE: XR humerus RT DATE OF EXAM: 04/08/2024 COMPARISON: NONE HISTORY: Pain TECHNIQUE: 2 views submitted. FINDINGS: The osseous structures are intact. Postsurgical change right shoulder with severe AC joint arthropath y. The degenerative and hypertrophic change of the spine. IMPRESSION: 1. No acute fracture or dislocation.
--- NOTE | 2024-04-08 14:10 | XR ---
EXAMINATION TYPE: XR shoulder complete RT DATE OF EXAM: 04/08/2024 COMPARISON: NONE HISTORY: Pain TECHNIQUE: Two views are submitted. FINDINGS: The osseous structures are intact. There is no acute fracture or dislocation. Severe right AC joint arthropathy. Postsurgical change right shoulder.. IMPRESSION: 1. No acute process.
--- NOTE | 2024-04-08 20:17 | CT ---
EXAMINATION TYPE: CT shoulder RT wo con DATE OF EXAM: 04/08/2024 4:46 PM COMPARISON: Same day radiographs CLINICAL INDICATION:Female, 73 years old with history of right arm injury; PHH, right arm injury TECHNIQUE: Noncontrast CT was obtained of the right shoulder. Axial coronal and sagittal reformatted images, soft tissue and bone window were submitted for review. 3-D reconstruction was created on a [id number] workstation. Contrast used: mL of , Oral contrast used: None CT DLP: 2499.4 mGycm, Automated exposure control for dose reduction was used. FINDINGS: Bone: Generalized osteopenia. No lytic/blastic lesion. There is a humeral head arthroplasty, appears intact and normally positioned. However artifact from t his limits evaluation of adjacent structures. Nevertheless it is seen that in the humeral head just l ateral to the prosthesis, there is cortical buckling and disruption best seen on the bone sagittal se claudine, consistent with acute fracture. Background chronic degenerated appearance of the bony glenoid without evidence of fracture or glenohu meral dislocation. Chronic degenerative change of the acromioclavicular joint as well. There is under surface thinning and remodeling of the acromion related to high riding humeral head, suggestive of ba ckground chronic rotator cuff disease. The other visualized osseous structures appear to be intact. Soft tissues: There appears to be a small to moderate-sized shoulder joint effusion. Soft tissues about the shoulde r otherwise unremarkable. Other: In the visualized chest, partial eventration of the right hemidiaphragm with elevation of the hepatic dome and basilar atelectasis is seen. No evidence of a lung contusion or pneumothorax. There are mil d emphysematous changes. Right lung shows multiple solid nodules, one of the largest 6 mm in the supe rior segment right lower lobe. Partially seen right coronary artery calcifications. Multiple surgical clips in the neck may be from thyroidectomy. Calcifications of the carotid arteries and along the ao rtic arch. In the abdomen, there is a lobular appearance of the right kidney with multiple lesions, n onspecific and could all be cysts but underlying solid lesion would be difficult to exclude. Consider outpatient ultrasound. Diverticulum-like structure in the right upper quadrant may be from the duodenum. Visualized spine shows moderate to severe diffuse degenerative changes with flowing syndesmophytes at multiple levels suggesting superimposed DISH. IMPRESSION: 1. Right humeral head arthroplasty, appears intact and normally positioned. 2. Acute-appearing fracture in the humeral head just lateral to the arthroplasty, as described. 3. Background chronic/degenerative changes. Small to moderate shoulder joint effusion. 4. Multiple incidental findings in the visualized chest and abdomen, including multiple, solid pulmo nary nodules that are less than 6mm in size. According to the 2017 Fleischner criteria, if the patien t is low risk, No routine follow-up recommended. If high risk, optional CT at 12 months recommended.
[2024-04-08 20:23] VITALS: BP 181/88; PULSE 72; TEMP 98.1
== END 2024-04-08 20:33 | disposition home or self-care (01) ==
LOC: EC 13:02
DX: S42.201A Unspecified fracture of upper end of right humerus, initial encounter for closed fracture (principal); Z87.891 Personal history of nicotine dependence; Z88.0 Allergy status to penicillin; Z88.1 Allergy status to other antibiotic agents; Z88.5 Allergy status to narcotic agent; Z88.6 Allergy status to analgesic agent; Z88.8 Allergy status to other drugs, medicaments and biological substances; Z91.041 Radiographic dye allergy status; Z91.030 Bee allergy status; Z90.49 Acquired absence of other specified parts of digestive tract; Z95.5 Presence of coronary angioplasty implant and graft; W01.0XXA Fall on same level from slipping, tripping and stumbling without subsequent striking against object, initial encounter; Y93.01 Activity, walking, marching and hiking
CPT/HCPCS: 99284

== ENCOUNTER → 2025-05-17 | Outpatient (CLI) | payer MEDICARE, OTHER ==
--- NOTE | 2025-05-17 15:00 | US ---
EXAMINATION TYPE: US kidneys/renal and bladder DATE OF EXAM: 05/17/2025 COMPARISON: NONE CLINICAL INDICATION: Female, 74 years old with history of N18.32 CKD; no symptoms, CKD TECHNIQUE: Grayscale imaging of the bilateral kidneys and urinary bladder: FINDINGS: EXAM MEASUREMENTS: Right Kidney: 9.6 x 4.5 x 5.4 cm Left Kidney: 11.0 x 4.6 x 5.6 cm Large habitus limits exam Right Kidney: mid pole cyst seen = 1.5 x 1.5 x 1.5cm Left Kidney: inferior pole cyst seen = 2.3 x 1.8 x 2.7cm Bladder: wnl There is no evidence for hydronephrosis at this point in time. No nephrolithiasis is seen. No catrachita s are identified. The urinary bladder is anechoic. IMPRESSION: 1. Bilateral renal cysts [facility], Workstation: [facility], 05/17/2025 2:58 PM
== END | disposition home or self-care (01) ==
LOC: RADUSWWP 14:12
PROVIDERS: ATTEND Internal Medicine
DX: N18.32 Chronic kidney disease, stage 3b (principal); N28.1 Cyst of kidney, acquired
CPT/HCPCS: 76770

== ENCOUNTER → 2025-05-17 | Outpatient (CLI) | payer MEDICARE, OTHER ==
--- NOTE | 2025-05-17 15:43 | MM ---
Reason for Exam: Screening (asymptomatic). Last mammogram was performed 1 year(s) and 3 month(s) ago. Patient History: Menarche at age 9. First Full-Term at age 28. Left ovary removed at age 31. Right ovary removed at age 40. Hysterectomy at age 31. Postmenopausal. Patient has history of breast feeding. Risk Values: Sybil 5 year model risk: 2.2%. NCI Lifetime model risk: 5.0%. Prior Study Comparison: 12/26/2021 Bilateral Screening Mammogram, [facility]. 02/12/2023 Bilateral MG 3D screening mammo w/cad, [facility]. 02/15/2024 Bilateral MG 3D screening mammo w/cad, [facility]. Tissue Density: The breasts are almost entirely fatty. Findings: Analyzed By CAD. Right breast: There is no suspicious group of microcalcifications or new suspicious mass. Benign-appearing calcifications right breast. Left breast: There is no suspicious group of microcalcifications or new suspicious mass. Benign-appearing calcifications left breast. Overall Assessment: Benign, BI-RAD 2 Management: Screening Mammogram of both breasts in [address] [facility] will attempt to contact patient to return for supplemental views and ultrasound if indicated. Patient should continue monthly self-breast exams. A clinical breast exam by your physician is recommended on an annual basis. This exam should not preclude additional follow-up of suspicious palpable abnormalities. Note on Sybil scores and lifetime risk: 1. A Sybil score greater than 3% is considered moderate risk. If this is the case, consider specialist referral to assess eligibility for a risk reducing agent. 2. If overall lifetime risk for the development of breast cancer is 20% or higher, the patient may qualify for future screening with alternating mammogram and breast MRI. [facility], , 05/17/2025 3:39 PM. Electronically signed and approved by: Keon Gomes DO
--- NOTE | 2025-05-18 12:49 | BD ---
EXAMINATION TYPE: Axial Bone Density DATE OF EXAM: 05/17/2025 CLINICAL HISTORY: 74 years old Female. ICD-10 CODE: M81.0 AGE RELATED OSTEO , Additional History: Height: 65.7 in Weight: 276 lbs FRAX RISK QUESTIONS: Family History (Parent hip fracture): yes father History of Fracture in Adulthood: yes rt ankle; rt humerus, lt elbow Secondary Osteoporosis: 3. Menopause before 45: partial hysterectomy age 31 Rheumatoid Arthritis: yes HISTORY OF: Surgery to Spine: l-spine 2011 MEDICATIONS: Thyroid Medications: yes Which medication: Synthroid How Lon years EXAM MEASUREMENTS: Bone mineral densitometry was performed using the PalindromX System. Bone mineral density about the R hip (g/cm2): 0.901 Bone mineral density about the L hip (g/cm2): 0.918 T Score values are as follows: -----R Neck: -0.5 -----L Neck: -0.8 -----R Total: -0.8 -----L Total: -0.7 Z Score values are as follows: -----R Neck: 0.7 -----L Neck: 0.3 -----R Total: 0.0 -----L Total: 0.1 Bone mineral density has: Decreased -5.3% since study of: 02/12/2023 Bone mineral density about the L Wrist (g/cm2): 0.394 T Score values are as follows: -----Dist. R+U: -2.5 -----Prox. R+U: -4.1 -----Radius total: -4.6 Z Score values are as follows: -----Dist. R+U: -0.3 -----Prox. R+U: -1.9 -----Radius total: -2.4 Bone mineral density has: Increased 2.0% since study of: 02/12/2023 FRAX%s: The graph provided illustrates a 21.9% chance for a major osteoporotic fx and a 7.0% chance f or the hips probability for fx in 10 years time. IMPRESSION: Osteoporosis (T Score less than -2.5). There is increased fracture risk and therapy is usually indicated based on age. Re-Screen 1-2 years. NOTE: T-SCORE=SD OF THE YOUNG ADULT MEAN. [facility], , 05/18/2025 12:46 PM
== END | disposition home or self-care (01) ==
LOC: RADBDWWP 14:15
PROVIDERS: ATTEND Family Medicine
DX: Z12.31 Encounter for screening mammogram for malignant neoplasm of breast (principal); M81.0 Age-related osteoporosis without current pathological fracture; R92.1 Mammographic calcification found on diagnostic imaging of breast; R92.313 Mammographic fatty tissue density, bilateral breasts; Z78.0 Asymptomatic menopausal state
CPT/HCPCS: 77063; 77067; 77080